=== PATIENT | male | born 1950 | race Caucasian/White ===

== ENCOUNTER 2018-11-21 01:36 | Outpatient (CLI) | payer MEDICARE, SELFPAY ==
[2018-11-21 12:21] LABS: ALT 28 U/L (12-78); AST 21 U/L (15-37); Albumin 3.7 g/dL (3.4-5.0); Alkaline Phosphatase 81 U/L (46-116); Anion Gap 6.8 mmol/L (3-11); BUN 20 mg/dL (7-18); Bilirubin, Total 0.3 mg/dL (0.2-1.0); CO2 32.2 mmol/L (21.0-32.0); CREATININE 0.96 mg/dL (0.70-1.30); Calcium 8.7 mg/dL (8.5-10.1); Chloride 98 mmol/L (98-107); Cholesterol 158 mg/dL (50-200); Glucose 91 mg/dL (70-100); HDL Cholesterol 35 mg/dL (40-60); LDL CHOLESTEROL 112 mg/dL (<100); Potassium 4.7 mmol/L (3.5-5.1); Sodium 137 mmol/L (136-145); Total Protein 7.5 g/dL (6.4-8.2); Triglyceride 77 mg/dL (30-150)
[2018-11-21 12:25] LABS: Abs Immature Grans 0.03 k/cumm (0.0-0.09); Absolute Basophil Count 0.06 k/cumm (0.0-0.2); Absolute Eosinophil Count 0.31 k/cumm (0.0-0.7); Absolute Lymphocyte Count 0.61 k/cumm (1.2-3.4); Absolute Monocyte Count 0.58 k/cumm (0.11-0.7); Absolute Neutrophil Count 3.83 k/cumm (1.2-6.7); Basophils % 1.1; Eosinophils % 5.7; HCT 47.3 % (40.0-50.0); Immature Grans % 0.6; Lymphocytes % 11.3; Mean Corp. HGB Concentration 31.7 g/dL (32.0-36.0); Mean Corpuscular Hemoglobin 27.5 pg (27.0-33.0); Mean Corpuscular Volume 86.8 fL (80-95); Mean Platelet Volume 9.9 fL (8.0-11.0); Monocytes % 10.7; Neutrophils % 70.6; Platelet Count 187 x1000/uL (130-400); RBC 5.45 m/cumm (4.50-6.00); RBC Distribution Width 15.8 % (11.8-14.1); White Blood Cell Count 5.42 k/cumm (4.4-10.8)
== END 2018-11-21 01:56 ==
PROVIDERS: PCP Internal Medicine; Visit Provider Internal Medicine
DX: I10 Essential (primary) hypertension (principal)
CPT/HCPCS: 36415; 80053; 80061; 83721; 85025

== ENCOUNTER 2020-08-30 02:51 | Outpatient (CLI) | payer MEDICARE, SELFPAY ==
[2020-08-30 13:29] LABS: CREATININE 0.93 mg/dL (0.70-1.30); Potassium 4.4 mmol/L (3.5-5.1)
== END 2020-08-30 03:11 ==
PROVIDERS: PCP Nurse Practitioner; Visit Provider Nurse Practitioner
DX: I10 Essential (primary) hypertension (principal)
CPT/HCPCS: 36415; 82565; 84132

== ENCOUNTER → 2020-10-17 08:47 | Outpatient (BNVA) | payer MEDICARE, SELFPAY | PROVIDERS: PCP Nurse Practitioner; Referring Provider Nurse Practitioner; Visit Provider Surgery | DX: Z12.11 Encounter for screening for malignant neoplasm of colon (principal) ==

== ENCOUNTER 2020-10-21 03:26 | Outpatient (CLI) | payer MEDICARE, SELFPAY ==
[2020-10-24 17:18] LABS: COVID-19 RT-PCR Result NEGATIVE (Negative)
== END 2020-10-21 03:46 ==
PROVIDERS: PCP Nurse Practitioner; Visit Provider Surgery
DX: Z11.59 Encounter for screening for other viral diseases (principal); Z01.818 Encounter for other preprocedural examination
CPT/HCPCS: U0003

== ENCOUNTER 2020-10-25 08:47 | Day surgery (SDC) | payer MEDICARE, SELFPAY ==
[2020-10-25 08:55] VITALS: BP 128/71; PULSE 80; RESP 19; TEMP 37; O2SAT 94
[2020-10-25] MEDS: Lactated Ringers 1,000 ML 80 ML IV (09:30)
--- NOTE | 2020-10-25 11:39 | W.PM.DSUDISC ---
Discharge Plan Disposition Patient Disposition: HOME Condition: Good Discharge Details Reason For Visit: Colonoscopy Attending Provider: Toña Carpenter Primary Care Provider: Jennifer Delgado Home Meds and New Rx's Prescriptions: Continued furosemide 40 mg tablet 40 mg PO DAILY Qty: 90 RF: 3 lisinopril [Zestril] 10 mg tablet 10 mg PO DAILY Qty: 90 RF: 4 omega-3 fatty acids 1,000 mg capsule 1,000 mg PO DAILY RF: 0 ascorbic acid (vitamin C) [Vitamin C] 500 MG tablet 500 mg PO DAILY RF: 0 vitamin E (dl, acetate) 200 UNIT capsule 200 unit PO DAILY RF: 0 calcium carbonate-vitamin D3 [Caltrate with Vitamin D3] 1 EACH tablet 1 ea PO DAILY RF: 0 Discharge Instructions Additional Instructions: Findings: Three polyps were removed. My office will contact you with biopsy results. Follow up: Plan for a colonoscopy in 1-3 years depending on biopsy results. Please call if you develop: fevers >101.5 Nausea or Vomiting Abdominal pain that is not transient Bleeding DAY SURGERY UNIT POST COLONOSCOPY INSTRUCTIONS 1. Because there will be medication in your system for the next 24 hours, you may feel a little sleepy. Your coordination will be affected. Therefore: a. Do not drive or operate dangerous equipment for 24 hours. b. Do not drink alcohol beverages for 24 hours (not even beer). c. Plan to go home and rest for the day. 2. Generally there are no restrictions on your activity after a day or so has gone by, but you may feel a bit fatigued for a few days. 3 After you arrive home you may have a light meal and return to a normal diet as you can tolerate it without feeling sick to your stomach. 4. After surgery, you may feel pain or discomfort. This should be only transient, but if it persists please contact your doctor. 5. If there are any questions regarding the findings of your procedure, please feel free to contact your doctor. 6. If you are unable to contact your doctor with a problem, contact the hospital at [phone]. 7. Continue all your regular medications unless directed otherwise. I understand the above instructions and have no questions. Signature of Patient or Responsible Adult Escort Date/Time Name of Responsible Adult Escort Signature of Nurse Date/Time Activity:: Activity as Tolerated Diet:: As Tolerated Discharge Orders Discharge Orders: Discharge Order (Routine); Ordered 10/25/20 Ordered By: Toña Carpenter DS: Diagnosis Discharge Diagnosis (1) Colon polyps: Status: Acute
--- NOTE | 2020-10-25 11:40 | W.COLOREPORT ---
Date of service: 10/25/20 Time of Service: 13:20 Colonoscopy Report Date of procedure: 10/25/20 Pre-op diagnosis general: Screening Post-op diagnosis procedure note: other (Polyp at hepatic flexure, rectal polyps times two. Mild diverticulosis) Procedure: Colonoscopy with snare polypectomy Surgeon: Toña Carpenter Anesthesia proc note operative: MAC Indications: This 70 year old man presents for screening colonoscopy. His last one in 2009 showed a submucosal lipoma. He has no symptoms or FH colon cancer. Procedure Description: The patient was placed in the left Fitzpatrick position. Propofol was titrated to sedation. Digital rectal examination revealed no abnormalities. The scope was advanced to the proximal ascending colon to the limit of the scope. This could not be navigated any further due to his large size and difficulty applying pressure. The prep was adequate. The scope was slowly withdrawn over the course of greater than 6 minutes with a less than 1cm polyp found at the hepatic flexure. This was removed with the snare and a hemostatic clip applied as a precaution. The polyp was not retrieved. No abnormalities were seen in the transverse, descending or sigmoid colon with the exception of mild diverticulosis. In the rectum a 2cm polyp on a short stalk was removed with the snare and retrieved. A hemostatic clip was applied to the site. An adjacent less than 1cm polyp was removed with the snare and sent in the same container. Retroflexed view was normal. The patient tolerated the procedure well and was stable to recovery. He will need a colonoscopy in 1-3 depending on biopsy results.
--- NOTE | 2020-10-25 12:30 | BOWEL_PTH ---
PATIENT: Ezio Paulson I LOC: [facility] U#:[id number] AGE/SX: 70/M ROOM: RE10/25/[address]: Toña Carpenter MD : 1950 BED: DIS: 10/25/2020 SPEC #: [id number] RECD: 10/25/20 17:50 STATUS: ALINA REQ #: [id number] GUSTAVO: 10/25/20 12:[address]: Toña Carpenter DEPT: Surgical Specimen RECD BY: Josie Crook ENTERED: 10/25/20 17:51 SP TYPE: Bowel OTHR DR: Jennifer Delgado, PhD HALF BACKER Tissues: 1 - BIOPSY BOWEL Procedures: GROSS AND MICRO LEVEL 4 Comments: [id number]
[2020-10-25 13:42] VITALS: BP 137/71; PULSE 68; RESP 17; TEMP 36.3; O2SAT 96
== END 2020-10-25 14:16 | disposition home or self-care (01) ==
PROVIDERS: PCP Nurse Practitioner; Visit Provider Surgery
PROC: 0DJD8ZZ Inspection of Lower Intestinal Tract, Via Natural or Artificial Opening Endoscopic (ICD-10-PCS; CPT 45378; principal; 2020-10-25 11:30)
DX: Z12.11 Encounter for screening for malignant neoplasm of colon (principal); D12.8 Benign neoplasm of rectum; K57.30 Diverticulosis of large intestine without perforation or abscess without bleeding; E66.9 Obesity, unspecified; Z68.43 Body mass index [BMI] 50.0-59.9, adult
CPT/HCPCS: 45385; 88305

== ENCOUNTER 2021-12-18 09:55 | Inpatient (IN) | payer MEDICARE, SELFPAY ==
[2021-12-18] VITALS (42 sets, daily range): BP systolic 121–168; BP diastolic 55–105; PULSE 81–113; RESP 16–27; TEMP 36.9–37.7; O2SAT 95–99
--- NOTE | 2021-12-18 10:15 | DI.CT_ITS ---
Exam(s) CT ABD AORTA CTA W RUNOFF EXAM: CT ABD AORTA CTA W RUNOFF CLINICAL HISTORY: trauma, decreased pulse, pain from knee to toes. TECHNIQUE: Imaging Protocol: Axial computed tomography images with coronal and sagittal reformatted images were created and reviewed CONTRAST MATERIAL: Intravenous: Omnipaque 350 Contrast volume:150 mL Oral: None COMPARISON: No exams were available for comparison FINDINGS: Abdominal aorta: There is no aneurysm nor significant stenosis in the abdominal aorta. No evidence o f significant stenosis at the level of the aortic bifurcation. Both common iliac arteries are patent . Upper normal diameters. No stenosis at the junction of the common and external iliac arteries on either side. Both internal iliac arteries are patent. Both external iliac arteries are patent with no evidence of significant stenosis. Both common femoral arteries are patent. Interpretation below the level groins is somewhat difficult because of opacification both arteries an d veins. RIGHT LOWER EXTREMITY: The right SFA is patent. Exhibits some mural thrombosis in Vitaliy's canal but with only mild stenosis at this level. Popliteal artery is patent. No evidence of popliteal artery aneurysm barron cyst is noted in the popliteal fossa. Interpretation below the level of the knees is difficult because of opacification of both anteriorly and venous systems. There is no obvious thrombosis within the venous lumens. Incidentally is a large joint effusion and Barron's cyst in the right knee. Degenerative changes in t he right knee. There is prominent edema throughout the entire right lower extremity below the knee. LEFT LOWER EXTREMITY: The left SFA is patent.. Left popliteal artery is patent. Large left knee camacho nt effusion and Barron's cyst in the popliteal fossa noted. No evidence of popliteal artery aneurysm. Interpretation below the level knee is difficult because of presence of both arterial and venous op acification. However, there appears to be probably three-vessel runoff in the calf. OTHER: There is abundant soft tissue edema. No distinct delineated fluid collection. IMPRESSION: 1. As above. Less than optimal study below the level knees because of the presence of simultaneous v enous and arterial enhancement bilaterally. No evidence of significant arterial stenosis in the abdo radha aorta, aortic bifurcation, aortoiliac segments nor in the SFA arteries nor in either popliteal arteries. Also no evidence of popliteal artery aneurysm. 2. Large bilateral knee joint effusions and bilateral popliteal Barron's cysts noted. 3. No evidence of abdominal aortic aneurysm. 4. No evidence of obvious venous thrombosis. 5. Diffusely edematous right lower extremity. No distinct fluid collection-abscess. RADIATION DOSE DELIVERED: 3,087.81mGy.cm Total DLP DATA REPOSITORY: All CT scans at this facility are submitted to the National Radiology Data Registry (NRDR) Dose Index Registry (DIR) with the [employer] ([employer]). RADIATION OPTIMIZATION: All CT scans at this facility use at least one of these dose optimization te chniques: automated exposure control; mA and/or kV adjustment per patient size (includes targeted exa ms where dose is matched to clinical indication); or iterative reconstruction.
--- NOTE | 2021-12-18 10:15 | RT.EKG_ITS ---
APPROVED REPORT Exam: Resting ECG Reason for Exam: tachycardia Patient Location: E HR:101 bpm ECG Measurements Heart Rate 101 AXIS NE 236 P -42 QRSd 128 QRS -71 QT 349 T 86 QTc 454 Conclusion Sinus tachycardia with irregular rate...V-rate 85-128, variation>10% Prolonged NE interval...NE >215, V-rate 91-120 Left bundle branch block...QRSd>120, broad/notched R sinus tachycardia with ectopy versus atrial fibrillation, intraventricular conduction delay, no STEMI
--- NOTE | 2021-12-18 10:15 | DI.US_ITS ---
Exam(s) US EXTREMITY VENOUS BI EXAM: US EXTREMITY VENOUS BI CLINICAL HISTORY: b/l lower leg pain TECHNIQUE: Grayscale, color, and doppler imaging of the deep venous system of both lower extremities was performed. COMPARISON: No exams were available for comparison FINDINGS: There is no evidence of intraluminal thrombus and there is normal compression and augmentation demons trated within the common femoral veins, femoral veins, and popliteal veins of both lower extremities. In the calves the interrogated veins also exhibit normal compression/ augmentation properties. The greater saphenous veins also appear patent as do the saphenofemoral junctions bilaterally.. IMPRESSION: 1. No ultrasound evidence of DVT in either lower extremity. DATA REPOSITORY:
--- NOTE | 2021-12-18 10:23 | W.ED.GENAD ---
Discharge Plan Disposition Patient Disposition: [facility] INPATIENT Discharge Details Chief Complaint: Cellulitis Clinical Impression: Cellulitis, Rhabdomyolysis Admit Date/Time: 12/18/21 14:54 Admit Provider: Susy Roa Attending Provider: Susy Roa Primary Care Provider: Jennifer Delgado ED Provider: Juanis Winslow Discharge Data Discharge Date/Time-TO BE ENTERED AT DEPARTURE: 12/18/21 15:29 Medical Decision Making Ezio Paulson is a 71-year-old man with history of hypertension, obesity presenting to emergency department with right lower leg pain. Patient reports that he has been feeling generally unwell since yesterday morning. Patient reports that he has recently been treated for cellulitis of the right lower leg, has had ongoing issues with infection in this leg but is not currently on any antibiotics. Record review shows clinic note 11/07/2021 for wound care visit for right lower extremity cellulitis, patient not prescribed any antibiotics at that time as exam was apparently improving. Patient reports that he has had gradually worsening pain and swelling in the right lower leg. Patient reports that yesterday he felt generally unwell, and thinks that he may have had a fever yesterday morning. Patient reports that he fell yesterday at approximately 6 PM. He states that he went to stand up, and felt that my legs would not hold me. And fell to the ground. Patient reports that he remembers entire event, did not hit his head, no loss of consciousness. Patient reports he was unable to stand on his own after the fall, and spent the night on the floor. He was able to call EMS this morning who provided a lift assist, however patient fell again, could not get off the floor, and patient was brought to the emergency department. He reports pain in both legs from the knees down, however reports the pain in the right lower extremity is significantly worse than the left. Patient noted to have cyanotic discoloration of the right foot worse than the left, patient reports that he believes this is new. He denies any other pain, numbness, localized weakness, vomiting, diarrhea, shortness of breath, cough. He reports chronic rash to the right lower leg that he believes is worsening, denies any other rash. Denies any trauma other than falls as above. Exam shows Pt alert, conversing normally, ill-appearing. Borderline tachycardia. B/l LE edema, R>>L, diffuse chronic skin changes to the right lower leg with surrounding circumferential erythema, right DP pulse intact but decreased compared to left, mild cyanosis of right foot, able to range right ankle, diffuse TTP of the right knee, lower leg, and foot, diffuse mild TTP of the left knee, lower leg, and foot. No TTP of the hips b/l. Concern for cellulitis, possible fx of the right knee/tib/fib, vascular compromise of the RLE, early sepsis, rhabdo, metabolic/lyte derangement. Exam/hx at this time not c/w acute emergent intra-cranial trauma, ACS, acute aortic pathology, compartment syndrome. Doubt nec fasc. Plan for IV placement, EKG, telemetry, screening labs, CTA LEs, DVT studies b/l LEs, IV vancomycin, IVF hydration. CT shows no gas, no fx, no DVT, no arterial occlusion. Labs show WBC 21.55, Cr 1.4, Ck >10,000. Plan for admission. Medical Records Medical records reviewed: Yes I reviewed the patient's medical records. Imaging Data Radiologic Study: Attestation: I personally reviewed and interpreted this imaging study as follows: Radiologist's impression: Exam(s) CT ABD AORTA CTA W RUNOFF EXAM: ? CT ABD AORTA CTA W RUNOFF CLINICAL HISTORY: ? trauma, decreased pulse, pain from knee to toes. ? TECHNIQUE:? Imaging Protocol: Axial computed tomography images with coronal and sagittal reformatted images were created and reviewed CONTRAST MATERIAL:? Intravenous: Omnipaque 350 Contrast volume:150 mL Oral: None COMPARISON:? No exams were available for comparison FINDINGS: Abdominal aorta: There is no aneurysm nor significant stenosis in the abdominal aorta.? No evidence of significant stenosis at the level of the aortic bifurcation.? Both common iliac arteries are patent.? Upper normal diameters.? No stenosis at the junction of the common and external iliac arteries on either side.? Both internal iliac arteries are patent.? Both external iliac arteries are patent with no evidence of significant stenosis.? Both common femoral arteries are patent. Interpretation below the level groins is somewhat difficult because of opacification both arteries and veins. RIGHT LOWER EXTREMITY: The right SFA is patent.? Exhibits some mural thrombosis in Vitaliy's canal but with only mild stenosis at this level.? Popliteal artery is patent.? No evidence of popliteal artery aneurysm barron cyst is noted in the popliteal fossa.? Interpretation below the level of the knees is difficult because of opacification of both anteriorly and venous systems. There is no obvious thrombosis within the venous lumens. Incidentally is a large joint effusion and Barron's cyst in the right knee.? Degenerative changes in the right knee. There is prominent edema throughout the entire right lower extremity below the knee. LEFT LOWER EXTREMITY: The left SFA is patent..? Left popliteal artery is patent.? Large left knee joint effusion and Barron's cyst in the popliteal fossa noted.? No evidence of popliteal artery aneurysm.? Interpretation below the level knee is difficult because of presence of both arterial and venous opacification.? However, there appears to be probably three-vessel runoff in the calf. OTHER: There is abundant soft tissue edema.? No distinct delineated fluid collection. IMPRESSION: 1. As above.? Less than optimal study below the level knees because of the presence of simultaneous venous and arterial enhancement bilaterally.? No evidence of significant arterial stenosis in the abdominal aorta, aortic bifurcation, aortoiliac segments nor in the SFA arteries nor in either popliteal arteries.? Also no evidence of popliteal artery aneurysm. 2. Large bilateral knee joint effusions and bilateral popliteal Barron's cysts noted. 3. No evidence of abdominal aortic aneurysm. 4. No evidence of obvious venous thrombosis. 5.? Diffusely edematous right lower extremity.? No distinct fluid collection-abscess. EXAM:? US EXTREMITY VENOUS BI CLINICAL HISTORY:? b/l lower leg pain TECHNIQUE:? Grayscale, color, and doppler imaging of the deep venous system of both lower extremities was performed. COMPARISON:? No exams were available for comparison FINDINGS: There is no evidence of intraluminal thrombus and there is normal compression and augmentation demonstrated within the common femoral veins, femoral veins, and popliteal veins of both lower extremities. In the calves the interrogated veins also exhibit normal compression/ augmentation properties. The greater saphenous veins also appear patent as do the saphenofemoral junctions bilaterally.. IMPRESSION: 1.? No ultrasound evidence of DVT in either lower extremity. Lab Data Lab results reviewed: Yes I reviewed the patient's lab results. ECG Data Attestation: I personally reviewed and interpreted this ECG (s) as follows: Interpretation: EKG shows sinus tachycardia with ectopy versus atrial fibrillation, intraventricular conduction delay, no STEMI EKG 10:37 shows sinus rhythm at 99, frequent PVCs, intraventricular conduction delay, no STEMI, nondiagnostic EKG HPI General Date/Time Provider Initiated Documentation: 12/18/21 09:57. Limitations to Documentation: no limitations. Information obtained by: RN notes reviewed and old records reviewed. HPI Narrative: Ezio Paulson is a 71-year-old man with history of hypertension, obesity presenting to emergency department with right lower leg pain. Patient reports that he has been feeling generally unwell since yesterday morning. Patient reports that he has recently been treated for cellulitis of the right lower leg, has had ongoing issues with infection in this leg but is not currently on any antibiotics. Record review shows clinic note 11/07/2021 for wound care visit for right lower extremity cellulitis, patient not prescribed any antibiotics at that time as exam was apparently improving. Patient reports that he has had gradually worsening pain and swelling in the right lower leg. Patient reports that yesterday he felt generally unwell, and thinks that he may have had a fever yesterday morning. Patient reports that he fell yesterday at approximately 6 PM. He states that he went to stand up, and felt that my legs would not hold me. And fell to the ground. Patient reports that he remembers entire event, did not hit his head, no loss of consciousness. Patient reports he was unable to stand on his own after the fall, and spent the night on the floor. He was able to call EMS this morning who provided a lift assist, however patient fell again, could not get off the floor, and patient was brought to the emergency department. He reports pain in both legs from the knees down, however reports the pain in the right lower extremity is significantly worse than the left. Patient noted to have cyanotic discoloration of the right foot worse than the left, patient reports that he believes this is new. He denies any other pain, numbness, localized weakness, vomiting, diarrhea, shortness of breath, cough. He reports chronic rash to the right lower leg that he believes is worsening, denies any other rash. Denies any trauma other than falls as above. Related Data Home Medications Medication Instructions Recorded Confirmed ascorbic acid (vitamin C) 500 mg 500 mg PO DAILY tab 04/20/13 12/18/21 tablet (Vitamin C) calcium carbonate 600 mg-vitamin 1 ea PO DAILY cap 04/20/13 12/18/21 D3 20 mcg (800 unit) tablet (Caltrate with Vitamin D3) vitamin E (dl, acetate) 90 mg (200 200 unit PO DAILY cap 04/20/13 12/18/21 unit) capsule omega-3 fatty acids 1,000 mg 1,000 mg PO DAILY 11/17/18 12/18/21 capsule lisinopril 20 mg tablet 20 mg PO DAILY #90 tab 10/13/21 12/18/21 triamcinolone acetonide 0.1 % 1 applic TOPICAL DAILY #453.6 g 10/24/21 12/18/21 topical cream furosemide 40 mg tablet 40 mg PO DAILY #90 tab 11/07/21 12/18/21 Previous Rx's Medication Instructions Recorded lisinopril 20 mg tablet 20 mg PO DAILY #90 tab 10/13/21 triamcinolone acetonide 0.1 % 1 applic TOPICAL DAILY #453.6 g 10/24/21 topical cream furosemide 40 mg tablet 40 mg PO DAILY #90 tab 11/07/21 Allergies Allergy/AdvReac Type Severity Reaction Status Date / Time amoxicillin Allergy Intermediate SKIN RASH Verified 12/18/21 10:14 cephalexin monohydrate Allergy Intermediate Skin Rash Verified 12/18/21 10:14 [From Keflex] clavulanic acid Allergy Intermediate SKIN RASH Verified 12/18/21 10:14 clindamycin Allergy Intermediate HIVES, Verified 12/18/21 10:14 ITCHING General Stated Complaint: Cellulitis ALMA: 2 Review of Systems Narrative: Constitutional: Reports subjective fevers Eyes: denies eye pain ENT: denies ear pain, dental pain, sore throat Cardiovascular: denies chest pain, reports acute on chronic LE edema, R>L Respiratory: denies SOB, cough GI: denies abdominal pain, vomiting, diarrhea : denies flank pain MSK: denies back pain, neck pain, reports diffuse pain in b/l LEs from knees down, R>L Skin: reports chronic rash RLE, now worse Neuro: denies headaches, numbness, weakness PFSH All Active Problems (Updated 12/22/21 @ 13:21 by Juanis Winslow MD) Discharge planning issues (Acute) DVT prophylaxis (Acute) Bacteremia (Acute) Rhabdomyolysis (Acute) Cellulitis (Acute) Edema (Acute) Tubulovillous adenoma (Acute ~10/2020) Colon polyps (Acute) Obesity (Acute 05/27/13) Low back pain (Chronic) 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) Essential hypertension (Acute 08/04/13) Medical History History of alcoholism quit 1989 History of tobacco use quit in 1995 Renal failure syndrome (05/27/13) Ulcer of other part of foot (10/03/95) Surgical History (Updated 12/22/21 @ 10:53 by Yadira Sepulveda NP) History of colonoscopy History of excision of mass PROCEDURES EXCIS SPINAL CORD LESION, 1981 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 Sister No problems noted. Sister No problems noted. Sister No problems noted. Social History Smoking/Tobacco Use Status: Former Tobacco Use tobacco type: cigarettes Quit Date: 11/04/95 Second Hand Exposure: No Smoking risk assessment performed?: Yes Alcohol Intake: former Drug use: Never Substance use type: does not use Details: Pt states sober since 1995 Caregiver/Support person: No Do you need help understanding health information?: Never Pets and animals: No Sexually active: No Do you think of yourself as: straight/heterosexual Current gender identity: male What is your relationship status?: How often do you talk on the phone with friends or family?: twice per week How often do you get together with friends or relatives?: once per week How often do you attend scientologist or christianity services?: decline to answer Do you belong to any clubs or organized social groups?: no Panel score (0-1 are the most socially isolated patients): 1 What type of physical activity do you participate in: weight lifting Duration: 15-30 minutes/day Frequency: 5-6 times per week Dasha/Baptist: No preference Special dasha needs: No Seatbelt use: always Helmet use: No Drive intox or ride w/intox service parts driver: No Do you feel safe at home: Yes Victim of physical abuse: No Victim of emotional abuse: No Victim of sexual abuse: No Exam Narrative Exam Narrative: Constitutional: ill-appearing, pleasant, conversing normally HENT: head atraumatic/normocephalic/normal inspection, mucous membranes moist Eyes: conjunctiva normal, sclera normal, pupils 3mm b/l Neck: no stridor, normal ROM, trachea midline Chest: normal inspection Resp: normal work of breathing, LCTAB Cardio: borderline tachycardic rate, irregular rhythm GI: abdomen soft, non-tender, non-distended Skin: warm, dry, normal color Neuro: alert, not altered, grossly non-focal, normal tone Ext: b/l LE edema, R>>L, diffuse chronic skin changes to the right lower leg with surrounding circumferential erythema, right DP pulse intact but decreased compared to left, mild cyanosis of right foot, able to range right ankle, diffuse TTP of the right knee, lower leg, and foot, diffuse mild TTP of the left knee, lower leg, and foot. No TTP of the hips b/l. Compartments soft b/l LEs. Psych: normal mood, normal affect, normal behavior Course Vital Signs Vital signs: Vital Signs Temperature 37.1 C 12/18/21 10:05 Pulse 100 H 12/18/21 10:05 Respiratory Rate 16 12/18/21 10:05 Blood Pressure 160/103 H 12/18/21 10:05 Pulse Oximetry 97 12/18/21 10:05 Temperature 37.1 C 12/18/21 10:05 Temperature Source Skin 12/18/21 10:05 Pulse 100 H 12/18/21 10:05 Respiratory Rate 16 12/18/21 10:05 Respiratory Effort 12/18/21 10:05 Blood Pressure 160/103 H 12/18/21 10:05 Pulse Oximetry 97 12/18/21 10:05 Pain Level 8 12/18/21 10:05 Comment 12/18/21 10:05 Lab/Test Results Lab/Test Results: 12/18/21 10:15 Blood Blood Culture - Pending 12/18/21 10:15 Blood Blood Culture - Pending
--- NOTE | 2021-12-18 10:30 | RT.EKG_ITS ---
APPROVED REPORT Exam: Resting ECG Reason for Exam: tachycardia Patient Location: E HR:99 bpm ECG Measurements Heart Rate 99 AXIS MS 214 P -70 QRSd 130 QRS -69 QT 349 T 83 QTc 452 Conclusion Sinus rhythm...normal P axis, V-rate 60- 99 Atrial premature complexes...SV complexes w/ short R-R intvls Borderline prolonged MS interval...MS >207, V-rate 91-120 ST elevation secondary to IVCD...Multiple VCG criteria ST elevation, consider inferior injury...ST >0.08mV, II III aVF sinus rhythm at 99, frequent PVCs, and of intraventricular conduction delay, no STEMI, nondiagnostic EKG
[2021-12-18 10:34] LABS: Bilirubin Small (Negative); Blood Moderate (Negative); Clarity Sl Cloudy (Clear); Glucose Negative (Negative); Ketones Negative (Negative); Leukocyte Esterase Negative (Negative); Nitrite Negative (Negative); Specific Gravity 1.025 (1.005-1.025); Urobilinogen 0.2 EU/dL (Up TO 0.2)
[2021-12-18 10:41] LABS: Bacteria Negative HPF (Negative); C & S Indicated? No; Crystals Rare Amorphous HPF (Negative); Epithelial Cells Few HPF (Negative); Mucus Trace (Negative); WBC 0-2 HPF (0-5)
[2021-12-18] MEDS: MORPHine 4 MG/ML SYR IVP (10:52)
[2021-12-18] MEDS: VANCOMYCIN/WATER (PEG) 2 GM/400 ML BAG IVPB (11:25)
[2021-12-18 11:26] LABS: Abs Immature Grans 0.29 10^3/uL (0.0-0.06); Absolute Basophil Count 0.06 10^3/uL (0.0-0.2); Absolute Neutrophil Count 20.58 10^3/uL (1.2-6.7); Basophils % 0.3; HCT 47.2 % (40.0-50.0); HGB 15.2 g/dL (13.5-17.5); Immature Grans % 1.3; Lactate 2.4 mmol/L (0.6-1.4); Lymphocytes % 0.6; MCH 27.4 pg (27.0-33.0); MCHC 32.2 % (32.0-36.0); MPV 9.5 fL (8.0-11.0); Monocytes % 2.3; Neutrophils % 95.5; Nucleated RBC 0 %; Platelet Count 214 10^3/uL (130-400); RBC 5.55 10^6/uL (4.36-5.78); RDW 14.4 % (11.8-14.1); RDW-SD 45.1 fL; WBC 21.55 10^3/uL (4.4-10.8)
[2021-12-18 11:34] LABS: Absolute Lymphocyte Count 0.13 10^3/uL (1.2-3.4)
[2021-12-18 11:39] LABS: ALT 135 U/L (16-63); AST 568 U/L (15-37); Albumin 3.1 g/dL (3.4-5.0); Alkaline Phosphatase 70 U/L (46-116); Anion Gap 7.7 mmol/L (3-11); BUN 28 mg/dL (7-18); Bilirubin, Total 0.9 mg/dL (0.2-1.0); CO2 25.3 mmol/L (21.0-32.0); CREATININE 1.4 mg/dL (0.70-1.30); Calcium 9.1 mg/dL (8.5-10.1); Chloride 97 mmol/L (98-107); Estimated GFR 49.82 (mL/min/1.73m2); Glucose 101 mg/dL (74-106); Potassium 4.3 mmol/L (3.5-5.1); Sodium 130 mmol/L (136-145); Total Protein 7.9 g/dL (6.4-8.2)
[2021-12-18 11:43] LABS: Diff Comment Diff Reviewed; RBC Morphology Normal
[2021-12-18] MEDS: Omnipaque 350 MG/ML 50 ML BTL IJ (13:00)
[2021-12-18] MEDS: Omnipaque 350 MG/ML 100 ML BTL IJ (13:00)
--- NOTE | 2021-12-18 15:01 | HPE_ITS ---
Date of service: 12/18/21 Time of Service: 15:02 Assessment and Plan Assessment and plan (1) Rhabdomyolysis: Status: Acute Assessment and plan: admitted to med/surg CK greater than 10k on floor all night give IV fluids and watch kidney function closely renal dosing avoid nephrotoxic drugs. (2) Cellulitis: Status: Acute Assessment and plan: continue vancomycin, pharmacy dosing elevate RLE above level of the heart wound care consult Qualifiers: Laterality: right Site of cellulitis of extremity: lower extremity (3) Acute kidney injury: Status: Acute Assessment and plan: IV fluids watch kidney function closely renal dosing (4) Edema: Status: Acute Assessment and plan: takes lasix at home will continue watching kidney function closely (5) Essential hypertension: Status: Acute Assessment and plan: continue home meds for now and monitor kidney function closely. discussed with DR Roa History of Present Illness History of Present Illness Chief Complaint: leg pain redness Narrative: this is a morbidly obese gentlemen with history of hypertension and edema, recently treatment at [facility] for right lower extremity cellulitis who was in his usual state of health and doing ok until 2 days ago when he developed right lower extremity pain swelling and redness. He states he also had generalized malaise and weakness and had multiple falls accordingly. the night prior he spent the night on the floor cause he was too week to get up. In the am he was transported to the ED for evaluation. work up concerning for cellulitis, also found to have rhabdomyolysis with add on CK of greater than 1 0k. He was admitted to hospitalist services for further management. was given vanco in ED. will start on IV fluids. 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 Sister No problems noted. Sister No problems noted. Sister No problems noted. Social History (Updated 10/14/21 @ 10:32 by Dena Blanco) Smoking/Tobacco Use Status: Former Tobacco Use tobacco type: cigarettes Quit Date: 11/04/95 Second Hand Exposure: No Smoking risk assessment performed?: Yes Alcohol Intake: former Drug use: Never Substance use type: does not use Details: Pt states sober since 1995 Caregiver/Support person: No Do you need help understanding health information?: Never Pets and animals: No Sexually active: No Do you think of yourself as: straight/heterosexual Current gender identity: male What is your relationship status?: How often do you talk on the phone with friends or family?: twice per week How often do you get together with friends or relatives?: once per week How often do you attend anabaptist or tenriism services?: decline to answer Do you belong to any clubs or organized social groups?: no Panel score (0-1 are the most socially isolated patients): 1 What type of physical activity do you participate in: weight lifting Duration: 15-30 minutes/day Frequency: 5-6 times per week Dasha/Quaker: No preference Special dasha needs: No Seatbelt use: always Helmet use: No Drive intox or ride w/intox motorcoach driver: No Do you feel safe at home: Yes Victim of physical abuse: No Victim of emotional abuse: No Victim of sexual abuse: No Meds Allergies and Home Medications Allergies Allergy/AdvReac Type Severity Reaction Status Date / Time amoxicillin Allergy Intermediate SKIN RASH Verified 12/18/21 10:14 cephalexin monohydrate Allergy Intermediate Skin Rash Verified 12/18/21 10:14 [From Keflex] clavulanic acid Allergy Intermediate SKIN RASH Verified 12/18/21 10:14 clindamycin Allergy Intermediate HIVES, Verified 12/18/21 10:14 ITCHING Home Medications Medication Instructions Recorded Confirmed Type ascorbic acid (vitamin C) 500 mg 500 mg PO DAILY tab 04/20/13 12/18/21 History tablet (Vitamin C) calcium carbonate 600 mg-vitamin 1 ea PO DAILY cap 04/20/13 12/18/21 History D3 20 mcg (800 unit) tablet (Caltrate with Vitamin D3) vitamin E (dl, acetate) 90 mg (200 200 unit PO DAILY cap 04/20/13 12/18/21 History unit) capsule omega-3 fatty acids 1,000 mg 1,000 mg PO DAILY 11/17/18 12/18/21 History capsule lisinopril 20 mg tablet 20 mg PO DAILY #90 tab 10/13/21 12/18/21 Rx triamcinolone acetonide 0.1 % 1 applic TOPICAL DAILY #453.6 g 10/24/21 12/18/21 Rx topical cream furosemide 40 mg tablet 40 mg PO DAILY #90 tab 11/07/21 12/18/21 Rx Exam Const General: cooperative and ill appearing chronically Nutritional Appearance: obese morbidly obese Orientation: alert, awake and oriented x3 HENMT Head: normal to inspection, normocephalic and atraumatic Mouth: moist mucous membranes abnormal (dry) Chest Chest: normal inspection of the chest Resp Effort & Inspection: normal respiratory effort Auscultation: diminished lung sounds (bases) Cardio Rate: regular rate Rhythm: regular rhythm GI Inspection: large pannus and obesity Palpation: soft General: other (grant to gravity draining clear yellow medium urine) Skin Rashes: rashes noted (under breast, pannus and right lower extremity) and other (RLE: erythematous within skin markings, yellow crust, see NN) Neuro General: patient alert, patient awake, patient oriented x3 and no focal motor deficits Cognition: normal cognition Speech: speech normal Gait: other (only able to sit on edge of bed) Motor: muscle tone normal throughout Extrem General: edema Laterality: bilateral (right greater than left. ) Psych Mental Status: mental status grossly normal Speech and Movement: speech and movement normal Mood: congruent mood Affect: normal affect Attitude: cooperative Thought Process: normal Thought Content: normal Insight: insight good Judgment: judgment good Results Labs Result diagrams: 12/19/21 06:20 12/19/21 06:20 Labs: Laboratory Results - last 24 hr 0212/18/21 12/18/21 10:20 11:20 11:20 WBC RBC Hgb Hct MCV MCH MCHC RDW Plt Count MPV Immature Gran % Neutrophils % Lymphocytes % Monocytes % Eosinophils % Basophils % Nucleated RBC % Absolute Neutrophils Absolute Lymphocytes Absolute Monocytes Absolute Eosinophils Absolute Basophils RBC Morphology VBG Lactate 2.4 H* Sodium 130 L Potassium 4.3 Chloride 97 L Carbon Dioxide 25.3 Anion Gap 7.7 BUN 28 H Creatinine 1.4 H Estimated GFR/1.73 m2 49.82 Glucose 101 Calcium 9.1 Total Bilirubin 0.9 AST 568 H ALT 135 H Alkaline Phosphatase 70 Total Protein 7.9 Albumin 3.1 L Urine Color Dark Yellow Urine Clarity Sl Cloudy Urine pH 6.0 Ur Specific [place] 1.025 Urine Protein 100 H Urine Ketones Negative Urine Blood Moderate H Urine Nitrite Negative Urine Bilirubin Small H Urine Urobilinogen 0.2 Ur Leukocyte Esterase Negative Urine RBC 10-20 H Urine WBC 0-2 Ur Epithelial Cells Few Urine Crystals Rare Amorphous Urine Bacteria Negative Urine Casts 10-20 Fine Granular Urine Mucus Trace Ur Culture Indicated? No Urine Glucose Negative 12/18/21 11:20 WBC 21.55 H RBC 5.55 Hgb 15.2 Hct 47.2 MCV 85.0 MCH 27.4 MCHC 32.2 RDW 14.4 H Plt Count 214 MPV 9.5 Immature Gran % 1.3 Neutrophils % 95.5 Lymphocytes % 0.6 Monocytes % 2.3 Eosinophils % 0.0 Basophils % 0.3 Nucleated RBC % 0 Absolute Neutrophils 20.58 H Absolute Lymphocytes 0.13 L Absolute Monocytes 0.50 Absolute Eosinophils 0.00 Absolute Basophils 0.06 RBC Morphology Normal VBG Lactate Sodium Potassium Chloride Carbon Dioxide Anion Gap BUN Creatinine Estimated GFR/1.73 m2 Glucose Calcium Total Bilirubin AST ALT Alkaline Phosphatase Total Protein Albumin Urine Color Urine Clarity Urine pH Ur Specific [place] Urine Protein Urine Ketones Urine Blood Urine Nitrite Urine Bilirubin Urine Urobilinogen Ur Leukocyte Esterase Urine RBC Urine WBC Ur Epithelial Cells Urine Crystals Urine Bacteria Urine Casts Urine Mucus Ur Culture Indicated? Urine Glucose Last Vital Signs Temp 37.1 C 12/18/21 10:05 Pulse 100 H 12/18/21 10:05 Resp 16 12/18/21 10:05 BP 160/103 H 12/18/21 10:05 Pulse Ox 97 12/18/21 10:05
[2021-12-18] MEDS: Normal Saline 500 ML IV (15:08)
[2021-12-18 15:57] LABS: Creatine Kinase > 10000 U/L (39-308)
[2021-12-18 16:14] LABS: COVID-19 PCR Negative (Negative); Source Nasal/Nares
[2021-12-18] MEDS: traMADol 50 MG TAB PO (17:19)
[2021-12-18] MEDS: Normal Saline 1,000 ML 100 ML IV (17:53)
[2021-12-18] MEDS: Acetaminophen 325 MG TAB 650 MG PO (20:04)
[2021-12-18] MEDS: Nystatin CREAM 15 GM TUBE TP (20:05)
[2021-12-18] MEDS: Nystatin POWDER 60 GM JAR TP (20:05)
[2021-12-18] MEDS: Normal Saline Flush 10 ML SYR (21:56)
--- NOTE | 2021-12-19 | DI.RAD_ITS ---
Exam(s) XR KNEE RT 2V AP,LAT EXAM: XR KNEE RT 2V AP,LAT CLINICAL HISTORY: fall, pain. TECHNIQUE: 2D digital imaging was performed. COMPARISON: No exams were available for comparison FINDINGS: Limited two view study of the right knee performed portable AP and cross-table lateral reveals no nabila dence of obvious fracture but there is a prominent joint effusion filling and expanding the suprapate llar bursa. There is [id number] narrowing of the medial compartment and there is a large degenerat cy subarticular cyst in the sub spinous tibial plateau. More moderate narrowing of noted in the lat eral compartment. Degenerative changes in the patellofemoral compartment also noted. Janki-Sti joaquín type calcification is noted adjacent to the outer aspect of the medial femoral condyle, probably related to prior MCL injury. IMPRESSION: Advanced degenerative changes. Large joint effusion which may or may not be related to the degenerat cy changes. DATA REPOSITORY: RADIATION DOSE DELIVERED:
--- NOTE | 2021-12-19 | DI.US_ITS ---
APPROVED REPORT EXAM: Comprehensive 2D, Doppler, and color-flow Echocardiogram Patient Location: In-Patient Room/Bed: [address] [employer] Agent: Stephanie Chester RDCS (AE) Indications: Bacteremia Other Information Study Quality: Fair. Technically limited study due to body habitus, inability to position patient exa m done supine bedside. Conclusion Normal left ventricular wall thickness and chamber size. Estimated ejection fraction is approximatel y 60%. Wall motion appears normal Normal right ventricular size and systolic function Both atria are normal in size Aortic valve sclerosis without stenosis or regurgitation Mild mitral annular calcification. Mild mitral regurgitation Normal tricuspid valve with trace to mild regurgitation. Estimated right ventricular systolic pressu re is 27 mmHg Wall motion Left Ventricle The left ventricle is upper normal size. The left ventricular systolic function is normal. The left v entricular ejection fraction is within the normal range. Moderate concentric left ventricular hypertr ophy. There is normal LV segmental wall motion. There is no ventricular septal defect visualized. LVE F is 59%. Right Ventricle The right ventricle is normal size. Right ventricular systolic function is grossly normal. The RVSP i s 27.1 mmHg. Atria The left atrium size is normal. The right atrium size is normal. The interatrial septum is intact wit h no evidence for an atrial septal defect. Aortic Valve The Aortic valve is sclerotic. Aortic valve is probably trileaflet. There is no aortic valvular steno sis. No aortic regurgitation is present. Mitral Valve Moderate mitral annular calcification. No evidence of mitral valve stenosis. Mild mitral regurgitatio n.n. Tricuspid Valve The tricuspid valve is normal in structure. There is no tricuspid valve stenosis. Trace to mild tricu spid regurgitation. Pulmonic Valve Pulmonic valve is not well visualized. There is no pulmonic valvular stenosis. There is no pulmonic v alvular regurgitation. Great Vessels The aortic root is normal in size. Ascending aorta is not well visualized. Aortic arch is not well vi sualized. IVC is normal in size and collapses >50% with inspiration. Pericardium There is no pericardial effusion. 2D Dimensions IVSD d PLAX 1.36 cm M: 0.6-1.2 LV Vol A2C d MOD 166.0 mL LVPW d PLAX 1.35 cm M: 0.6 - 1.2 LV Vol A4C d MOD 157.1 mL LVID d PLAX 5.76 cm M: 4.2 - 5.8 LA vol/ BSA A2C s A-L 30.9 mL/m2 LVDs 4.00 cm M: 2.5 - 4.0 LA vol/ BSA A4C s A-L 34.1 mL/m2 Ao Root d 3.42 cm M: 3.1 - 3.7 LA Vol/ BSA Biplane s A-L 32.9 mL/m2 RA Area A4C 24.29 cm2 LA Area A4C s MOD 26.16 cm2 RA Vol/ BSA A4C s A-L 29.7 mL/m2 LA Area A2C s MOD 24.61 cm2 LV EF Teichholz 57.3 % LV EF A4C MOD 59.8 % LVEF (Oneill's) 59.49 % M: 52 - 72 LV EF A2C MOD 60.6 % LV Volume 114.75 mL M: 62 - 150 LV EF Biplane MOD 59.5 % LV Volume Index 43.63 mL/m2 M: 34 - 74 SV 98.99 mL LV Vol Biplane MOD 166.4 mL SV Index 37.55 mL/m2 FS 30.50 % M-Mode TAPSE 2.72 cm (M/F) >1.7 LV Diastology MV E' medial 0.095 (>0.07 m/s) E/A Ratio 0.9 LV E/e MED 10.65 (<14) MV E Vmax 1.01 (0.4-1.3 m/s) MV E' lateral 0.114 (>0.1 m/s) MV A Vmax 1.10 (0.4-1.3 m/s) LV E/e LAT 8.80 (<14) MV E/A Ratio 0.90 MV E/E' medial 10.66 MV E/E' lateral 8.83 Aortic Valve LVOT Area 3.05 cm2 AoV Area Vmax 2.12 cm2 LVOT Vmax 1.22 m/s AoV Area/ BSA (Vmax) 0.80 cm2/m2 LVOT Mean Natalio. 0.78 m/s JEFF Mean Natalio. 1.90 cm2 LVOT Peak Grad 6.0 mmHg JEFF Mean Natalio. Index 0.72 cm2/m2 LVOT Mean Grad 2.9 mmHg LVOT VTI 0.227 m LVOT Diam s 1.95 cm AoV Vmax 1.76 m/s Velocity Ratio 0.69 AoV Mean Natalio. 1.25 m/s AoV Peak Grad 12.3 mmHg LVOT SV 69.23 mL AoV Mean Grad 7.0 mmHg AoV VTI 0.314 m AoV Area VTI 2.20 cm2 AoV Area/ BSA (VTI) 0.84 cm/m2 Mitral Valve MV DT 158 (160-240 msec) MV PHT 46 msec MV Area PHT 4.79 cm2 MV VTI 0.305 m MV Area VTI 2.27 (4.0-6.0 cm2) Pulmonary Valve PV Vmax 1.09 (0.5-1.5 m/s) RVOT Peak Gr. 1.58 mmHg PV Peak Grad 4.8 mmHg RVOT Mean Gr. 0.90 mmHg PV Mean Grad 2.8 mmHg RVOT VTI 0.139 m PV VTI 0.211 m RVOT Vmax 0.63 m/s Tricuspid Valve TR Peak Grad 24.1 mmHg TR Vmax 2.46 m/s RA Pressure 3.00 mmHg RVSP (TR) 27.1 mmHg
[2021-12-19] MEDS: VANCOMYCIN/WATER (PEG) 1.25 GM/250 ML BAG IV ×2 (01:03→13:45)
[2021-12-19] MEDS: Normal Saline 1,000 ML 100 ML IV (06:19)
[2021-12-19 07:04] LABS: HCT 43.8 % (40.0-50.0); HGB 13.7 g/dL (13.5-17.5); MCH 27.3 pg (27.0-33.0); MCHC 31.3 % (32.0-36.0); MCV 87.3 fL (80-95); MPV 9.6 fL (8.0-11.0); Nucleated RBC 0 %; Platelet Count 184 10^3/uL (130-400); RBC 5.02 10^6/uL (4.36-5.78); RDW 14.6 % (11.8-14.1); RDW-SD 47.1 fL; WBC 19.88 10^3/uL (4.4-10.8)
[2021-12-19 07:19] LABS: Anion Gap 11.2 mmol/L (3-11); BUN 28 mg/dL (7-18); CO2 23.8 mmol/L (21.0-32.0); CREATININE 1.3 mg/dL (0.70-1.30); Calcium 8.7 mg/dL (8.5-10.1); Chloride 99 mmol/L (98-107); Estimated GFR 54.26 (mL/min/1.73m2); Glucose 84 mg/dL (74-106); Sodium 134 mmol/L (136-145)
[2021-12-19 07:23] VITALS: BP 125/59; PULSE 95; RESP 20; TEMP 36.4; O2SAT 94
[2021-12-19 07:39] LABS: Absolute Neutrophil Count 19.28 10^3/uL (1.2-6.7); Bands % 13
[2021-12-19 07:40] LABS: Diff Comment Manual Differential; RBC Morphology Normal
[2021-12-19] MEDS: Ascorbic Acid 500 MG TAB PO (08:44)
[2021-12-19] MEDS: traMADol 50 MG TAB PO ×2 (08:44→14:52)
[2021-12-19 08:45] VITALS: TEMP 36.4
[2021-12-19] MEDS: Omega-3 Fatty Acids 1000 MG CAP PO (08:45)
[2021-12-19] MEDS: Calcium 600mg/Vit D 200U TAB 1 TAB PO (08:45)
[2021-12-19] MEDS: Acetaminophen 325 MG TAB 650 MG PO ×4 (08:45→20:19)
[2021-12-19 09:02] LABS: Lab Add On Test DONE
[2021-12-19] MEDS: Lisinopril 20 MG TAB PO (09:39)
[2021-12-19] MEDS: Nystatin POWDER 60 GM JAR TP ×2 (09:39→20:20)
[2021-12-19] MEDS: Nystatin CREAM 15 GM TUBE TP ×2 (09:39→20:20)
[2021-12-19] MEDS: Vitamin E 400 UNITS CAP PO (09:39)
[2021-12-19] MEDS: Furosemide 40 MG TAB PO (09:39)
--- NOTE | 2021-12-19 09:39 | PHA.REVIEW ---
Pharmacy Admission Review - Admission Clinical Review (Last Updated 10/13/21 @ 08:41 by Jennifer Delgado NP) Rhabdomyolysis (Acute) Acute kidney injury (Acute) Cellulitis (Acute) Edema (Acute) Essential hypertension (Acute 08/04/13) amoxicillin Allergy (Intermediate, Verified 12/18/21 10:14) SKIN RASH cephalexin monohydrate [From Keflex] Allergy (Intermediate, Verified 12/18/21 10:14) Skin Rash clavulanic acid Allergy (Intermediate, Verified 12/18/21 10:14) SKIN RASH clindamycin Allergy (Intermediate, Verified 12/18/21 10:14) HIVES, ITCHING Resuscitation Status Full Code Height 5 ft 9 in Weight 161.025 kg - Renal Dosing Renal Dosing: BUN 28 mg/dL (7-18) H 12/19/21 06:20 Creatinine 1.3 mg/dL (0.70-1.30) 12/19/21 06:20 Medications needing adjustments: Reviewed (Crcl ~77.6 mL/min using adjusted body weight. Current meds okay.) - Anticoagulation Anticoagulation: Hgb 13.7 g/dL (13.5-17.5) 12/19/21 06:20 Hct 43.8 % (40.0-50.0) 12/19/21 06:20 Plt Count 184 10^3/uL (130-400) 12/19/21 06:20 Creatinine 1.3 mg/dL (0.70-1.30) 12/19/21 06:20 DVT Prophylaxis: Intervened (None currently ordered, will ask provider about possible need.) Therapeutic Anticoagulation: N/A - Opiate Usage Evaluate Pain Scale/Pains Meds: Intervened Scheduled Bowel Reg ordered if on Opiates?: No (will mention to provider) - Relevant Labs Sodium 134 mmol/L (136-145) L 12/19/21 06:20 Potassium 4.0 mmol/L (3.5-5.1) 12/19/21 06:20 Chloride 99 mmol/L (98-107) 12/19/21 06:20 Electrolytes, C-Reactive P, ESR: Reviewed - DM Control DM Control: Glucose 84 mg/dL (74-106) 12/19/21 06:20 Insulin Dosing: N/A - Heart Failure/[place] EF%, AIDA's, B-Blockers, Diuretics: N/A - BP Control BP Control: Blood Pressure 125/59 Blood Pressure 121/70 If elevated: Reviewed (BP has been elevated most of this admission so far, but this morning was a little low. Pt has lisinopril and furosemide ordered.) - Qtc Review If Elevated: N/A (QTc 454 on admission) - IV to PO Switch IV Medications: Reviewed - Home Meds Home Med List reviewed: Reviewed Relevent Home Meds Not ordered & why?: triamcinolone - Current meds Current Medication Order Review: Intervened (discontinued DI meds that had already been given) - Comments Comments/Follow Ups: Watch BP, labs, for culture results and for med changes. Antibiotic Activity - Pharmacy Antibiotic Review Pharmacy Antibiotic Activity: C/S review (One blood culture growing gram positive cocci, the other culture still pending. Vanco continues, trough to be drawn 12/21 pending improvements in renal function.)
[2021-12-19 10:12] LABS: C-Reactive Protein > 25.00 mg/dL (0.0-0.3); Creatine Kinase > 10000 U/L (39-308)
[2021-12-19 10:29] LABS: Procalcitonin 8.7 ng/mL
--- NOTE | 2021-12-19 11:05 | IN_ITS ---
Date of service: 12/19/21 Time of Service: 11:05 PT Notes Visit Reasons: Right Lower Extremity Physical Therapy Inpatient Initial Evaluation Date: 12/19/2021 Referring Doctor: Michela Lora NP PT Orders: PT CONSULT: Eval/treat Precautions: Fall. Standard. Activity as tolerated. Patient Profile/Admitting Diagnosis: Ezio is a 71-year-old male who presented to the ED on 12/18/2021 due to gradual worsening of right lower extremity, feeling of generalized weakness, fever, and recent fall. Patient is diagnosed with rhabdomyolysis, cellulitis, acute kidney injury, and edema. 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 Independent with all aspects of ADLs prior to admission. Still drives. Equipment Owned/DME: [facility], Subjective: Patient is highly doubtful that he will be able to anything for this consult today stating that it took 3-4 people to just help him sit up at edge of bed today. Complains of 10 out of 10 pain in both lower extremities at rest. Highly anxious about getting out of bed. Objective: General Observation: Supine in bed. Heels up in under bilateral legs. Steinberg catheter in place. IV access in left ureter. Obese. Mental Status: Alert and oriented as to person, place, time, and purpose. Able to pay attention, focus, and respond appropriately. Pain: 10/10 in B LE ROM: Right Upper Extremity: Shoulder Flexion WFL. Shoulder abduction WFL. Elbow flexion WFL. Wrist flexion WFL. Functional opening and closing of hand WFL. Left Upper Extremity: Shoulder Flexion WFL. Shoulder abduction WFL. Elbow flexion WFL. Wrist flexion WFL. Functional opening and closing of hand WFL. Right Lower Extremity: Hip flexion unable. Hip abduction unable. Knee flexion unable. Ankle dorsiflexion 10 degrees. Ankle plantarflexion 20 degrees. Left Lower Extremity: Hip flexion unable. Hip abduction unable. Knee flexion unable. Ankle dorsiflexion 10 degrees. Ankle plantarflexion 20 degrees. Strength: Right Upper Extremity: Shoulder flexors 4-/5. Shoulder abductors 4-/5. Elbow flexors 4-/5. Elbow extensors 4-/5. 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 Left Upper Extremity: Shoulder flexors 4-/5. Shoulder abductors 4-/5. Elbow flexors 4-/5. Elbow extensors 4-/5. 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 Right Lower Extremity: Hip flexors 1/5. Hip abductors 1/5. Knee flexors 1/5. Knee extensors 1/5. Ankle dorsiflexors 3-/5. Ankle plantarflexors 3-/5. Left Lower Extremity: Hip flexors 1/5. Hip abductors 1/5. Knee flexors 1/5. Knee extensors 1/5. Ankle dorsiflexors 3-/5. Ankle plantarflexors 3-/5. Sensation: Reports numbness in B LE Bed Mobility/Transfers: Rolling unable unable and unwilling to try at this time Supine to sit unable and unwilling to try at this time Sit to supine unable and unwilling to try at this time Sit to stand unable and unwilling to try at this time Stand to sit unable and unwilling to try at this time Bed to bedside commode unable and unwilling to try at this time Bedside commode to bed unable and unwilling to try at this time Bed to reclining chair unable and unwilling to try at this time Reclining chair to bed with unable and unwilling to try at this time Gait: Unable and unwilling to try at this time Balance: Static Sitting: unable and unwilling to try at this time Dynamic Sitting: unable and unwilling to try at this time Static Standing: unable and unwilling to try at this time Dynamic Standing: unable and unwilling to try at this time Special Tests: Mobility Limitations Standardized Measure [facility] AM-PAC 6 clicks Basic Mobility Inpatient Short Form: Raw Score: 6 CMS Score: 100% deficit Informed Consent/Education: Patient was instructed in purpose of PT consult and plan of care. Agreeable to proceed with established PT POC to achieve personal goals. Assessment: Patient is highly anxious about moving at time assessment. Recommend use of mechanical lift for essential transfers only at this time. Will reassess tomorrow morning with needed assistance form nursing staff. The numbness that patient is reporting may be more of weakness as he is able to feel pain in B LE. Patient presents with clinical signs and symptoms consistent with current/admitting diagnoses that have resulted to mobility limitations, gait instability, generalized weakness, and overall ADL decline as demonstrated by the following impairment level findings: 1. Decreased strength to B UE/LE major muscle groups 2. Impaired sitting/standing balance 3. Impaired activity tolerance 4. Limitation of joint range of motion in B LE joints 5. Obesity 6. B LE pain and swelling Impairments are contributing to the following functional limitations: 1. Decline in bed mobility skills 2. Decline in transfer skills 3. Inability to perform ambulation without assistive device and physical assistance 4. Increased completion time for mobility ADL performance 5. Increased risk for falls 6. Difficulty with managing steps 7. Inability to throve at home safely at this time Patient is assessed as a 18306 complexity based on the following: History: 71-year-old male with past medical history as indicated above Examination: Demonstrable impairment in strength, balance, and mobility level with underlying impairments and functional limitations as exhibited above as well as deficit score of 100% utilizing the [facility] Mobility Inpatient Short Form Presentation: Unstable Decision Makin high complexity Goals: Goals X1 week 1. Supine-Sit minimal assist 2. Sit-Supine minimal assist 3. Sit-Stand minimal assist 4. Stand-Sit minimal assist with bariatric front wheeled walker 5. Bed-Chair iminimal assist with bariatric front wheeled walker 6. Chair-Bed iminimal assist with bariatric front wheeled walker 7. Minimal assist with bariatric front wheeled walker for gait on level surface for at least 30 feet without report of pain nor dyspnea 8. Minimal assist with stair negotiation while holding onto B rails for at least 3 steps without report of pain nor dyspnea Plan of Care/Treatment Plan: 1-2x/day, 7 days/week x 1 week. Plan of care has been reviewed with the RN CLINICAL DOCUMENTATION providing the service under Physical Therapy direction. Initiate Physical Therapy intervention for pain management as needed, strengthening, bed mobility, transfers, gait, stairs, balance training, and use of assistive device. DISCHARGE RECOMMENDATIONS: [] Home with no services [] [] Home with services [specify] [] Home with outpatient PT [] [X] SNF for continued rehabilitation. Patient will benefit from nursing home facility placement for continued skilled physical therapy services in order to progress mobility level, strength, and balance in preparation for a safe discharge to home. [] Shelter Care [] [] SNF versus LTC based on ability to participate and progress [] TREATMENT CODE/TIME: 02066 x 23 minutes beginning at 11:05 AM. Thank you for the opportunity to participate in the care of this patient. Marisa Mcleod PT, DPT, CLT [facility] [place], [place]
--- NOTE | 2021-12-19 11:05 | PDOC.CMIN ---
- If Service Date Differs Date of service: 12/19/21 Time of Service: 11:05 Care Management Initial Assess REASON FOR HOSPITALIZATION:: Rhabdo and cellulitis PAST MEDICAL HISTORY/PAST SURGICAL HISTORY:: ll Active Problems (Updated 12/18/21 @ 17:23 by Michela Lora NP). Rhabdomyolysis (Acute). Acute kidney injury (Acute). Cellulitis (Acute). Edema (Acute). Tubulovillous adenoma (Acute ~10/2020). Colon polyps (Acute). Obesity (Acute 05/27/13). Low back pain (Chronic). tumor on back of spine-disability. surgery age 31 (1981). Essential hypertension (Acute 08/04/13). Medical History. History of alcoholism. quit 1989. History of tobacco use. quit in 1995. Surgical History . History of colonoscopy. PROCEDURES. EXCIS SPINAL CORD LESION, 1981. 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 PREVIOUS FUNCTIONAL STATUS/SOCIAL/FAMILY SUPPORTS:: Ezio lives alone in a mobile home in [place], [place] He has no children and no close relatives except for an elderly brother. Home does have a close friend (Vinod Vides [phone]) who lives behind him and who provides any support needed. Home has been using a walker for several years but has been able to remain indeoendent with ADLs until this illlness. CURRENT FUNCTIONAL STATUS:: Home was sitting up in bed when CM met with him. He was polite and agreeable to conversation. Home stated that he has been struggling at home recently. He is weaker than his baseline and feels that he will need to go to rehab for a short time before he will be able to return home. At his request, a referral was sent to [facility]. ADVANCE DIRECTIVES:: none on file Has patient been provided with info about the portal/API?: Yes Did the patient sign up for the portal?: No CODE STATUS:: Full Code INSURANCE COVERAGE / FINANCIAL ISSUES:: Medicare. Fin[employer] Assist 100 CURRENT HOME/COMMUNITY SERVICES/EQUIPMENT:: none currently PRIMARY CARE PHYSICIAN:: Jennifer Delgado POTENTIAL DISCHARGE NEEDS:: follow up with PCP and plan of care PATIENT/FAMILY EDUCATION NEEDS:: Review of discharge instructions, limitations, medications, activity, follow up plan, Ask Me Three PLAN:: Home will likely be transferred to a SNF for short term rehab prior to returning home. A referral was sent to [facility] at his request. He will follow up with the facility provider and plan of care and transport via w/c van. CM will continue to support Home and assess for ongoing discharge concerns.
--- NOTE | 2021-12-19 11:39 | W.PM.PROGNOT ---
Date of Service Date of service: 12/19/21 Time of Service: 11:39 Assessment and Plan Assessment and plan (1) Bacteremia: Status: Acute Assessment and plan: blood cultures positive for gram + cocci. continue vancomycin for now, day 2 repeat cultures in am to evaluate for clearance echo pending follow inflammatory markers (2) Rhabdomyolysis: Status: Acute Assessment and plan: CK remains greater than 10k continue IV fluids and watch kidney function closely (stable today) renal dosing avoid nephrotoxic drugs. (3) Cellulitis: Status: Acute Assessment and plan: continue vancomycin day 2, pharmacy dosing elevate RLE above level of the heart wound care consult pending pain management follow inflammatory markers periodically Qualifiers: Laterality: right Site of cellulitis of extremity: lower extremity (4) Acute kidney injury: Status: Acute Assessment and plan: stable continue IV fluids watch kidney function closely renal dosing (5) Essential hypertension: Status: Acute Assessment and plan: blood pressure controlled continue home medication while watching kidney function adjust as needed. (6) DVT prophylaxis: Status: Acute Assessment and plan: enoxaparin, weight based dosing per pharmacy recommendations (7) Discharge planning issues: Status: Acute Assessment and plan: anticipate skilled rehab when medically stable case management following discussed with Dr Roa Exam Const General: cooperative and ill appearing chronically Nutritional Appearance: obese morbidly obese Orientation: alert, awake and oriented x3 HENMT Head: normal to inspection, normocephalic and atraumatic Mouth: moist mucous membranes abnormal (dry) Chest Chest: normal inspection of the chest Resp Effort & Inspection: normal respiratory effort Auscultation: diminished lung sounds (bases) Cardio Rate: regular rate Rhythm: regular rhythm GI Inspection: large pannus and obesity Palpation: soft General: other (grant to gravity draining clear yellow medium urine) Skin Rashes: rashes noted (under breast, pannus and right lower extremity) and other (RLE: erythematous within skin markings, yellow crust, see NN) Neuro General: patient alert, patient awake, patient oriented x3 and no focal motor deficits Cognition: normal cognition Speech: speech normal Gait: other (only able to sit on edge of bed) Motor: muscle tone normal throughout Extrem General: edema Laterality: bilateral (right greater than left. ) Psych Mental Status: mental status grossly normal Speech and Movement: speech and movement normal Mood: congruent mood Affect: normal affect Attitude: cooperative Thought Process: normal Thought Content: normal Insight: insight good Judgment: judgment good Objective Last Vital Signs Temp 36.4 C L 12/19/21 08:45 Pulse 95 H 12/19/21 07:23 Resp 20 12/19/21 07:23 BP 125/59 L 12/19/21 07:23 Pulse Ox 94 12/19/21 07:23 Laboratory Results - last 24 hr 12/18/21 12/18/21 12/18/21 11:20 11:20 13:31 WBC 21.55 H RBC 5.55 Hgb 15.2 Hct 47.2 MCV 85.0 MCH 27.4 MCHC 32.2 RDW 14.4 H Plt Count 214 MPV 9.5 Immature Gran % 1.3 Neutrophils % 95.5 Band Neutrophils % Lymphocytes % 0.6 Monocytes % 2.3 Eosinophils % 0.0 Basophils % 0.3 Nucleated RBC % 0 Absolute Neutrophils 20.58 H Absolute Lymphocytes 0.13 L Absolute Monocytes 0.50 Absolute Eosinophils 0.00 Absolute Basophils 0.06 RBC Morphology Normal Sodium 130 L Potassium 4.3 Chloride 97 L Carbon Dioxide 25.3 Anion Gap 7.7 BUN 28 H Creatinine 1.4 H Estimated GFR/1.73 m2 49.82 Glucose 101 Calcium 9.1 Total Bilirubin 0.9 AST 568 H ALT 135 H Alkaline Phosphatase 70 Creatine Kinase C-Reactive Protein Total Protein 7.9 Albumin 3.1 L Procalcitonin COVID-19 Source Nasal/Nares SARS-CoV-2 (PCR) Negative Add-On Test Request 12/18/21 12/19/21 12/19/21 14:40 06:20 06:20 WBC 19.88 H RBC 5.02 Hgb 13.7 Hct 43.8 MCV 87.3 MCH 27.3 MCHC 31.3 L RDW 14.6 H Plt Count 184 MPV 9.6 Immature Gran % 0.0 Neutrophils % 84.0 Band Neutrophils % 13 Lymphocytes % 1.0 Monocytes % 2.0 Eosinophils % 0.0 Basophils % 0.0 Nucleated RBC % 0 Absolute Neutrophils 19.28 H Absolute Lymphocytes 0.20 L Absolute Monocytes 0.40 Absolute Eosinophils 0.00 Absolute Basophils 0.00 RBC Morphology Normal Sodium 134 L Potassium 4.0 Chloride 99 Carbon Dioxide 23.8 Anion Gap 11.2 H BUN 28 H Creatinine 1.3 Estimated GFR/1.73 m2 54.26 Glucose 84 Calcium 8.7 Total Bilirubin AST ALT Alkaline Phosphatase Creatine Kinase > 85434 H C-Reactive Protein Total Protein Albumin Procalcitonin COVID-19 Source SARS-CoV-2 (PCR) Add-On Test Request 12/19/21 12/19/21 12/19/21 06:20 06:20 06:20 WBC RBC Hgb Hct MCV MCH MCHC RDW Plt Count MPV Immature Gran % Neutrophils % Band Neutrophils % Lymphocytes % Monocytes % Eosinophils % Basophils % Nucleated RBC % Absolute Neutrophils Absolute Lymphocytes Absolute Monocytes Absolute Eosinophils Absolute Basophils RBC Morphology Sodium Potassium Chloride Carbon Dioxide Anion Gap BUN Creatinine Estimated GFR/1.73 m2 Glucose Calcium Total Bilirubin AST ALT Alkaline Phosphatase Creatine Kinase > 80590 H C-Reactive Protein > 25.00 H Total Protein Albumin Procalcitonin 8.7 COVID-19 Source SARS-CoV-2 (PCR) Add-On Test Request DONE
[2021-12-19] MEDS: Polyethylene Glycol 3350 17 GM PACKET PO (11:58)
[2021-12-19] MEDS: Docusate Sodium 100 MG CAP PO ×2 (12:00→20:19)
[2021-12-19] MEDS: Ketorolac 15 MG/ML VIAL IVP (13:31)
--- NOTE | 2021-12-19 14:15 | PTTR_ITS ---
Date of service: 12/19/21 Time of Service: 14:15 PT Notes Visit Reasons: Right Lower Extremity Physical Therapy Inpatient Treatment Note Date: 12/19/2021 Precautions: Fall. Standard. Activity as tolerated. Subjective: Patient continues to be highly doubtful that he will be able to anything but is willing to try. Complains of 10 out of 10 pain in both lower extremities at rest.? Highly anxious about movement and getting out of bed. Objective: General Observation: Supine in bed.? Heels up in under bilateral legs.? Steinberg catheter in place.? IV access in left ureter.? Obese. Mental Status: Alert and oriented as to person, place, time, and purpose. Able to pay attention, focus, and respond appropriately. Pain: 10/10 in B LE Sensation:? Reports numbness in B LE Bed Mobility/Transfers: Rolling moderate assist of 3 Supine to sit minimal assist of 3 to B LE and trunk Sit to supine moderate assist of 3 to B LE and trunk Sit to stand unable and unwilling to try at this time Stand to sit unable and unwilling to try at this time Bed to bedside commode unable and unwilling to try at this time Bedside commode to bed unable and unwilling to try at this time Bed to reclining chair unable and unwilling to try at this time Reclining chair to bed with unable and unwilling to try at this time Gait: Unable and unwilling to try at this time Balance: Static Sitting: unable and unwilling to try at this time Dynamic Sitting: unable and unwilling to try at this time Static Standing: unable and unwilling to try at this time Dynamic Standing: unable and unwilling to try at this time Assessment:? Fearful of falling again. Unable to activate B LE and trunk muscles despite increase in bed height and provision of assist of three nursing staff for safety for sit<>stand from edge of bed. Will attempt another mobility assessment in the morning to see if patient remains unable to put any weight on B LE. Will consult with hospitalist as needed. May defer to neurologist for further testing should weakness is significant nad is limiting mobility performance. Recommend use of mechanical lift for essential transfers only at this time.? Will reassess tomorrow morning with needed assistance form nursing staff.? The numbness that patient is reporting may be more of weakness as he is able to feel pain in B LE.?Will need OT evaluation for self care task performance. DISCHARGE RECOMMENDATIONS: [] ? Home with no services [] [] ? Home with services [specify] [] ? Home with outpatient PT [] [X] ? SNF for continued rehabilitation.? Patient will benefit from prison facility placement for continued skilled physical therapy services in order to progress mobility level, strength, and balance in preparation for a safe discharge to home. [] ? Detention Care [] [] ? SNF versus LTC based on ability to participate and progress [] TREATMENT CODE/TIME: 67371 x 30 minutes beginning at 14:15 PM.
[2021-12-19 14:59] VITALS: BP 112/83; PULSE 94; RESP 20; TEMP 37; O2SAT 94
--- NOTE | 2021-12-19 15:30 | DI.RAD_ITS ---
Exam(s) XR TIB/FIB RT EXAM: XR TIB/FIB RT CLINICAL HISTORY: pain, fall. TECHNIQUE: 2D digital imaging was performed. COMPARISON: No exams were available for comparison FINDINGS: There is diffuse subcutaneous edema in the calf. No radiopaque foreign body seen. There is no evidence of fracture of the tibia and fibula. Advanced narrowing of the medial compartment of the knee is noted. No osseous lesions. No radiographic evid ence of osteomyelitis IMPRESSION: DATA REPOSITORY: RADIATION DOSE DELIVERED:
[2021-12-19] MEDS: diphenhydrAMINE 50 MG/ML VIAL 25 MG IVP (17:48)
[2021-12-19] MEDS: Normal Saline Flush 10 ML SYR IVP (17:49)
[2021-12-19] MEDS: cefTRIAXone 2 GM/50 ML BAG IVPB (17:49)
[2021-12-19] MEDS: Enoxaparin 60 MG/0.6 ML SYR SC (20:19)
[2021-12-19 23:11] VITALS: BP 131/63; PULSE 95; RESP 22; TEMP 37.4; O2SAT 94
[2021-12-20] MEDS: traMADol 50 MG TAB PO ×2 (05:07→23:30)
[2021-12-20 07:17] LABS: HCT 40.2 % (40.0-50.0); HGB 12.8 g/dL (13.5-17.5); MCH 27.4 pg (27.0-33.0); MCHC 31.8 % (32.0-36.0); MCV 85.9 fL (80-95); MPV 10.1 fL (8.0-11.0); Nucleated RBC 0 %; Platelet Count 165 10^3/uL (130-400); RBC 4.68 10^6/uL (4.36-5.78); RDW 14.6 % (11.8-14.1); RDW-SD 46.3 fL; WBC 15.12 10^3/uL (4.4-10.8)
[2021-12-20 07:19] VITALS: BP 139/83; PULSE 93; RESP 20; TEMP 38.3; O2SAT 93
[2021-12-20 07:32] LABS: Absolute Lymphocyte Count 0.15 10^3/uL (1.2-3.4); Absolute Monocyte Count 0.45 10^3/uL (0.1-0.8); Absolute Neutrophil Count 14.21 10^3/uL (1.2-6.7); Atypical Lymphocytes % 1; Bands % 1
[2021-12-20 07:33] LABS: Diff Comment Manual Differential; RBC Morphology Normal
[2021-12-20 07:35] LABS: Anion Gap 8.5 mmol/L (3-11); BUN 27 mg/dL (7-18); CO2 22.5 mmol/L (21.0-32.0); Calcium 8.6 mg/dL (8.5-10.1); Chloride 97 mmol/L (98-107); Glucose 96 mg/dL (74-106); Potassium 4.1 mmol/L (3.5-5.1); Sodium 128 mmol/L (136-145)
[2021-12-20 07:36] LABS: Creatine Kinase 4519 U/L (39-308)
[2021-12-20] MEDS: Acetaminophen 325 MG TAB 650 MG PO ×4 (07:38→19:34)
[2021-12-20] MEDS: Calcium 600mg/Vit D 200U TAB 1 TAB PO (07:38)
[2021-12-20] MEDS: Ascorbic Acid 500 MG TAB PO (07:38)
[2021-12-20] MEDS: Lisinopril 20 MG TAB PO (07:38)
[2021-12-20] MEDS: Omega-3 Fatty Acids 1000 MG CAP PO (07:38)
[2021-12-20] MEDS: Vitamin E 400 UNITS CAP PO (07:38)
[2021-12-20] MEDS: Furosemide 40 MG TAB PO (07:38)
[2021-12-20] MEDS: Enoxaparin 60 MG/0.6 ML SYR SC ×2 (07:39→19:35)
[2021-12-20] MEDS: Polyethylene Glycol 3350 17 GM PACKET PO (07:39)
[2021-12-20] MEDS: Docusate Sodium 100 MG CAP PO ×2 (07:39→19:34)
[2021-12-20 08:45] VITALS: TEMP 37.9
[2021-12-20] MEDS: Ketorolac 15 MG/ML VIAL IVP (09:05)
[2021-12-20] MEDS: Normal Saline Flush 10 ML SYR IVP ×2 (09:06→16:31)
[2021-12-20] MEDS: Nystatin CREAM 15 GM TUBE TP ×2 (09:09→19:36)
[2021-12-20] MEDS: Nystatin POWDER 60 GM JAR TP ×2 (09:10→19:35)
--- NOTE | 2021-12-20 09:47 | CMPROGNOTE_ITS ---
- If Service Date Differs Date of service: 12/20/21 Time of Service: 09:47 Care Management Progress Note S/O: Home was sitting up in a chair when CM met with him. He was smiling and engaged easily with CM. Home shared that nursing staff needed to use a robert lift to get him up to the chair but that it felt good to be out of bed. A bariatric bed is being ordered as it is anticipated that Home will remain at [facility] for IVAB for at least a couple of weeks. He has one blood culture drawn on 12/18/21 that has grown Group B strep. The other one from that date remains negative. Additional blood cultures were drawn this morning when he spiked a fever of 38.3. The results of the above will help determine length of IVAB therapy needed. A: Home is a 71 year old man admitted on 12/18/21 with cellulitis and fever P:Home will likely be transferred to a SNF for short term rehab prior to returning home. He will likely need to remain at [facility] for IVAB before he can transfer to a SNF. A referral was sent to [facility] at his request. He will follow up with the facility provider and plan of care and transport via w/c van. CM will continue to support Home and assess for ongoing discharge concerns.
--- NOTE | 2021-12-20 10:11 | W.SURGCON ---
Date of service: 12/20/21 Time of Service: 10:12 Assessment and Plan Assessment and plan (1) Cellulitis: Status: Acute Assessment and plan: A// Erythema of R LE appears to be improving, from outline drawn by nsg staff. Moderate amount of pain when this provider attempted to evaluate the lateral and posterior portions of her R LE. Significant dry skin. No drainage or open area's noted. Please refer to images above. Hospitalist mentioned initial concern for compartment syndrome. Calf and lower leg is soft and when patient is distracted with conversation is not tender with palpation. Will request documentation from [facility] team to determine what treatment has helped in the past. Per a phone conversation while requesting documents, it was stated patient was treated with Unna Boots which were changed twice a week. Recommend that we restart this treatment to help with swelling and offer moisture to the dry skin. I do have concern that given the patient's body habitus and anatomy of his leg, the dressing may not stay in place. This dressing, if it holds up can be left in place for 1 week, however I anticipate this will need to be changed in a few days as the edema decreases. We will see the patient once a week for dressing change. If dressing changes are required more frequently, please having nsg staff contact one of our providers. Also recommend CircAid wraps for compression. These would be ideal for the patient and would be easier for him to apply independently compared to compression stockings. These can be purchased through [employer] or OTC through [employer]. These can be pricey $100+, I do not know how much insurance would cover. Incidentally noted a sebaceous cyst on patient's upper back. No signs or symptoms to suggest infection. This is actively draining. Does not require incision and drainage. Qualifiers: Laterality: right Site of cellulitis of extremity: lower extremity History of Present Illness Narrative: 71 y/o male with a history of morbid obesity, HTN, and low back pain is seen today per request of the hospital service for further evaluation of RLE cellulitis. The patient describes that he has been struggling with his RLE for several months, since 2020. He was previously being seen by [facility] team. In his care was transitioned to his PCP, for his LE was nearly healed. Patient states they were wrapping his LE, however he is unsure of what they were using. Patient also states compression stockings were ordered, however they were too small for him to apply following his wound care with [facility]. Patient describes having significant difficulty with ambulation, having to use a walker. He states that he tends to sit in a recliner chair at home. Today he states his LE's are tender and pain increases with movement of his legs. 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 Sister No problems noted. Sister No problems noted. Sister No problems noted. Social History (Updated 10/14/21 @ 10:32 by Dena Blanco) Smoking/Tobacco Use Status: Former Tobacco Use tobacco type: cigarettes Quit Date: 11/04/95 Second Hand Exposure: No Smoking risk assessment performed?: Yes Alcohol Intake: former Drug use: Never Substance use type: does not use Details: Pt states sober since 1995 Caregiver/Support person: No Do you need help understanding health information?: Never Pets and animals: No Sexually active: No Do you think of yourself as: straight/heterosexual Current gender identity: male What is your relationship status?: How often do you talk on the phone with friends or family?: twice per week How often do you get together with friends or relatives?: once per week How often do you attend mormonism or jewish services?: decline to answer Do you belong to any clubs or organized social groups?: no Panel score (0-1 are the most socially isolated patients): 1 What type of physical activity do you participate in: weight lifting Duration: 15-30 minutes/day Frequency: 5-6 times per week Dasha/Samaritan: No preference Special dasha needs: No Seatbelt use: always Helmet use: No Drive intox or ride w/intox furniture delivery driver: No Do you feel safe at home: Yes Victim of physical abuse: No Victim of emotional abuse: No Victim of sexual abuse: No Exam Const General: cooperative and comfortable Nutritional Appearance: obese Orientation: alert, awake and oriented x3 Resp Effort & Inspection: normal respiratory effort, no audible wheezes and no cough Skin Other: Incidentally noted a sebaceous cyst on the patient's upper right back, this is actively draining. No erythema, induration or swelling around this. R LE Lateral view R LE Anterior view R LE Medial view R LE Posterior view Extrem Right lower extremity: edema Other: RLE Mild erythema that appears to be reseeding from the outline drawn my nsg. Warmth and tenderness noted with palpation. Dry skin noted. Pressure ulcers that are scabbed over noted on dorsal aspect of 2nd and 3rd toes. Good dorsalis pedis pulses. Results Last Vital Signs Temp 37.9 C H 12/20/21 08:45 Pulse 93 H 12/20/21 07:19 Resp 20 12/20/21 07:19 BP 139/83 12/20/21 07:19 Pulse Ox 93 12/20/21 07:19 Labs Result diagrams: 12/20/21 06:50 12/20/21 06:50 Labs: Laboratory Results - last 24 hr 12/19/21 12/19/21 12/20/21 06:20 06:20 06:50 WBC RBC Hgb Hct MCV MCH MCHC RDW Plt Count MPV Immature Gran % Neutrophils % Band Neutrophils % Lymphocytes % Atypical Lymphs % Monocytes % Eosinophils % Basophils % Nucleated RBC % Absolute Neutrophils Absolute Lymphocytes Absolute Monocytes Absolute Eosinophils Absolute Basophils RBC Morphology Sodium 128 L Potassium 4.1 Chloride 97 L Carbon Dioxide 22.5 Anion Gap 8.5 BUN 27 H Creatinine 1.0 Estimated GFR/1.73 m2 >= 60.00 Glucose 96 Calcium 8.6 Creatine Kinase > 47187 H 4519 H C-Reactive Protein > 25.00 H Procalcitonin 8.7 12/20/21 06:50 WBC 15.12 H RBC 4.68 Hgb 12.8 L Hct 40.2 MCV 85.9 MCH 27.4 MCHC 31.8 L RDW 14.6 H Plt Count 165 MPV 10.1 Immature Gran % 0.0 Neutrophils % 93.0 Band Neutrophils % 1 Lymphocytes % 0.0 Atypical Lymphs % 1 Monocytes % 3.0 Eosinophils % 2.0 Basophils % 0.0 Nucleated RBC % 0 Absolute Neutrophils 14.21 H Absolute Lymphocytes 0.15 L Absolute Monocytes 0.45 Absolute Eosinophils 0.30 Absolute Basophils 0.00 RBC Morphology Normal Sodium Potassium Chloride Carbon Dioxide Anion Gap BUN Creatinine Estimated GFR/1.73 m2 Glucose Calcium Creatine Kinase C-Reactive Protein Procalcitonin
[2021-12-20 10:48] LABS: Hepatitis A Antibody IgM Negative (Negative); Hepatitis B Core Antibody Negative (Negative); Hepatitis B surface Ag Negative (Negative); Hepatitis C Ab w Rflx HCV PCR Negative (Negative)
--- NOTE | 2021-12-20 10:59 | W.PM.PROGNOT ---
Date of Service Date of service: 12/20/21 Time of Service: 10:59 Assessment and Plan Assessment and plan (1) Bacteremia: Status: Acute Assessment and plan: blood cultures grew group b strep repeat cultures drawn today and pending echo shows no evidence of vegetation. will likely need 2 weeks of IV antibiotics from clearance of blood cultures. continue ceftriaxone 2 gm daily day 2 (2) Rhabdomyolysis: Status: Acute Assessment and plan: CK improved from over 10k to 4500 today. creatinine normalized will continue fluid today, consider d/c tomorrow if labs continue to remain improved (3) Cellulitis: Status: Acute Assessment and plan: blood cultures growing group b strep. started on ceftriaxone 2 gm daily day 2 elevate RLE above level of the heart wound care consult pending pain management follow inflammatory markers regularly surgery consult with recommendations for unna boot Qualifiers: Site of cellulitis of extremity: lower extremity Laterality: right (4) Acute kidney injury: Status: Resolved Assessment and plan: continue IV fluids one more day recheck lab in am (5) Edema: Status: Acute Assessment and plan: takes lasix at home will continue watching kidney function closely (6) Essential hypertension: Status: Acute Assessment and plan: continue home meds for now and monitor kidney function closely. discussed with DR Roa (7) DVT prophylaxis: Status: Acute Assessment and plan: weight based enoxaparin per pharmacy recommendations (8) Discharge planning issues: Status: Acute Assessment and plan: anticipate 2 weeks of IV antibiotics, in addition to skilled rehabilitation facility prior to going home discussed with DR Roa Subjective Subjective Patient reports: still having pain, tolerating liquids well, tolerating a regular diet, voiding w/o difficulty (has indwelling grant catheter) and fever (max temp overnight 38.3) Exam Const General: cooperative and ill appearing chronically Nutritional Appearance: obese morbidly obese Orientation: alert, awake and oriented x3 HENMT Head: normal to inspection, normocephalic and atraumatic Mouth: moist mucous membranes abnormal (dry) Chest Chest: normal inspection of the chest Resp Effort & Inspection: normal respiratory effort Auscultation: diminished lung sounds (bases) Cardio Rate: regular rate Rhythm: regular rhythm GI Inspection: large pannus and obesity Palpation: soft General: other (grant to gravity draining clear yellow medium urine) Skin Rashes: rashes noted (under breast, pannus and right lower extremity) and other (RLE: erythematous within skin markings, yellow crust, see NN) Neuro General: patient alert, patient awake, patient oriented x3 and no focal motor deficits Cognition: normal cognition Speech: speech normal Gait: other (only able to sit on edge of bed) Motor: muscle tone normal throughout Extrem General: edema Laterality: bilateral (right greater than left. ) Psych Mental Status: mental status grossly normal Speech and Movement: speech and movement normal Mood: congruent mood Affect: normal affect Attitude: cooperative Thought Process: normal Thought Content: normal Insight: insight good Judgment: judgment good Objective Last Vital Signs Temp 37.9 C H 12/20/21 08:45 Pulse 93 H 12/20/21 07:19 Resp 20 12/20/21 07:19 BP 139/83 12/20/21 07:19 Pulse Ox 93 12/20/21 07:19 Laboratory Results - last 24 hr 12/20/21 12/20/21 06:50 06:50 WBC 15.12 H RBC 4.68 Hgb 12.8 L Hct 40.2 MCV 85.9 MCH 27.4 MCHC 31.8 L RDW 14.6 H Plt Count 165 MPV 10.1 Immature Gran % 0.0 Neutrophils % 93.0 Band Neutrophils % 1 Lymphocytes % 0.0 Atypical Lymphs % 1 Monocytes % 3.0 Eosinophils % 2.0 Basophils % 0.0 Nucleated RBC % 0 Absolute Neutrophils 14.21 H Absolute Lymphocytes 0.15 L Absolute Monocytes 0.45 Absolute Eosinophils 0.30 Absolute Basophils 0.00 RBC Morphology Normal Sodium 128 L Potassium 4.1 Chloride 97 L Carbon Dioxide 22.5 Anion Gap 8.5 BUN 27 H Creatinine 1.0 Estimated GFR/1.73 m2 >= 60.00 Glucose 96 Calcium 8.6 Creatine Kinase 4519 H
--- NOTE | 2021-12-20 14:16 | OTIE_ITS ---
Occupational Therapy Notes Inpatient Occupational Therapy Evaluation Date: 12/20/21 Referring Doctor:Michela Lora NP OT Orders: Non Urgent Precautions: Fall, standard, Full PATIENT PROFILE/ADMITTING DIAGNOSIS: Pt is a 71 year old male who was admitted for a dx of bactremia, Rhabdomyolysis, acute kidney injury, cellulitis, edema, tublovillous adenoma, colon polyps, obesity, low back pain, essential HTN. 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 History of colonoscopy PROCEDURES EXCIS SPINAL CORD LESION, 1981 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 Social History/Home Situation: Pt states that he lives alone and was fairly (I) at his baseline level of function. He reports that he had a steady decline his functional (I) recently and notes that the infection in his leg has contributed to the down fall of his functional (I). SUBJECTIVE: Pt was lying in bed when OT arrived. He states that he is doing well and notes that he is tired. Nursing notes that pt has a fever at this time. OBJECTIVE: General Observation: Pleasant and agreeable to OT Session, grant in place, IV in (R) UE Mental Status: A&Ox3 Pain: c/o pain in (B) LE ROM: RUE AROM WFL L UE AROM WFL STRENGTH: RUE 4/5 throughout LUE 4/5 throughout FUNCTIONAL MOBILITY/ADLS: BATHING Lying in bed with max (A) set up/clean up Bathing UE (I) face, (B) UE and abdomen on top surface, max (A) pannus area Bathing LE Hold for today due to infection and application of cream DRESSING lying in bed Dressing UE Min (*A) don and doffing hospital gown TOILETING Grant in place SPECIAL TESTS:] Daily Activity Limitations Standardized Measure [facility] AM -PAC ?6 clicks? Daily Activity Inpatient Short Form: Raw score:18 INFORMED CONSENT/EDUCATION: Pt instructed in purpose of OT Consult and plan of care. ASSESSMENT: Patient is a 71-year-old male referred to occupational therapy services with diagnosis of bactremia, Rhabdomyolysis, acute kidney injury, cellulitis, edema, tublovillous adenoma, colon polyps, obesity, low back pain, essential HTN. Patient presents with clinical signs and symptoms consistent with dx, as demonstrated by the following impairment level findings/functional limitations: Impairments in ADL/IADL and leisure activities, decreased functional activity tolerance, decreased strength, impairments in ADL/IADLs, decreased functional mobility required for ADL performance. AMPAC score 18 Patient is assessed as a Moderate 76378 complexity based on the following: History: see above Examination: see functional limitations as noted above Presentation: evolving Decision Making: AMPAC score 18 GOALS Goals x1 week 1. Grooming- sitting in chair (I) With oral hygiene with ideal technique 2. Dressing- sitting in chair (I) UE and mod (I) LE 3. Bathing- sitting in chair (I) UE and min (A) LE 4. Toileting on toilet (I) 5. Eating (I) PLAN OF CARE/TREATMENT PLAN: 1x/day, 5 days/ week x 1week Initiate Occupational Therapy Services for bathing, dressing, grooming, toileting, eating, transfer training. DISCHARGE RECOMMENDATIONS Based on pts current level of function, OT recommends that pt go to SNF for short term stay for increased functional activity tolerance and progressive (I) in his ADL/IADL routines. TREATMENT TIME/MINUTES/CODES 02044, 60806, 30 minutes (07:15) Carmen Romero OTR/[facility] [place], [place]
--- NOTE | 2021-12-20 15:10 | PTTR_ITS ---
Date of service: 12/20/21 Time of Service: 15:10 PT Notes Visit Reasons: Right Lower Extremity Physical Therapy Inpatient Treatment Note Date: 12/20/2021 Precautions: Fall. Standard. Activity as tolerated. Subjective: Patient continues to be highly doubtful that he will be able to anything but is willing to try. Complains of 10 out of 10 pain in both lower extremities at rest.? Highly anxious about movement and getting out of bed. Objective: General Observation: Supine in bed.? Heels up in under bilateral legs.? Steinberg catheter in place.? IV access in left ureter.? Obese. Mental Status: Alert and oriented as to person, place, time, and purpose. Able to pay attention, focus, and respond appropriately. Pain: 10/10 in B LE Sensation:? Reports numbness in B LE Bed Mobility/Transfers: Rolling moderate assist of 4 Supine to sit moderate assist of 4 to B LE and trunk Sit to supine moderate assist of 4 to B LE and trunk Sit to stand unable and unwilling to try at this time Stand to sit unable and unwilling to try at this time Bed to reclining chair Jordy lift only Reclining chair to bed Jordy lift only THERA ACT: Initiated activities to increase forward flexion of trunk, downward push of B UE to chair handles while activating thigh and trunk muscles to attem tp to stand up x 3. Patient was only able to lift gluteal area off edge of bed about 1-2 inches but is unable to execute cotninued UE and trunk muscle engagement to stand up.no arc of motion is achieved in B hips and knees. Able to dorsiflex to about 10-15 degrees in B sides. THERA EX: In the afternoon initiated B LE exercises to facilitate major muscle group engagement but Gait: Unable and unwilling to try at this time Balance: Static Sitting: Fair Static Standing: Poor Dynamic Standing: Unable and unwilling to try at this time Assessment: May benefit from neurologic consult for further assessment of B LE weakness. Mobility performance continues to be limited by anxiety, fearfulness of falling, significant weakness, and high BMI. Patient was able to engage BLE muscles enough to lean forward and left lower area all of that about 1 to 2 inches however is unable to concomitantly activate trunk and B UE muscles to push down on walker handle nor was he able to push down on STEDY lift front bar despite the assistance this PT and four other nursing staff.? Continues to recommend use of mechanical lift for essential transfers only at this time.? DISCHARGE RECOMMENDATIONS: [] ? Home with no services [] [] ? Home with services [specify] [] ? Home with outpatient PT [] [X] ? SNF for continued rehabilitation.? Patient will benefit from group home facility placement for continued skilled physical therapy services in order to progress mobility level, strength, and balance in preparation for a safe discharge to home. [] ? [facility] Paraprofessional Care [] [] ? SNF versus LTC based on ability to participate and progress [] TREATMENT CODE/TIME: Session 1??9753 0 x 40 minutes, 52038 x 16 minutes beginning at 10:29 AM. Session 2??[id number] 0 x 18 minutes beginning at 15:10 PM.
--- NOTE | 2021-12-20 15:28 | CHAPLAIN ---
Home up in a chair when I visited. I had remembered meeting his brother, Mahamed, when he was a patient here. The brother had served in the [employer], but [place] been [place]. 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 Home shared some personal history telling me about growing up on the [employer] in [place]. 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 Home said he fell at home, called a friend, but he wasn't able to help Home up so they called [facility]. Delivery Representative Jordyn, has told Home he'll be here for a few days. I will continue to visit.
[2021-12-20] MEDS: diphenhydrAMINE 50 MG/ML VIAL 25 MG IVP (16:30)
[2021-12-20] MEDS: cefTRIAXone 2 GM/50 ML BAG IVPB (16:31)
[2021-12-20] MEDS: Normal Saline 1,000 ML 125 ML IV (17:43)
[2021-12-20 19:39] VITALS: BP 149/68; PULSE 91; RESP 18; TEMP 37.4; O2SAT 96
[2021-12-20 23:34] VITALS: BP 150/72; PULSE 89; RESP 20; TEMP 36.7; O2SAT 94
[2021-12-21] MEDS: Normal Saline 1,000 ML 125 ML IV ×3 (01:11→15:47)
[2021-12-21] MEDS: traMADol 50 MG TAB PO ×3 (06:22→22:13)
[2021-12-21 07:06] LABS: ESR 108 mm/hr (0-20); HCT 37.3 % (40.0-50.0); HGB 12.4 g/dL (13.5-17.5); MCH 28.1 pg (27.0-33.0); MCHC 33.2 % (32.0-36.0); MCV 84.4 fL (80-95); Nucleated RBC 0 %; Platelet Count 173 10^3/uL (130-400); RBC 4.42 10^6/uL (4.36-5.78); RDW 14.6 % (11.8-14.1); RDW-SD 45.4 fL; WBC 19.38 10^3/uL (4.4-10.8)
[2021-12-21 07:37] LABS: Anion Gap 10.3 mmol/L (3-11); BUN 23 mg/dL (7-18); CO2 21.7 mmol/L (21.0-32.0); Calcium 8.3 mg/dL (8.5-10.1); Chloride 96 mmol/L (98-107); Glucose 87 mg/dL (74-106); Potassium 4.2 mmol/L (3.5-5.1); Sodium 128 mmol/L (136-145)
[2021-12-21 07:38] LABS: Creatine Kinase 2227 U/L (39-308)
[2021-12-21 07:42] VITALS: BP 106/64; PULSE 92; RESP 21; TEMP 38.3; O2SAT 92
[2021-12-21 07:45] LABS: Absolute Lymphocyte Count 0.39 10^3/uL (1.2-3.4); Absolute Monocyte Count 0.97 10^3/uL (0.1-0.8); Absolute Neutrophil Count 17.83 10^3/uL (1.2-6.7); Bands % 4
[2021-12-21 07:46] LABS: Diff Comment Manual Differential; Metamyelocytes % 1; RBC Morphology Normal
[2021-12-21 08:07] LABS: C-Reactive Protein > 25.00 mg/dL (0.0-0.3)
[2021-12-21] MEDS: Ascorbic Acid 500 MG TAB PO (08:10)
[2021-12-21] MEDS: Acetaminophen 325 MG TAB 650 MG PO ×4 (08:10→19:45)
[2021-12-21] MEDS: Docusate Sodium 100 MG CAP PO ×2 (08:11→19:45)
[2021-12-21] MEDS: Calcium 600mg/Vit D 200U TAB 1 TAB PO (08:11)
[2021-12-21] MEDS: Enoxaparin 60 MG/0.6 ML SYR SC ×2 (08:11→19:44)
[2021-12-21] MEDS: Omega-3 Fatty Acids 1000 MG CAP PO (08:12)
[2021-12-21] MEDS: Furosemide 40 MG TAB PO (08:12)
[2021-12-21] MEDS: Polyethylene Glycol 3350 17 GM PACKET PO (08:12)
[2021-12-21] MEDS: Lisinopril 20 MG TAB PO (08:12)
[2021-12-21] MEDS: Vitamin E 400 UNITS CAP PO (08:13)
[2021-12-21] MEDS: Ketorolac 15 MG/ML VIAL IVP ×2 (08:13→16:57)
--- NOTE | 2021-12-21 10:02 | CMPROGNOTE_ITS ---
- If Service Date Differs Date of service: 12/21/21 Time of Service: 10:02 Care Management Progress Note S/O: Home was sitting up in a chair when CM met with him. He again required the use of the robert lift to transfer to the chair. Home stated that he still feels very weak. He understands that he will need to remain at [facility] for at least 2 weeks for IVAB to treat the bacteremia identified on admission. Additional blood cultures were drawn yesterday and are negative to date. Home verbalized that [facility] remains his first choice for a rehab facility. A referral was sent 2 days ago but in a follow up phone call CM learned that no determination has been made yet. Additional referrals will be sent if declined at the [facility]. A: Home is a 71 year old man admitted on 12/18/21 with cellulitis and fever P:Home will likely be transferred to a SNF for short term rehab prior to returning home. He will likely need to remain at [facility] for IVAB before he can transfer to a SNF. A referral was sent to [facility] at his request. He will follow up with the facility provider and plan of care and transport via w/c van. CM will continue to support Home and assess for ongoing discharge concerns.
[2021-12-21] MEDS: Nystatin POWDER 60 GM JAR TP ×2 (11:03→19:48)
[2021-12-21] MEDS: Nystatin CREAM 15 GM TUBE TP ×2 (11:03→19:47)
--- NOTE | 2021-12-21 11:29 | W.NUTCONSULT ---
Date of service: 12/21/21 Time of Service: 11:29 Nutritional Consult ASSESSMENT: 71 year old male admitted after several falls at home with rhabdo, cellulitis, edema, bacteremia, GORGE with hx of morbid obesity and HTN. BMI of 55. Following Low sodium meal plan with excellent intake. Estimated Nutrient [id number] kcal, 120-125 g protein, 3000 ml fluid. NUTRITIONAL DIAGNOSIS: elevated protein need in view of class 3 obesity Class 3 obesity in view of BMI of 55 INTERVENTION: Will provide double protein servings at meals ( 80 g protein daily) recommend 1 oz liquid protein TID (total of 45 g protein) MONITORING AND EVALUATION: will monitor po intake, labs, weight. Time Spent in Nutritional Counseling and Treatment: 10
[2021-12-21 11:31] VITALS: TEMP 37.2
--- NOTE | 2021-12-21 12:21 | W.PM.PROGNOT ---
Date of Service Date of service: 12/21/21 Time of Service: : Assessment and Plan Assessment and plan (1) Bacteremia: Status: Acute Assessment and plan: white count climbing, erythema with no significant improvement, and now out of lines in some places. will broaden antibiotics to cefepime 2 gm [id number] blood cultures grew group b strep repeat cultures drawn today and pending echo shows no evidence of vegetation. will likely need 2 weeks of IV antibiotics from clearance of blood cultures. (2) Rhabdomyolysis: Status: Acute Assessment and plan: CK improved from over 10k to 2227 creatinine normalized will discontinue fluid (3) Cellulitis: Status: Acute Assessment and plan: blood cultures growing group b strep. started on ceftriaxone 2 gm daily day 2 elevate RLE above level of the heart wound care consult pending pain management follow inflammatory markers regularly surgery consult with recommendations for unna boot Qualifiers: Site of cellulitis of extremity: lower extremity Laterality: right (4) Acute kidney injury: Status: Resolved Assessment and plan: continue IV fluids one more day recheck lab in am (5) Edema: Status: Acute Assessment and plan: takes lasix at home will continue watching kidney function closely (6) Essential hypertension: Status: Acute Assessment and plan: continue home meds for now and monitor kidney function closely. (7) DVT prophylaxis: Status: Acute Assessment and plan: weight based enoxaparin per pharmacy recommendations (8) Discharge planning issues: Status: Acute Assessment and plan: anticipate 2 weeks of IV antibiotics, in addition to skilled rehabilitation facility prior to going home discussed with DR Roa Subjective Subjective Patient reports: pain is less, tolerating liquids well, tolerating a regular diet, voiding w/o difficulty (grant), shortness of breath and fever Interval history since last seen: white count elevating Exam Const General: cooperative and ill appearing chronically Nutritional Appearance: obese morbidly obese Orientation: alert, awake and oriented x3 HENMT Head: normal to inspection, normocephalic and atraumatic Mouth: moist mucous membranes abnormal (dry) Chest Chest: normal inspection of the chest Resp Effort & Inspection: normal respiratory effort Auscultation: diminished lung sounds (bases) Cardio Rate: regular rate Rhythm: regular rhythm GI Inspection: large pannus and obesity Palpation: soft General: other (grant to gravity draining clear yellow medium urine) Skin Rashes: rashes noted (under breast, pannus and right lower extremity) and other (RLE: erythematous within skin markings, yellow crust, see NN) Neuro General: patient alert, patient awake, patient oriented x3 and no focal motor deficits Cognition: normal cognition Speech: speech normal Gait: other (only able to sit on edge of bed) Motor: muscle tone normal throughout Extrem General: edema Laterality: bilateral (right greater than left. ) Psych Mental Status: mental status grossly normal Speech and Movement: speech and movement normal Mood: congruent mood Affect: normal affect Attitude: cooperative Thought Process: normal Thought Content: normal Insight: insight good Judgment: judgment good Objective Last Vital Signs Temp 37.2 C 12/21/21 11:31 Pulse 92 H 12/21/21 07:42 Resp 21 12/21/21 07:42 BP 106/64 12/21/21 07:42 Pulse Ox 92 12/21/21 07:42 Laboratory Results - last 24 hr 12/18/21 12/21/21 12/21/21 14:40 06:20 06:20 WBC RBC Hgb Hct MCV MCH MCHC RDW Plt Count MPV Immature Gran % Neutrophils % Band Neutrophils % Lymphocytes % Monocytes % Eosinophils % Basophils % Metamyelocytes % Nucleated RBC % Absolute Neutrophils Absolute Lymphocytes Absolute Monocytes Absolute Eosinophils Absolute Basophils RBC Morphology ESR 108 H Sodium 128 L Potassium 4.2 Chloride 96 L Carbon Dioxide 21.7 Anion Gap 10.3 BUN 23 H Creatinine 1.0 Estimated GFR/1.73 m2 >= 60.00 Glucose 87 Calcium 8.3 L Creatine Kinase 2227 H C-Reactive Protein > 25.00 H Hepatitis A IgM Ab Negative Hep Bs Antigen Negative Hep B Core Total Ab Negative Hepatitis C Antibody Negative 12/21/21 06:20 WBC 19.38 H RBC 4.42 Hgb 12.4 L Hct 37.3 L MCV 84.4 MCH 28.1 MCHC 33.2 RDW 14.6 H Plt Count 173 MPV 10.0 Immature Gran % 0.0 Neutrophils % 88.0 Band Neutrophils % 4 Lymphocytes % 2.0 Monocytes % 5.0 Eosinophils % 0.0 Basophils % 0.0 Metamyelocytes % 1 Nucleated RBC % 0 Absolute Neutrophils 17.83 H Absolute Lymphocytes 0.39 L Absolute Monocytes 0.97 H Absolute Eosinophils 0.00 Absolute Basophils 0.00 RBC Morphology Normal ESR Sodium Potassium Chloride Carbon Dioxide Anion Gap BUN Creatinine Estimated GFR/1.73 m2 Glucose Calcium Creatine Kinase C-Reactive Protein Hepatitis A IgM Ab Hep Bs Antigen Hep B Core Total Ab Hepatitis C Antibody
[2021-12-21] MEDS: Protein Nutritional Supplement 16 GM 1 OUNCE PACKET PO ×2 (12:26→16:57)
[2021-12-21 15:41] VITALS: BP 147/85; PULSE 76; RESP 20; TEMP 36.8; O2SAT 96
[2021-12-21] MEDS: cefTRIAXone 2 GM/50 ML BAG IVPB (15:45)
--- NOTE | 2021-12-21 15:58 | PTTR_ITS ---
Date of service: 12/21/21 Time of Service: 15:58 PT Notes Visit Reasons: Right Lower Extremity Physical Therapy Inpatient Treatment Note Date: 12/21/2021 Precautions: Fall. Standard. Activity as tolerated. Subjective: Agreeable to trying out exercises today. Objective: General Observation:? Steinberg catheter in place.? IV access in left UE.? High BMI. Mental Status: Alert and oriented as to person, place, time, and purpose. Able to pay attention, focus, and respond appropriately. Pain: 7-8 in B LE, 10/10 with movement Bed Mobility/Transfers: Rolling moderate assist of 4 Bed to chair via mechanical lift by nursing staff Chair to bed via mechanical lift by nursing staff THERA EX: Using 3 lb AW worked on increasing B UE shoulder and elbow flexors and extensors as well as shoulder horizontal abdunctors and adductors. While pulling on end of arm rest, patient was instructed to pull self forward into flexion x 5 reps for 2 sets with patient only able to move less than 10 degrees forward. AROM ex to B LE joints with minimal movement seen in B hips and knees (less than 25% of availbale range). In the afternoon, instructed patient on bridging exercises, trunk flexion, and core activation exercises. Gait: Unable Balance: Static Sitting: Fair Static Standing: Poor Dynamic Standing: Unable and unwilling to try at this time Assessment: Remains protective of B LE and limits undue movement. Highly anticipates pain. Mobility performance continues to be limited by anxiety, fearfulness of falling,? significant weakness, and high BMI.? May benefit from neurologic consult to identify significant rapid decline in mobility. Sessions today focused on seated level and bed level B UE/LE strengthening and range of motion exercises with emphasis on core engagement, trunk mobilization, and deep breathing exercises. DISCHARGE RECOMMENDATIONS: [] ? Home with no services [] [] ? Home with services [specify] [] ? Home with outpatient PT [] [X] ? SNF for continued rehabilitation.? Patient will benefit from skilled nurs ing facility placement for continued skilled physical therapy services in order to progress mobility level, strength, and balance in preparation for a safe discharge to home. [] ? Care Home Care [] [] ? SNF versus LTC based on ability to participate and progress [] TREATMENT CODE/TIME: Session 1??[id number] x 24 minutes beginning at 11:29 AM. Session 2??[id number] x 25 minutes beginning at 15:58 PM.
[2021-12-21] MEDS: CEFEPIME 2 GM in Normal Saline 100 ML IVPB (17:49)
[2021-12-21 23:26] VITALS: BP 153/68; PULSE 82; RESP 20; TEMP 36.8; O2SAT 93
--- NOTE | 2021-12-22 | DI.CT_ITS ---
Exam(s) CT LOWER EXTREMITY RT W EXAM: CT LOWER EXTREMITY RT W CLINICAL HISTORY: worsening cellulitis. TECHNIQUE: Imaging Protocol: Axial computed tomography images with coronal and sagittal reformatted images were created and reviewed. CONTRAST MATERIAL: Intravenous: Omnipaque 350. Contrast Volume: 100 ML COMPARISON: No exams were available for comparison FINDINGS: Bones: The osseous structures are intact. Tricompartment degenerative changes are seen in the knee. Bony alignment is satisfactory. No radiographic findings to suggest osteomyelitis are seen. There is a large joint effusion. There is a cystic collection posterior to the knee most consistent with a popliteal cyst. The cyst does show mildly thickened wall with some enhancement. Infection cannot be excluded. No lytic or sclerotic lesions are identified. Soft Tissues: There is subcutaneous edema seen throughout the leg. No focal fluid collection is seen to suggest an abscess. Findings are most suggestive of cellulitis. Enhancement: No other abnormal enhancement is seen in the leg. IMPRESSION: 1. Cellulitis of the lower leg. 2. Fluid collection posterior to the knee in location most consistent with a popliteal cyst. The cys t does show mildly thickened wall with some enhancement. Infection cannot be excluded. RADIATION DOSE DELIVERED: 710.55mGy.cm Total DLP 710.55mGy.cm Total DLP DATA REPOSITORY: All CT scans at this facility are submitted to the National Radiology Data Registry (NRDR) Dose Index Registry (DIR) with the [employer] (A[employer]). RADIATION OPTIMIZATION: All CT scans at this facility use at least one of these dose optimization te chniques: automated exposure control; mA and/or kV adjustment per patient size (includes targeted exa ms where dose is matched to clinical indication); or iterative reconstruction.
[2021-12-22] MEDS: Normal Saline Flush 10 ML SYR IVP ×3 (00:08→18:04)
[2021-12-22] MEDS: Ketorolac 15 MG/ML VIAL IVP ×3 (00:08→23:33)
[2021-12-22] MEDS: Normal Saline 1,000 ML 125 ML IV ×2 (00:11→09:23)
[2021-12-22] MEDS: CEFEPIME 2 GM in Normal Saline 100 ML IVPB ×3 (01:41→18:04)
[2021-12-22 07:02] LABS: Abs Immature Grans 1.77 10^3/uL (0.0-0.06); ESR 106 mm/hr (0-20); HCT 37.5 % (40.0-50.0); HGB 11.9 g/dL (13.5-17.5); MCH 27.5 pg (27.0-33.0); MCHC 31.7 % (32.0-36.0); MCV 86.6 fL (80-95); MPV 10.3 fL (8.0-11.0); Nucleated RBC 0 %; Platelet Count 164 10^3/uL (130-400); RBC 4.33 10^6/uL (4.36-5.78); RDW-SD 48.2 fL; WBC 17.13 10^3/uL (4.4-10.8)
[2021-12-22 07:29] LABS: ALT 96 U/L (16-63); AST 175 U/L (15-37); Albumin 1.6 g/dL (3.4-5.0); Alkaline Phosphatase 130 U/L (46-116); Anion Gap 6.4 mmol/L (3-11); BUN 31 mg/dL (7-18); Bilirubin, Total 0.5 mg/dL (0.2-1.0); CO2 24.6 mmol/L (21.0-32.0); Calcium 8.5 mg/dL (8.5-10.1); Chloride 97 mmol/L (98-107); Glucose 86 mg/dL (74-106); Potassium 4.4 mmol/L (3.5-5.1); Sodium 128 mmol/L (136-145); Total Protein 6.2 g/dL (6.4-8.2)
[2021-12-22 07:31] LABS: Creatine Kinase 1130 U/L (39-308)
[2021-12-22 07:40] LABS: C-Reactive Protein > 25.00 mg/dL (0.0-0.3)
[2021-12-22 07:49] LABS: Absolute Basophil Count 0.17 10^3/uL (0.0-0.2); Absolute Eosinophil Count 0.69 10^3/uL (0.0-0.7); Absolute Lymphocyte Count 0.17 10^3/uL (1.2-3.4); Absolute Monocyte Count 1.37 10^3/uL (0.1-0.8); Absolute Neutrophil Count 14.56 10^3/uL (1.2-6.7); Bands % 4; Metamyelocytes % 1
[2021-12-22 07:50] LABS: Diff Comment Manual Differential; Polychromasia Present
[2021-12-22 07:51] VITALS: BP 146/60; PULSE 85; RESP 20; TEMP 37.4; O2SAT 94
[2021-12-22] MEDS: Enoxaparin 60 MG/0.6 ML SYR SC ×2 (08:34→19:40)
[2021-12-22] MEDS: Acetaminophen 325 MG TAB 650 MG PO ×4 (08:34→19:40)
[2021-12-22] MEDS: Polyethylene Glycol 3350 17 GM PACKET PO (08:34)
[2021-12-22] MEDS: Protein Nutritional Supplement 16 GM 1 OUNCE PACKET PO ×3 (08:34→16:48)
[2021-12-22] MEDS: Vitamin E 400 UNITS CAP PO (08:34)
[2021-12-22] MEDS: Lisinopril 20 MG TAB PO (08:35)
[2021-12-22] MEDS: Furosemide 40 MG TAB PO (08:35)
[2021-12-22] MEDS: Docusate Sodium 100 MG CAP PO ×2 (08:35→19:40)
[2021-12-22] MEDS: Omega-3 Fatty Acids 1000 MG CAP PO (08:35)
[2021-12-22] MEDS: Calcium 600mg/Vit D 200U TAB 1 TAB PO (08:36)
[2021-12-22] MEDS: Ascorbic Acid 500 MG TAB PO (08:36)
[2021-12-22] MEDS: traMADol 50 MG TAB PO ×2 (08:36→21:23)
[2021-12-22] MEDS: Nystatin CREAM 15 GM TUBE TP ×2 (08:37→19:41)
[2021-12-22] MEDS: Nystatin POWDER 60 GM JAR TP ×2 (08:37→19:41)
--- NOTE | 2021-12-22 09:56 | PDOC.CMPRO ---
- If Service Date Differs Date of service: 12/22/21 Time of Service: 09:56 Care Management Progress Note S/O: Ezio was sitting up in his chair when CM met with him. He reported that he is not having a good day, and he is very uncomfortable. CM reviewed his plan, as he will likely require IV abx before going to SNF. He is hoping to get accepted at the [facility], referral pending. His bariatric bed was delivered today. His antibiotics were broadened, per report. CM will continue to follow. A: Home is a 71 year old man admitted on 12/18/21 with cellulitis and fever P:Home will likely be transferred to a SNF for short term rehab prior to returning home. He will likely need to remain at [facility] for IVAB before he can transfer to a SNF. A referral was sent to [facility] at his request. He will follow up with the facility provider and plan of care and transport via w/c van. CM will continue to support Home and assess for ongoing discharge concerns.
--- NOTE | 2021-12-22 10:23 | OTTR_ITS ---
Occupational Therapy Notes Occupational Therapy Inpatient Treatment Note Date: 12/22/21 PRECAUTIONS: Fall, standard, Full SUBJECTIVE: Pt states that he is not doing great but notes that he doesn't think he has a fever anymore. He is agreeable to OT session. OBJECTIVE: PAIN:c/o pain in (B) LE and abdomen FUNCTIONAL MOBILITY Rolling L/R: Max (A) *All transfers today performed with Jordy lift. BATHING: in bed, max (A) set up/clean up Upper Body: (I) face, mod (A) (B) UE, mod (A) abdomen, max (A) under pannus Lower Body: max (A) DRESSING: lying in bed, mod (A) Upper Extremity: Mod (A) [facility] gown Lower Extremity: NT TREATMENT CODES/TIME: [id number], 35 minutes (09:40) Carmen Romero OTR/L [facility]
--- NOTE | 2021-12-22 14:17 | W.PM.PROGNOT ---
Date of Service Date of service: 12/22/21 Time of Service: 14:17 Assessment and Plan Assessment and plan (1) Bacteremia: Start date: 12/22/21 Start time: 14:20 Status: Acute Assessment and plan: white count improved today at 17. erythema with no improvement outside the margins antibiotics were broadened to cefepime 2 gm q [address] w/wo blood cultures grew group b strep repeat cultures drawn, NGTD at this time echo shows no evidence of vegetation. will likely need 2 weeks of IV antibiotics from clearance of blood cultures. (2) Rhabdomyolysis: Start date: 12/22/21 Start time: 14:22 Status: Acute Assessment and plan: CK improved from over 10k to 1130 creatinine normalized Fluids dcd (3) Cellulitis: Start date: 12/22/21 Start time: 14:22 Status: Acute Assessment and plan: blood cultures growing group b strep. started on ceftriaxone 2 gm daily day 2 elevate RLE above level of the heart wound care consult pending pain management follow inflammatory markers regularly surgery consult with recommendations for unna boot Qualifiers: Laterality: right Site of cellulitis of extremity: lower extremity (4) Acute kidney injury: Start date: 12/22/21 Start time: 14:23 Status: Resolved Assessment and plan: IVF dcd today Labs improving, continue to use (5) Edema: Start date: 12/22/21 Start time: 14:24 Status: Acute Assessment and plan: takes lasix at home will continue watching kidney function closely (6) Essential hypertension: Start date: 12/22/21 Start time: 14:25 Status: Acute Assessment and plan: continue home meds for now and monitor kidney function closely. (7) DVT prophylaxis: Start date: 12/22/21 Start time: 14:25 Status: Acute Assessment and plan: weight based enoxaparin per pharmacy recommendations (8) Discharge planning issues: Start date: 12/22/21 Start time: 14:25 Status: Acute Assessment and plan: anticipate 2 weeks of IV antibiotics, in addition to skilled rehabilitation facility prior to going home discussed with DR Roa Subjective Subjective Patient reports: still having pain and other Interval history since last seen: Sitting up in chair. Eyrthema is outside the margins. CT ordered w/wo to r/o abscess. Pending. Exam Const General: cooperative and ill appearing chronically Nutritional Appearance: obese morbidly obese Orientation: alert, awake and oriented x3 HENMT Head: normal to inspection, normocephalic and atraumatic Mouth: moist mucous membranes Chest Chest: normal inspection of the chest Resp Effort & Inspection: normal respiratory effort Auscultation: diminished lung sounds (bases) Cardio Rate: regular rate Rhythm: regular rhythm GI Inspection: large pannus and obesity Palpation: soft General: other (grant to gravity draining clear yellow medium urine) Skin Rashes: rashes noted (under breast, pannus and right lower extremity) and other (RLE: erythematous within skin markings, yellow crust, see NN) Neuro General: patient alert, patient awake, patient oriented x3 and no focal motor deficits Cognition: normal cognition Speech: speech normal Gait: other (only able to sit on edge of bed) Motor: muscle tone normal throughout Extrem General: edema Laterality: bilateral (right greater than left. ) Psych Mental Status: mental status grossly normal Speech and Movement: speech and movement normal Mood: congruent mood Affect: normal affect Attitude: cooperative Thought Process: normal Thought Content: normal Insight: insight good Judgment: judgment good Objective Last Vital Signs Temp 37.4 C 12/22/21 07:51 Pulse 85 12/22/21 07:51 Resp 20 12/22/21 07:51 BP 146/60 H 12/22/21 07:51 Pulse Ox 94 12/22/21 07:51 Laboratory Results - last 24 hr 12/22/21 12/22/21 12/22/21 06:05 06:05 06:05 WBC 17.13 H RBC 4.33 L Hgb 11.9 L Hct 37.5 L MCV 86.6 MCH 27.5 MCHC 31.7 L RDW 15.0 H Plt Count 164 MPV 10.3 Immature Gran % See Differential Neutrophils % 81.0 Band Neutrophils % 4 Lymphocytes % 1.0 Monocytes % 8.0 Eosinophils % 4.0 Basophils % 1.0 Metamyelocytes % 1 Nucleated RBC % 0 Absolute Neutrophils 14.56 H Absolute Lymphocytes 0.17 L Absolute Monocytes 1.37 H Absolute Eosinophils 0.69 Absolute Basophils 0.17 RBC Morphology See Below Polychromasia Present ESR 106 H Sodium 128 L Potassium 4.4 Chloride 97 L Carbon Dioxide 24.6 Anion Gap 6.4 BUN 31 H Creatinine 1.0 Estimated GFR/1.73 m2 >= 60.00 Glucose 86 Calcium 8.5 Total Bilirubin 0.5 AST 175 H ALT 96 H Alkaline Phosphatase 130 H Creatine Kinase 1130 H C-Reactive Protein > 25.00 H Total Protein 6.2 L Albumin 1.6 L
[2021-12-22] MEDS: Omnipaque 350 MG/ML 100 ML BTL IJ (15:09)
[2021-12-22 15:31] VITALS: BP 166/78; PULSE 83; RESP 20; TEMP 37; O2SAT 94
--- NOTE | 2021-12-22 15:56 | PT.INNT ---
PT Notes Visit Reasons: Right Lower Extremity Pt refused his PT session today due to being tired and felt he wouldn't be able to do anything.
[2021-12-22 23:10] VITALS: BP 180/68; PULSE 78; RESP 20; TEMP 36.8; O2SAT 94
[2021-12-23 01:00] VITALS: BP 151/77
[2021-12-23] MEDS: Normal Saline Flush 10 ML SYR IVP ×4 (01:40→19:24)
[2021-12-23] MEDS: CEFEPIME 2 GM in Normal Saline 100 ML IVPB ×3 (01:41→18:15)
[2021-12-23] MEDS: traMADol 50 MG TAB PO (04:17)
[2021-12-23 06:51] VITALS: BP 185/65; PULSE 81; RESP 18; TEMP 36.6; O2SAT 94
[2021-12-23 07:10] LABS: HCT 36.8 % (40.0-50.0); HGB 11.9 g/dL (13.5-17.5); MCH 27.2 pg (27.0-33.0); MCHC 32.3 % (32.0-36.0); MPV 9.9 fL (8.0-11.0); Nucleated RBC 0 %; Platelet Count 204 10^3/uL (130-400); RBC 4.38 10^6/uL (4.36-5.78); RDW-SD 45.7 fL; WBC 20.02 10^3/uL (4.4-10.8)
[2021-12-23 07:17] LABS: BUN 32 mg/dL (7-18); CREATININE 0.9 mg/dL (0.70-1.30); Calcium 8.4 mg/dL (8.5-10.1); Chloride 98 mmol/L (98-107); Glucose 87 mg/dL (74-106); Magnesium 2.1 mg/dL (1.8-2.4); Potassium 4.5 mmol/L (3.5-5.1); Sodium 127 mmol/L (136-145)
[2021-12-23] MEDS: Ketorolac 15 MG/ML VIAL IVP ×2 (07:17→19:23)
[2021-12-23 07:27] LABS: Absolute Neutrophil Count 17.02 10^3/uL (1.2-6.7); Atypical Lymphocytes % 1; Bands % 8; Diff Comment Manual Differential; RBC Morphology Normal
[2021-12-23 07:28] LABS: Metamyelocytes % 3
[2021-12-23 07:39] LABS: C-Reactive Protein > 25.00 mg/dL (0.0-0.3)
--- NOTE | 2021-12-23 08:20 | PT.INTREAT ---
PT Notes Visit Reasons: Right Lower Extremity 12/23/2021 SUBJECTIVE: Notes feeling a little better than he did yesterday. OBJECTIVE: TRANSFERS/GAIT: N/A BED MOBILITY: Scoot up in bed- Max A x 2 THEREX: Supine LE muscle setting and ROM activities performed today as noted on flow sheet with pt noting less discomfort overall in his LE's. ASSESSMENT: Mechanical lift still required for all transfers. Did participate well in light LE muscle setting and ROM activities for me today. Pt will require slow progression of strengthening and mobility efforts. PLAN: Continue per POC. Treatment time: [id number] Calista Farooq PTA Clinic location: [facility] [place], [place]
[2021-12-23] MEDS: Enoxaparin 60 MG/0.6 ML SYR SC ×2 (08:32→19:24)
[2021-12-23] MEDS: Polyethylene Glycol 3350 17 GM PACKET PO (08:32)
[2021-12-23] MEDS: Nystatin CREAM 15 GM TUBE TP ×2 (08:32→19:29)
[2021-12-23] MEDS: Protein Nutritional Supplement 16 GM 1 OUNCE PACKET PO ×3 (08:32→16:52)
[2021-12-23] MEDS: Nystatin POWDER 60 GM JAR TP ×2 (08:33→19:28)
[2021-12-23] MEDS: Omega-3 Fatty Acids 1000 MG CAP PO (08:33)
[2021-12-23] MEDS: Furosemide 40 MG TAB PO (08:34)
[2021-12-23] MEDS: Acetaminophen 325 MG TAB 650 MG PO ×4 (08:34→19:23)
[2021-12-23] MEDS: Docusate Sodium 100 MG CAP PO ×2 (08:34→19:23)
[2021-12-23] MEDS: Calcium 600mg/Vit D 200U TAB 1 TAB PO (08:34)
[2021-12-23] MEDS: Lisinopril 20 MG TAB PO (08:34)
[2021-12-23] MEDS: Vitamin E 400 UNITS CAP PO (08:35)
[2021-12-23] MEDS: Ascorbic Acid 500 MG TAB PO (08:35)
--- NOTE | 2021-12-23 10:03 | W.PM.PROGNOT ---
Date of Service Date of service: 12/23/21 Time of Service: 10:51 Assessment and Plan Assessment and plan (1) Cellulitis: Status: Acute Assessment and plan: -Repeat CT reviewed, posterior right knee rim enhancing collection, need to rule out septic arthritis BRUCE, especially with + blood cultures, increasing CRP, ESR, WBC and worsening overlying erythema -Recommend urgent orthopedic consultation for aspiration, may need MRI defer to ortho -Continue IV antibiotics for GBS bacteremia -Not a surgical candidate here at [facility] per [employer], may need transfer to tertiary care center *Joint aspirated by orthopedic surgery, fluid with monosodium urate crystals consistent with gout, colchicine started, cx pending.* Qualifiers: Laterality: right Site of cellulitis of extremity: lower extremity (2) Rhabdomyolysis: Status: Acute Assessment and plan: -Elevated CK may also be a component of compartment syndrome, would continue to monitor right lower extremity closely as this may become more imminent if infected knee effusion ruptures into calf -Continue to trend CK daily (3) DVT prophylaxis: Status: Acute (4) Bacteremia: Status: Acute Assessment and plan: -On IV abx, concern for septic arthritis right knee, 2D echo negative for valvular vegetations study likely limited given massive body habitus (5) Acute kidney injury: Status: Resolved Assessment and plan: -Recommend gentle IVF, trending down, avoid excessive use of nephrotoxic medications and monitor renal function as he has gotten toradol, lasix and IV contrast -Defer to hospitalist (6) Edema: Status: Acute (7) Tubulovillous adenoma: Status: Acute (8) Obesity: Status: Acute Qualifiers: Obesity classification: unspecified obesity classification Obesity type: due to excess calories Serious obesity comorbidity presence: without serious comorbidity Qualified Code(s): E66.09 - Other obesity due to excess calories (9) Essential hypertension: Status: Acute Subjective Subjective Patient reports: no new complaints, pain is less (since joint was aspirated) and afebrile; denies nausea or vomiting Exam Narrative Exam Narrative: Patient reports increase in right knee discomfort this morning Const General: cooperative, comfortable, no acute distress and ill appearing chronically Nutritional Appearance: obese morbidly obese [facility] Head: normal to inspection, normocephalic and atraumatic Mouth: moist mucous membranes abnormal (dry) Chest Chest: normal inspection of the chest Resp Effort & Inspection: normal respiratory effort, able to speak in complete sentences, audible wheezes and no respiratory distress Cardio Rate: regular rate Rhythm: regular rhythm General: other (grant in place) Skin General skin exam: erythema (right posterior knee medial aspect), excoriation (left lower extremity), induration (right posterior knee) and turgor decreased Hair: total alopecia (lower extremities) Neuro General: patient alert, patient awake, patient oriented x3 and normal light touch, pain and propioception Cranial Nerves: CN's II-XI intact bilaterally Extrem General: abnormal ROM, edema Laterality: bilateral and pedal edema bilaterally Right lower extremity: No ROM limited (Unna boot dressing in place) Left lower extremity: No abnormal ROM Psych Mental Status: mental status grossly normal Speech and Movement: speech and movement normal Mood: congruent mood Affect: normal affect Attitude: cooperative Thought Process: normal Thought Content: normal Insight: insight good Judgment: judgment good Objective Last Vital Signs Temp 97.9 F 12/23/21 06:51 Pulse 81 12/23/21 06:51 Resp 18 12/23/21 06:51 BP 185/65 H 12/23/21 06:51 Pulse Ox 94 12/23/21 06:51 Laboratory Results - last 24 hr 12/23/21 12/23/21 07:00 07:00 WBC 20.02 H RBC 4.38 Hgb 11.9 L Hct 36.8 L MCV 84.0 MCH 27.2 MCHC 32.3 RDW 15.0 H Plt Count 204 MPV 9.9 Immature Gran % 0.0 Neutrophils % 77.0 Band Neutrophils % 8 Lymphocytes % 2.0 Atypical Lymphs % 1 Monocytes % 7.0 Eosinophils % 1.0 Basophils % 1.0 Metamyelocytes % 3 Nucleated RBC % 0 Absolute Neutrophils 17.02 H Absolute Lymphocytes 0.60 L Absolute Monocytes 1.40 H Absolute Eosinophils 0.20 Absolute Basophils 0.20 RBC Morphology Normal Sodium 127 L Potassium 4.5 Chloride 98 Carbon Dioxide 22.0 Anion Gap 7.0 BUN 32 H Creatinine 0.9 Estimated GFR/1.73 m2 >= 60.00 Glucose 87 Calcium 8.4 L Magnesium 2.1 C-Reactive Protein > 25.00 H
--- NOTE | 2021-12-23 11:27 | W.PM.PROGNOT ---
Date of Service Date of service: 12/23/21 Time of Service: 10:00 Assessment and Plan Assessment and plan (1) Bacteremia: Start date: 12/23/21 Start time: 10:00 Status: Acute Assessment and plan: Due to cellulitis grew Strep b on Cefepime and added dapto today. after wbc increased. no vegetations on echo CT as below repeat blood cx NGx 72 hours (2) Cellulitis: Start date: 12/23/21 Start time: 10:00 Status: Acute Assessment and plan: -CT reveals 1. Cellulitis of the lower leg. 2. Fluid collection posterior to the knee in location most consistent with a popliteal cyst.? The cyst does show mildly thickened wall with some enhancement.? Infection cannot be excluded.? Ortho and surgery consulted, -Continue IV antibiotics Add dapto as WBC went up to 20. Penicillin would be ideal but patient has allergy, though Wound care following patient as well Qualifiers: Laterality: right Site of cellulitis of extremity: lower extremity (3) Rhabdomyolysis: Start date: 12/23/21 Start time: 10:00 Status: Acute Assessment [place] [address], IVF dcd (4) Acute kidney injury: Start date: 12/23/21 Start time: 10:00 Status: Resolved Assessment and plan: continue to monitor (5) Edema: Start date: 12/23/21 Start time: 10:00 Status: Acute Assessment and plan: continue lasix (6) Essential hypertension: Start date: 12/23/21 Start time: 10:00 Status: Acute Assessment and plan: continue home meds, will add amlodipine for bp elevated in 150's systolically to 180's. continue to monitor. (7) DVT prophylaxis: Start date: 12/23/21 Start time: 10:00 Status: Acute Assessment and plan: weight based enoxaparin per pharmacy recommendations (8) Discharge planning issues: Start date: 12/23/21 Start time: 10:00 Status: Acute Assessment and plan: anticipate at least 2 weeks of IV antibiotics, in addition to skilled rehabilitation facility prior to going home discussed with dr. lincoln Subjective Subjective Patient reports: other Interval history since last seen: Patient leg is worseing beyond margins, CT revealing cyst and fluid collection posterior to the knee, infection can not be excluded. Surgical and ortho consult placed. Seen by wound. Will add dapto to regimen as WBC count has increased. no new complaints. Exam Const General: cooperative and ill appearing chronically Nutritional Appearance: obese morbidly obese Orientation: alert, awake and oriented x3 HENMT Head: normal to inspection, normocephalic and atraumatic Mouth: moist mucous membranes Chest Chest: normal inspection of the chest Resp Effort & Inspection: normal respiratory effort Auscultation: diminished lung sounds (bases) Cardio Rate: regular rate Rhythm: regular rhythm GI Inspection: large pannus and obesity Palpation: soft General: other (grant to gravity draining clear yellow medium urine) Skin Rashes: rashes noted (under breast, pannus and right lower extremity) and other (RLE: erythematous within skin markings, yellow crust, see NN) Wounds: wounds noted (multiple scabbed areas to body. Left knee) Other: multiple scabbed areas to right foot and left lower extremity. Stage 2 to coccyx Neuro General: patient alert, patient awake, patient oriented x3 and no focal motor deficits Cognition: normal cognition Speech: speech normal Gait: other (only able to sit on edge of bed) Motor: muscle tone normal throughout Extrem General: abnormal to inspection, edema Laterality: bilateral (right greater than left. ) and other (erythema) Right lower extremity: edema; No abnormal to inspection Psych Mental Status: mental status grossly normal Speech and Movement: speech and movement normal Mood: congruent mood Affect: normal affect Attitude: cooperative Thought Process: normal Thought Content: normal Insight: insight good Judgment: judgment good Objective Last Vital Signs Temp 36.6 C 12/23/21 06:51 Pulse 81 12/23/21 06:51 Resp 18 12/23/21 06:51 BP 185/65 H 12/23/21 06:51 Pulse Ox 94 12/23/21 06:51 Laboratory Results - last 24 hr 12/23/21 12/23/21 07:00 07:00 WBC 20.02 H RBC 4.38 Hgb 11.9 L Hct 36.8 L MCV 84.0 MCH 27.2 MCHC 32.3 RDW 15.0 H Plt Count 204 MPV 9.9 Immature Gran % 0.0 Neutrophils % 77.0 Band Neutrophils % 8 Lymphocytes % 2.0 Atypical Lymphs % 1 Monocytes % 7.0 Eosinophils % 1.0 Basophils % 1.0 Metamyelocytes % 3 Nucleated RBC % 0 Absolute Neutrophils 17.02 H Absolute Lymphocytes 0.60 L Absolute Monocytes 1.40 H Absolute Eosinophils 0.20 Absolute Basophils 0.20 RBC Morphology Normal Sodium 127 L Potassium 4.5 Chloride 98 Carbon Dioxide 22.0 Anion Gap 7.0 BUN 32 H Creatinine 0.9 Estimated GFR/1.73 m2 >= 60.00 Glucose 87 Calcium 8.4 L Magnesium 2.1 C-Reactive Protein > 25.00 H
[2021-12-23] MEDS: amLODIPine 5 MG TAB PO (13:31)
--- NOTE | 2021-12-23 13:41 | OCONE_ITS ---
History of Present Illness Narrative: Patient describes dealing with right leg infection for about a month. Has had issues with skin infections multiple parts of the body due to skin folds. Significant weight gain and immobility over the past 1 to 2 years. Multiple chronically painful joints. Both knees typically painful with weightbearing. Right knee pain has been worse since around 12/17/2021, for about 7 days duration. Patient feels significant pain with any motion about the knee. Relatively comfortable at rest. Symptoms have been stable for at least the past few days. Leg infections were treated as an outpatient at [facility] wound care. As an inpatient on the medical service with antibiotics and general surgery consultation. Consult Reason Right knee septic joint Assessment and Plan Assessment and plan (1) Septic arthritis of knee, right: Status: Acute Assessment and plan: 71-year-old male with probable subacute right knee septic arthritis. Chronic cellulitis lower extremity infection problems secondary to morbid obesity. Aspiration grossly positive. Case discussed with on-call nurse reinforcing steel worker, Olga Arreguin, who feels patient is too high risk for anesthesia given history of difficult airway for colonoscopy 10/25/20 and significant additional weight gain and worsening of morbid obesity since that procedure with current BMI 57. I will discuss with primary medical team options of continuing antibiotics through the weekend and re-evaluation with full [employer] group on Saturday morning versus transfer to tertiary care facility for definitive management sooner than later. Knowing that any surgery might be delayed due to his size, I attempted to remove all purulent material from his knee joint during aspiration As best I can tell, knee joint infection is subacute about 1 week in duration although it could be longer possibly up to 1 month. Patient remains hemodynamically stable. Imaging shows significant underlying knee arthritis. It is unlikely that there is significant articular cartilage to save from infection that requires true emergent intervention. Recommend continued wound care. Medical optimization. I am available to assist in any transfer or perform arthroscopic versus open right knee irrigation and debridement patient describes on Saturday on 12/25/2021 if that becomes an option. I also discussed with the patient the high likelihood of requiring subsequent additional procedures to fully eradicate his knee infection given duration of problem and history of poor wound healing. Review of Systems Narrative: Positive for subjective fever, numerous skin wounds, and multiple joints pain painful. Otherwise negative. 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) Essential hypertension (Acute 08/04/13) Medical History History of alcoholism quit 1989 History of tobacco use quit in 1995 Renal failure syndrome (05/27/13) Ulcer of other part of foot (10/03/95) Surgical History History of colonoscopy History of excision of mass PROCEDURES EXCIS SPINAL CORD LESION, 1981 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 Sister No problems noted. Sister No problems noted. Sister No problems noted. Social History Smoking/Tobacco Use Status: Former Tobacco Use tobacco type: cigarettes Quit Date: 11/04/95 Second Hand Exposure: No Smoking risk assessment performed?: Yes Alcohol Intake: former Drug use: Never Substance use type: does not use Details: Pt states sober since 1995 Caregiver/Support person: No Do you need help understanding health information?: Never Pets and animals: No Sexually active: No Do you think of yourself as: straight/heterosexual Current gender identity: male What is your relationship status?: How often do you talk on the phone with friends or family?: twice per week How often do you get together with friends or relatives?: once per week How often do you attend rastafarian or nondenominational services?: decline to answer Do you belong to any clubs or organized social groups?: no Panel score (0-1 are the most socially isolated patients): 1 What type of physical activity do you participate in: weight lifting Duration: 15-30 minutes/day Frequency: 5-6 times per week Dasha/Islam: No preference Special dasha needs: No Seatbelt use: always Helmet use: No Drive intox or ride w/intox team truck driver: No Do you feel safe at home: Yes Victim of physical abuse: No Victim of emotional abuse: No Victim of sexual abuse: No Exam Narrative Exam Narrative: Difficult to assess right knee due to morbid obesity. Significant popliteal rash and probably cellulitis. Foot ankle and majority of leg wrapped ongoing wound care. Not taken down. Right knee with significant tenderness globally. Probable large effusion although huge soft tissue envelope limits full determination. Significant discomfort and pain with any passive short arc range of motion. Unable to tolerate additional exam. Contralateral unaffected knee also with significant discomfort on examination including tenderness in short arc passive range of motion. Results Last Vital Signs Temp 97.9 F 12/23/21 06:51 Pulse 81 12/23/21 06:51 Resp 18 12/23/21 06:51 BP 185/65 H 12/23/21 06:51 Pulse Ox 94 12/23/21 06:51 Labs Result diagrams: 12/23/21 07:00 12/23/21 07:00 Labs: Laboratory Results - last 24 hr 12/23/21 12/23/21 07:00 07:00 WBC 20.02 H RBC 4.38 Hgb 11.9 L Hct 36.8 L MCV 84.0 MCH 27.2 MCHC 32.3 RDW 15.0 H Plt Count 204 MPV 9.9 Immature Gran % 0.0 Neutrophils % 77.0 Band Neutrophils % 8 Lymphocytes % 2.0 Atypical Lymphs % 1 Monocytes % 7.0 Eosinophils % 1.0 Basophils % 1.0 Metamyelocytes % 3 Nucleated RBC % 0 Absolute Neutrophils 17.02 H Absolute Lymphocytes 0.60 L Absolute Monocytes 1.40 H Absolute Eosinophils 0.20 Absolute Basophils 0.20 RBC Morphology Normal Sodium 127 L Potassium 4.5 Chloride 98 Carbon Dioxide 22.0 Anion Gap 7.0 BUN 32 H Creatinine 0.9 Estimated GFR/1.73 m2 >= 60.00 Glucose 87 Calcium 8.4 L Magnesium 2.1 C-Reactive Protein > 25.00 H Procedures Joint Aspiration/Injection Joint Asp./Inject. 1: Side of body: right Joint aspirated: knee Ultrasound guidance: No Skin prep: Chlorhexidine Needle size used: 18G (spinal) Fluid obtained: purulent Total fluid obtained (ml): 90 Patient tolerated procedure: well and no complications Additional comments: Superior lateral right knee aspiration done using sterile technique after obtaining informed verbal consent from the patient. Morphine used as IV pain medicine and topical cold spray locally. Significant purulent fluid removed. Gauze and paper tape applied over aspiration site. May be removed and replaced with Band-Aid tomorrow.
[2021-12-23] MEDS: MORPHine 2 MG/ML SYR IVP (14:38)
[2021-12-23 15:11] VITALS: BP 161/72; PULSE 80; RESP 20; TEMP 37; O2SAT 96
[2021-12-23 15:47] LABS: Clarity Cloudy; Mononuclear Cells 32 %; Nucleated Cells 29800 uL (0); Polynuclear Cells 68 %
[2021-12-23] MEDS: predniSONE 20 MG TAB 40 MG PO (16:52)
[2021-12-23] MEDS: Colchicine 0.6 MG TAB 1.2 MG PO (17:02)
[2021-12-23] MEDS: Colchicine 0.6 MG TAB PO (18:14)
--- NOTE | 2021-12-23 19:19 | NUR.NOTE ---
Nursing Note: Dr Chau called the unit after the needle aspiration, and diagnosed gout. He was started on Colchicine and received his first two doses. He was reminded he had not had a BM and was offered a suppository. He refused at this time and said maybe tomorrow.
--- NOTE | 2021-12-23 19:54 | WOUNDCONS ---
- If Service Date Differs Date of service: 12/23/21 Time of Service: 17:00 Wound Initial Evaluation Narrative: Patient is a 71 YOM. He is seen here for, Cellulitis, falls, Inability to ambulate, Rhabdomylosis. Besides the wound on the leg, patient was found to have wounds on the left elbow, coccyx, and had a needle aspiration of the right knee, which has led to a potential diagnosis of gout. Because of his allergies, finding the right antibiotic has been difficult, he was started on Daptomycin today, as well as Colchicine for the gout. Goals of treatment were discussed with the patient. He signs the consent for consultation. H&P, labs, allergies, and other pertinent information were reviewed. - Wound Right Lower Tib/Fib(lower leg) Wound Type: Other (Cellulitis) Wound General Appearance: Reddened, Unapproximated Wound Bed Greatest Portion: Dusky Red Wound Bed Lesser Portion: Shiny Wound Surrounding Tissue Appearance: Dark Red Wound Length: 57.5 cm Wound Width: 36.5 cm Wound Depth: 0.2 cm Wound Drainage Amount: Minimal Wound Drainage Odor: Pungent (Behind the right knee) Wound Drainage Description: Serous Wound Topical Solution/Irrigant: Antibiotic Irrigant Wound Debridement Method: Other (Debrisoft sponge) Wound Debridement Result: Healthy Tissue Revealed Wound Debridement Amount of Tissue Removed: Minimal Left Elbow Wound Type: Abrasion Wound General Appearance: Reddened, Bleeding, Unapproximated Wound Bed Greatest Portion: Red (Granulation) Wound Bed Lesser Portion: Pale [place] Wound Surrounding Tissue Appearance: Normal/Healthy Percent of Wound Bed Granulated/Red: 75 Wound Length: 5.9 cm Wound Width: 2.5 cm Wound Depth: 0.1 cm Wound Drainage Amount: Moderate Wound Drainage Odor: None/Absent Wound Drainage Description: Bloody Wound Topical Solution/Irrigant: Antibiotic Irrigant Wound Debridement Method: Gauze Wound Debridement Result: Healthy Tissue Revealed Wound Debridement Amount of Tissue Removed: Minimal Lumbar/Sacral Wound Type: Pressure Ulcer Pressure Ulcer Stage: II Wound General Appearance: Reddened, Unapproximated Wound Bed Greatest Portion: Red (Granulation) Wound Bed Lesser Portion: Pale [place] Wound Surrounding Tissue Appearance: [place] Percent of Wound Bed Granulated/Red: 90 Wound Length: 0.9 cm Wound Width: 0.3 cm Wound Depth: 0.2 cm Wound Drainage Amount: Minimal Wound Drainage Odor: None/Absent Wound Drainage Description: Bloody Wound Topical Solution/Irrigant: Saline Irrigant Wound Debridement Method: Gauze Wound Debridement Result: Healthy Tissue Revealed Wound Debridement Amount of Tissue Removed: Minimal - Circulation, Sensation, Motion Edema Degree: 2+ Peripheral Pulse Strength: Normal (reported to have needed doppler on admission, both pulses are strong and brisk.) Capillary Refill: Less than 3 seconds Sensation Description: Pain Skin Temperature: Warm Skin Color: Normal - Pain Pain Level: 8 Pain Description: Throbbing Pain Duration/Frequency: Intermittent, With Palpation Area behind right knee is open and macerated, and has a strong odor. Area cleaned well with Anasept spray, and patted dry. Patient has been non compliant with off loading pressure. This was emphasized to the patient that if he wanted to avoid further breakdown on the sacral area he must allow us to reposition him. Patient has areas of black spots on several of his toes, he would benefit from a podiatry consult. - Photo Photo: - Treatment/Dressing Change Topicals/Ointments: None Cleanse With: Anasept Dressing Types: Elastic Bandage, Mepilex w/Border, Unna Boot - Recomendation Recomendation:: Right lower leg. Cleanse with Anasept spray, and Debrisoft sponge, pat dry. Wrap leg with Unna boot from the toes to just behind the knee. Secure with Coban. Change dressing every 3 days or PRN if saturated or dislodged. Left elbow. Cleanse with Anasept spray, then pat dry. Cover with Mepilex border. Change every day ir PRN. Coccyx. Cleans with normal saline, then pat dry. Cover with Mepilex Sacral Change weekly or PRN. Offload pressure. Physcian/Nurse Practioner Notified: Yes (Yadira Sepulveda NP) Referrals: Podiatry Treatment Time - Time Total Time Spent with Patient: 90 minutes - Patient Will be Seen Weekly Treatment: daily - For: For:: 1 week
[2021-12-23 23:10] VITALS: BP 170/67; BP 170/80; PULSE 73; RESP 20; TEMP 36.6; O2SAT 94
[2021-12-24] MEDS: traMADol 50 MG TAB PO ×2 (01:26→08:45)
[2021-12-24] MEDS: CEFEPIME 2 GM in Normal Saline 100 ML IVPB ×3 (01:27→16:59)
[2021-12-24] MEDS: Normal Saline Flush 10 ML SYR IVP ×4 (01:27→17:00)
[2021-12-24] MEDS: Ketorolac 15 MG/ML VIAL IVP (05:48)
[2021-12-24 06:50] LABS: HCT 37.3 % (40.0-50.0); HGB 12.2 g/dL (13.5-17.5); MCH 27.2 pg (27.0-33.0); MCHC 32.7 % (32.0-36.0); MCV 83.3 fL (80-95); MPV 10.3 fL (8.0-11.0); Platelet Count 240 10^3/uL (130-400); RBC 4.48 10^6/uL (4.36-5.78); RDW 15.2 % (11.8-14.1); RDW-SD 45.9 fL
[2021-12-24 06:55] LABS: Anion Gap 8.5 mmol/L (3-11); BUN 34 mg/dL (7-18); CO2 22.5 mmol/L (21.0-32.0); CREATININE 0.8 mg/dL (0.70-1.30); Calcium 8.3 mg/dL (8.5-10.1); Chloride 99 mmol/L (98-107); Glucose 113 mg/dL (74-106); Potassium 4.7 mmol/L (3.5-5.1); Sodium 130 mmol/L (136-145)
[2021-12-24 07:33] LABS: Absolute Neutrophil Count 22.53 10^3/uL (1.2-6.7)
[2021-12-24 07:36] LABS: Absolute Monocyte Count 0.52 10^3/uL (0.1-0.8)
[2021-12-24 07:39] LABS: Metamyelocytes % 7; Nucleated RBC 1 %
[2021-12-24 07:40] LABS: Absolute Lymphocyte Count 0.78 10^3/uL (1.2-3.4); Myelocytes % 1
[2021-12-24 07:41] LABS: Diff Comment Manual Differential; RBC Morphology Normal
[2021-12-24 07:45] LABS: Bands % 9
[2021-12-24 07:47] VITALS: BP 138/67; PULSE 81; RESP 20; TEMP 36.6; O2SAT 95
[2021-12-24] MEDS: amLODIPine 5 MG TAB PO (08:00)
[2021-12-24] MEDS: Protein Nutritional Supplement 16 GM 1 OUNCE PACKET PO ×3 (08:00→16:03)
[2021-12-24] MEDS: Enoxaparin 60 MG/0.6 ML SYR SC ×2 (08:00→20:11)
[2021-12-24] MEDS: Polyethylene Glycol 3350 17 GM PACKET PO (08:00)
[2021-12-24] MEDS: Acetaminophen 325 MG TAB 650 MG PO ×4 (08:00→20:10)
[2021-12-24] MEDS: Nystatin POWDER 60 GM JAR TP ×2 (08:00→20:12)
[2021-12-24] MEDS: Calcium 600mg/Vit D 200U TAB 1 TAB PO (08:01)
[2021-12-24] MEDS: Furosemide 40 MG TAB PO (08:01)
[2021-12-24] MEDS: Omega-3 Fatty Acids 1000 MG CAP PO (08:01)
[2021-12-24] MEDS: predniSONE 20 MG TAB 40 MG PO (08:01)
[2021-12-24] MEDS: Lisinopril 20 MG TAB PO (08:01)
[2021-12-24] MEDS: Docusate Sodium 100 MG CAP PO (08:01)
[2021-12-24] MEDS: Ascorbic Acid 500 MG TAB PO (08:02)
[2021-12-24] MEDS: Colchicine 0.6 MG TAB PO ×2 (08:45→20:11)
[2021-12-24] MEDS: Nystatin CREAM 15 GM TUBE TP ×2 (09:18→20:11)
--- NOTE | 2021-12-24 09:23 | PT.INNT ---
PT Notes Visit Reasons: Right Lower Extremity 12/24/2021 Declined PT treatment today. Calista Farooq, [employer]ACHINE
--- NOTE | 2021-12-24 10:25 | W.PM.PROGNOT ---
Date of Service Date of service: 12/24/21 Time of Service: 10:00 Assessment and Plan Assessment and plan (1) Gouty arthritis of right knee: Start date: 12/24/21 Start time: 10:00 Status: Acute Assessment and plan: Aspiration of the knee done by Dr. Morales yesterday with expectation of septic arthritis however it appears to be gout. Started on colchicine and prednisone. Will continue until resolution. Start allopurniol in 2 weeks. At this time does not appear to be septic knee but still r/o until cx results come back Knee improved, no pain with palpation, erythema is gone, Erythema has receeded in margins from cellulitis (2) Septic arthritis of knee, right: Start date: 12/24/21 Start time: 10:00 Status: Suspected Assessment and plan: Suspected. Ortho was consulted, as above, still r/o will wait for cx resutls to completlely r/o, however with knee feeling better and pain resolved, likely this is as above. (3) Bacteremia: Start date: 12/24/21 Start time: 10:00 Status: Acute Assessment and plan: Due to cellulitis grew Strep b on Cefepime and added dapto today. WBC increased to 25 k however started on prednisone d/t gout no vegetations on echo CT as below repeat blood cx NGx 72 hours (4) Cellulitis: Start date: 12/24/21 Start time: 10:00 Status: Acute Assessment and plan: improving with in the margins. Erythema around knee likely d/t above. Qualifiers: Site of cellulitis of extremity: lower extremity Laterality: right (5) Rhabdomyolysis: Start date: 12/24/21 Start time: 10:00 Status: Acute Assessment and plan: Improved, checking cpk today (6) Acute kidney injury: Start date: 12/24/21 Start time: 10:00 Status: Resolved Assessment and plan: continue to monitor (7) Edema: Start date: 12/24/21 Start time: 10:00 Status: Chronic Assessment and plan: continue lasix (8) Essential hypertension: Start date: 12/23/21 Start time: 10:00 Status: Chronic Assessment and plan: continue home meds, normotensive this am with addition of amlodipine continue to monitor. (9) DVT prophylaxis: Start date: 12/24/21 Start time: 10:00 Status: Acute Assessment and plan: weight based enoxaparin per pharmacy recommendations (10) Discharge planning issues: Start date: 12/24/21 Start time: 10:00 Status: Acute Assessment and plan: anticipate at least 2 weeks of IV antibiotics, in addition to skilled rehabilitation facility prior to going home discussed with dr. lincoln Subjective Subjective Patient reports: feels better Interval history since last seen: Patient knee pain is much improved. Able to palpate knee with no pain. Dr. Morales yesterday aspirated large amount of bloody fluid from knee. Sent cx to r/o septic arthritis however at this time not showing any signs of sepsis however is revealing for gouty arthritis. Started on colchicine and predinsone for gout arthritis, already feeling better. Will continue to monitor. Exam Const General: cooperative and ill appearing chronically Nutritional Appearance: obese morbidly obese Orientation: alert, awake and oriented x3 HENMT Head: normal to inspection, normocephalic and atraumatic Mouth: moist mucous membranes Chest Chest: normal inspection of the chest Resp Effort & Inspection: normal respiratory effort Auscultation: diminished lung sounds (bases) Cardio Rate: regular rate Rhythm: regular rhythm GI Inspection: large pannus and obesity Palpation: soft General: other (grant to gravity draining clear yellow medium urine) Skin Rashes: rashes noted (under breast, pannus and right lower extremity) and other (RLE: erythematous within skin markings, yellow crust, see NN) Wounds: wounds noted (multiple scabbed areas to body. Left knee) Other: multiple scabbed areas to right foot and left lower extremity. Stage 2 to coccyx Neuro General: patient alert, patient awake, patient oriented x3 and no focal motor deficits Cognition: normal cognition Speech: speech normal Gait: other (only able to sit on edge of bed) Motor: muscle tone normal throughout Extrem General: abnormal to inspection, clubbing, cyanosis or edema noted, edema Laterality: bilateral (right greater than left. ) and other (erythema) Right lower extremity: edema; No abnormal to inspection Left lower extremity: edema Psych Mental Status: mental status grossly normal Speech and Movement: speech and movement normal Mood: congruent mood Affect: normal affect Attitude: cooperative Thought Process: normal Thought Content: normal Insight: insight good Judgment: judgment good Objective Last Vital Signs Temp 36.6 C 12/24/21 07:47 Pulse 81 12/24/21 07:47 Resp 20 12/24/21 07:47 BP 138/67 12/24/21 07:47 Pulse Ox 95 12/24/21 07:47 Laboratory Results - last 24 hr 12/23/21 12/23/21 12/24/21 14:45 14:45 05:45 WBC RBC Hgb Hct MCV MCH MCHC RDW Plt Count MPV Immature Gran % Neutrophils % Band Neutrophils % Lymphocytes % Monocytes % Eosinophils % Basophils % Metamyelocytes % Myelocytes % Nucleated RBC % Absolute Neutrophils Absolute Lymphocytes Absolute Monocytes Absolute Eosinophils Absolute Basophils RBC Morphology Sodium 130 L Potassium 4.7 Chloride 99 Carbon Dioxide 22.5 Anion Gap 8.5 BUN 34 H Creatinine 0.8 Estimated GFR/1.73 m2 >= 60.00 Glucose 113 H Calcium 8.3 L Fluid Source R Knee Fluid Color RED Fluid Clarity Cloudy Fluid WBC [id number] Fld Polynuclear WBCs % 68 Fluid Mononuclear Cell 32 Fluid Crystals See Comment Fluid Crystal Source R Knee 12/24/21 05:45 WBC 25.90 H* RBC 4.48 Hgb 12.2 L Hct 37.3 L MCV 83.3 MCH 27.2 MCHC 32.7 RDW 15.2 H Plt Count 240 MPV 10.3 Immature Gran % Neutrophils % 78.0 Band Neutrophils % 9 Lymphocytes % 3.0 Monocytes % 2.0 Eosinophils % 0.0 Basophils % 0.0 Metamyelocytes % 7 Myelocytes % 1 Nucleated RBC % 1 Absolute Neutrophils 22.53 H Absolute Lymphocytes 0.78 L Absolute Monocytes 0.52 Absolute Eosinophils 0.00 Absolute Basophils 0.00 RBC Morphology Normal Sodium Potassium Chloride Carbon Dioxide Anion Gap BUN Creatinine Estimated GFR/1.73 m2 Glucose Calcium Fluid Source Fluid Color Fluid Clarity Fluid WBC Fld Polynuclear WBCs % Fluid Mononuclear Cell Fluid Crystals Fluid Crystal Source
[2021-12-24 12:28] LABS: Lab Add On Test DONE
[2021-12-24 12:41] LABS: Creatine Kinase 284 U/L (39-308)
[2021-12-24 16:24] VITALS: BP 160/76; PULSE 61; RESP 20; TEMP 36.3; O2SAT 95
[2021-12-24 20:29] VITALS: BP 146/66; PULSE 85; RESP 20; TEMP 36.3; O2SAT 96
[2021-12-25] MEDS: traMADol 50 MG TAB PO ×4 (00:43→21:25)
[2021-12-25] MEDS: Normal Saline Flush 10 ML SYR IVP ×3 (02:10→20:03)
[2021-12-25] MEDS: CEFEPIME 2 GM in Normal Saline 100 ML IVPB ×3 (02:11→16:32)
[2021-12-25 06:52] LABS: Abs Immature Grans 3.36 10^3/uL (0.0-0.06); HCT 36.8 % (40.0-50.0); HGB 11.7 g/dL (13.5-17.5); MCHC 31.8 % (32.0-36.0); MPV 9.8 fL (8.0-11.0); Nucleated RBC 0 %; RBC 4.33 10^6/uL (4.36-5.78); RDW 15.3 % (11.8-14.1)
[2021-12-25 07:04] LABS: WBC 28.07 10^3/uL (4.4-10.8)
[2021-12-25 07:14] LABS: Anion Gap 4.8 mmol/L (3-11); BUN 39 mg/dL (7-18); CO2 25.2 mmol/L (21.0-32.0); CREATININE 0.9 mg/dL (0.70-1.30); Calcium 8.3 mg/dL (8.5-10.1); Chloride 100 mmol/L (98-107); Glucose 98 mg/dL (74-106); Potassium 5.2 mmol/L (3.5-5.1); Sodium 130 mmol/L (136-145)
[2021-12-25 07:31] LABS: Absolute Eosinophil Count 0.28 10^3/uL (0.0-0.7); Absolute Lymphocyte Count 1.96 10^3/uL (1.2-3.4); Absolute Monocyte Count 2.81 10^3/uL (0.1-0.8); Absolute Neutrophil Count 22.46 10^3/uL (1.2-6.7); Bands % 2; Diff Comment Manual Differential; Metamyelocytes % 2
[2021-12-25 07:32] LABS: Platelet Count 274 10^3/uL (130-400); RBC Morphology Normal
[2021-12-25] MEDS: Protein Nutritional Supplement 16 GM 1 OUNCE PACKET PO ×3 (08:07→16:32)
[2021-12-25] MEDS: Enoxaparin 60 MG/0.6 ML SYR SC ×2 (08:07→20:03)
[2021-12-25] MEDS: Polyethylene Glycol 3350 17 GM PACKET PO (08:07)
[2021-12-25] MEDS: Nystatin POWDER 60 GM JAR TP ×2 (08:08→20:03)
[2021-12-25] MEDS: Vitamin E 400 UNITS CAP PO (08:08)
[2021-12-25] MEDS: Colchicine 0.6 MG TAB PO ×2 (08:08→20:02)
[2021-12-25] MEDS: Lisinopril 20 MG TAB PO (08:08)
[2021-12-25] MEDS: Acetaminophen 325 MG TAB 650 MG PO ×4 (08:08→20:02)
[2021-12-25] MEDS: amLODIPine 5 MG TAB PO ×2 (08:08→14:06)
[2021-12-25] MEDS: Furosemide 40 MG TAB PO (08:09)
[2021-12-25] MEDS: Omega-3 Fatty Acids 1000 MG CAP PO (08:09)
[2021-12-25] MEDS: Ascorbic Acid 500 MG TAB PO (08:09)
[2021-12-25] MEDS: Nystatin CREAM 15 GM TUBE TP ×2 (08:09→20:03)
[2021-12-25] MEDS: Calcium 600mg/Vit D 200U TAB 1 TAB PO (08:09)
[2021-12-25] MEDS: Docusate Sodium 100 MG CAP PO ×2 (08:09→20:02)
[2021-12-25] MEDS: predniSONE 20 MG TAB 40 MG PO (08:09)
--- NOTE | 2021-12-25 09:32 | OT.INNT ---
Date of service: 12/25/21 Time of Service: 09:32 Occupational Therapy Notes 12/26/21 OT went in to see pt who was washed up with nursing prior to OT arrivals. OT will resume services tomorrow. Carmen Romero OTR/L
[2021-12-25 10:05] VITALS: BP 187/66; PULSE 76; RESP 20; TEMP 36.8; O2SAT 93
--- NOTE | 2021-12-25 10:09 | W.NUTRFU ---
Date of service: 12/25/21 Time of Service: 10:09 Nutrition Note NOTE: Ezio is following Low Sodium diet with excellent intake. Receives double protein portions at meals and supplemented with liquid protein TID to meet 100% of protein needs. Meeting macronutrient needs at this time. Not considered at nutritional risk. Will continue to follow. Time Spent in Nutritional Counseling and Treatment: 5
--- NOTE | 2021-12-25 10:50 | PDOC.CMPRO ---
- If Service Date Differs Date of service: 12/25/21 Time of Service: 10:50 Care Management Progress Note S/O: Ezio was sitting up in his chair when CM met with him. CM reviewed his plan, as he will likely require SWB 1 for IV antibiotic therapy, and then will require SNF for short term rehab. 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 Per report, he continues to meet acute inpatient criteria. CM will continue to follow. A: Home is a 71 year old man admitted on 12/18/21 with cellulitis and fever P:Home will likely be transferred to a SNF for short term rehab prior to returning home. He will likely need to remain at [facility] for IVAB before he can transfer to a SNF. A referral was sent to [facility] at his request. He will follow up with the facility provider and plan of care and transport via w/c van. CM will continue to support Home and assess for ongoing discharge concerns.
--- NOTE | 2021-12-25 13:25 | PGE_ITS ---
Date of Service Date of service: 12/25/21 Time of Service: 13:25 Assessment and Plan Assessment and plan (1) Gouty arthritis of right knee: Start date: 12/25/21 Start time: 13:31 Status: Acute Assessment and plan: improvement of the knee bilaterally especially on the right. No erythema or pain with palpation. States just chronic pain. Erythema has receded, margins are now clearing. Some pink behind the knee. Continue prednisone burst for a total of 6 days and continue colchicine for 2 w eeks then start on alopurinol. WBC elevated likely in setting of steroids He is currently on dapto and cefepime which appears clinically to be working despite rising leukocytosis. Will repeat CRP in am. Blood cultures no growth Knee aspiration anerobic and aerobic fluid no growth at this time. (2) Septic arthritis of knee, right: Start date: 12/24/21 Start time: 10:00 Status: Ruled-out Assessment and plan: as above r/o (3) Bacteremia: Start date: 12/25/21 Start time: 13:38 Status: Resolved Assessment and plan: Cleared bacteremia, on cefepime and dapto will need at least 2 weeks or longer of antiobiotics also as above Cleared cx on 12/20 afebrile, continue to monitor. (4) Cellulitis: Start date: 12/25/21 Start time: 13:39 Status: Acute Assessment and plan: improving with in the margins. now pink behind knee only. no erythema to knee or surrounding area Qualifiers: Site of cellulitis of extremity: lower extremity Laterality: right (5) Rhabdomyolysis: Start date: 12/25/21 Start time: 13:40 Status: Resolved Assessment and plan: resolved (6) Acute kidney injury: Start date: 12/25/21 Start time: 13:40 Status: Resolved Assessment and plan: continue to monitor (7) Edema: Start date: 12/24/21 Start time: 10:00 Status: Chronic Assessment and plan: continue lasix (8) Essential hypertension: Start date: 12/25/21 Start time: 13:41 Status: Chronic Assessment and plan: continue home meds, bp still in 150's to 180's will increase amlodipine to 10 mg. continue to monitor. (9) DVT prophylaxis: Start date: 12/25/21 Start time: 13:41 Status: Acute Assessment and plan: weight based enoxaparin per pharmacy recommendations (10) Discharge planning issues: Start date: 12/25/21 Start time: 13:41 Status: Acute Assessment and plan: anticipate at least 2 weeks of IV antibiotics, in addition to skilled rehabilitation facility prior to going home discussed with dr. lincoln Subjective Subjective Patient reports: feels better Interval history since last seen: Pain much improved, erythema is receding within the margins. RLE looking well. Fluid aerobic and anerobic cx no growth. Exam Const General: cooperative and ill appearing chronically Nutritional Appearance: obese morbidly obese Orientation: alert, awake and oriented x3 HENMT Head: normal to inspection, normocephalic and atraumatic Mouth: moist mucous membranes Chest Chest: normal inspection of the chest Resp Effort & Inspection: normal respiratory effort Auscultation: diminished lung sounds (bases) Cardio Rate: regular rate Rhythm: regular rhythm GI Inspection: large pannus and obesity Palpation: soft General: other (grant to gravity draining clear yellow medium urine) Skin Rashes: rashes noted (under breast, pannus and right lower extremity) and other (RLE: erythematous within skin markings, yellow crust, see NN) Wounds: wounds noted (multiple scabbed areas to body. Left knee) Other: multiple scabbed areas to right foot and left lower extremity. Stage 2 to coccyx Neuro General: patient alert, patient awake, patient oriented x3 and no focal motor deficits Cognition: normal cognition Speech: speech normal Gait: other (only able to sit on edge of bed) Motor: muscle tone normal throughout Extrem General: abnormal to inspection, clubbing, cyanosis or edema noted, edema and other (erythema) Right lower extremity: edema; No abnormal to inspection Left lower extremity: edema Other: erythema improving within the margins barely there now pink behind the knee, no pain to either knee with palpation Psych Mental Status: mental status grossly normal Speech and Movement: speech and movement normal Mood: congruent mood Affect: normal affect Attitude: cooperative Thought Process: normal Thought Content: normal Insight: insight good Judgment: judgment good Objective Last Vital Signs Temp 36.8 C 12/25/21 10:05 Pulse 76 12/25/21 10:05 Resp 20 12/25/21 10:05 BP 187/66 H 12/25/21 10:05 Pulse Ox 93 12/25/21 10:05 Laboratory Results - last 24 hr 12/23/21 12/25/21 12/25/21 14:45 06:31 06:31 WBC 28.07 H* RBC 4.33 L Hgb 11.7 L Hct 36.8 L MCV 85.0 MCH 27.0 MCHC 31.8 L RDW 15.3 H Plt Count 274 MPV 9.8 Immature Gran % See Differential Neutrophils % 78.0 Band Neutrophils % 2 Lymphocytes % 7.0 Monocytes % 10.0 Eosinophils % 1.0 Basophils % 0.0 Metamyelocytes % 2 Nucleated RBC % 0 Absolute Neutrophils 22.46 H Absolute Lymphocytes 1.96 Absolute Monocytes 2.81 H Absolute Eosinophils 0.28 Absolute Basophils 0.00 RBC Morphology Normal Sodium 130 L Potassium 5.2 H Chloride 100 Carbon Dioxide 25.2 Anion Gap 4.8 BUN 39 H Creatinine 0.9 Estimated GFR/1.73 m2 >= 60.00 Glucose 98 Calcium 8.3 L Path Cons Comment SEE COMMENT
--- NOTE | 2021-12-25 15:02 | W.PM.PROGNOT ---
Date of Service Date of service: 12/25/21 Time of Service: 15:02 Assessment and Plan Assessment and plan (1) Cellulitis: Status: Acute Assessment and plan: Gout of right knee- on treatment Cellulitis of right gaspar- has UNNA BOOT in place. Day #5. Will take down the UNNA BOOT on Saturday Qualifiers: Site of cellulitis of extremity: lower extremity Laterality: right (2) DVT prophylaxis: Status: Acute (3) Bacteremia: Status: Resolved (4) Acute kidney injury: Status: Resolved Assessment and plan: -Recommend gentle IVF, trending down, avoid excessive use of nephrotoxic medications and monitor renal function as he has gotten toradol, lasix and IV contrast -Defer to hospitalist (5) Edema: Status: Chronic (6) Tubulovillous adenoma: Status: Acute (7) Obesity: Status: Acute Qualifiers: Obesity type: due to excess calories Obesity classification: unspecified obesity classification Serious obesity comorbidity presence: without serious comorbidity Qualified Code(s): E66.09 - Other obesity due to excess calories (8) Essential hypertension: Status: Chronic Subjective Subjective Interval history since last seen: Mr. Nick is doing well. No complaints. HAs no pain after he was started on medication for the gout. Its day #5 from a UNNA BOOT dressing aplication to his right lower extremity Exam Extrem Other: Left lower extremity- Minimal edema in his foot and ankle since application of UNNA BOOT. 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 Objective Last Vital Signs Temp 98.2 F 12/25/21 10:05 Pulse 76 12/25/21 10:05 Resp 20 12/25/21 10:05 BP 187/66 H 12/25/21 10:05 Pulse Ox 93 12/25/21 10:05 Laboratory Results - last 24 hr 12/23/21 12/25/21 12/25/21 14:45 06:31 06:31 WBC 28.07 H* RBC 4.33 L Hgb 11.7 L Hct 36.8 L MCV 85.0 MCH 27.0 MCHC 31.8 L RDW 15.3 H Plt Count 274 MPV 9.8 Immature Gran % See Differential Neutrophils % 78.0 Band Neutrophils % 2 Lymphocytes % 7.0 Monocytes % 10.0 Eosinophils % 1.0 Basophils % 0.0 Metamyelocytes % 2 Nucleated RBC % 0 Absolute Neutrophils 22.46 H Absolute Lymphocytes 1.96 Absolute Monocytes 2.81 H Absolute Eosinophils 0.28 Absolute Basophils 0.00 RBC Morphology Normal Sodium 130 L Potassium 5.2 H Chloride 100 Carbon Dioxide 25.2 Anion Gap 4.8 BUN 39 H Creatinine 0.9 Estimated GFR/1.73 m2 >= 60.00 Glucose 98 Calcium 8.3 L Path Cons Comment SEE COMMENT
--- NOTE | 2021-12-25 15:41 | PT.INTREAT ---
PT Notes Visit Reasons: Right Lower Extremity Inpatient Physical Therapy Treatment Note [facility] Date: 12/25/21 SUBJECTIVE: Pt reports that he is feeling much better today. THEREX: Pt ocmpleted LE strengthening ther ex as per flow sheet and UE strengthening ther ex as per flow sheet while in bed. Pt was just placed back into bed by nursing. ASSESSMENT: Pt tolerated today's session well. Pt was happy with his progress with what he could accomplish today with exercises and is hopeful he can do more tomorrow. PLAN: Cont as per PT POC. TREATMENT CODE/TIME: TP 3:15-3:30 (15)
[2021-12-25 17:57] VITALS: BP 162/65; PULSE 67
[2021-12-25 19:56] VITALS: BP 167/63; PULSE 84; RESP 20; TEMP 36.8; O2SAT 95
[2021-12-25 23:30] VITALS: BP 165/60; PULSE 85; RESP 18; TEMP 36.6; O2SAT 96
[2021-12-26] MEDS: Normal Saline Flush 10 ML SYR IVP ×4 (02:07→20:25)
[2021-12-26] MEDS: CEFEPIME 2 GM in Normal Saline 100 ML IVPB ×3 (02:07→16:50)
[2021-12-26] MEDS: traMADol 50 MG TAB PO ×3 (03:35→23:36)
[2021-12-26 04:51] VITALS: BP 151/65; PULSE 80; RESP 20; TEMP 36.1; O2SAT 92
[2021-12-26] MEDS: MORPHine 2 MG/ML SYR IVP (05:44)
[2021-12-26 06:55] LABS: HCT 34.4 % (40.0-50.0); HGB 11.3 g/dL (13.5-17.5); Immature Grans % 12.3; MCH 27.8 pg (27.0-33.0); MCHC 32.8 % (32.0-36.0); MCV 84.5 fL (80-95); MPV 9.8 fL (8.0-11.0); Nucleated RBC 0 %; Platelet Count 301 10^3/uL (130-400); RBC 4.07 10^6/uL (4.36-5.78); RDW 15.7 % (11.8-14.1); RDW-SD 47.7 fL
[2021-12-26 07:04] LABS: Anion Gap 8.3 mmol/L (3-11); BUN 40 mg/dL (7-18); C-Reactive Protein 11.31 mg/dL (0.0-0.3); CO2 25.7 mmol/L (21.0-32.0); CREATININE 0.7 mg/dL (0.70-1.30); Calcium 8.1 mg/dL (8.5-10.1); Chloride 98 mmol/L (98-107); Glucose 101 mg/dL (74-106); Potassium 4.7 mmol/L (3.5-5.1); Sodium 132 mmol/L (136-145)
[2021-12-26 07:22] LABS: WBC 26.61 10^3/uL (4.4-10.8)
[2021-12-26 07:36] LABS: Absolute Eosinophil Count 0.27 10^3/uL (0.0-0.7); Absolute Lymphocyte Count 0.53 10^3/uL (1.2-3.4); Absolute Monocyte Count 1.86 10^3/uL (0.1-0.8); Absolute Neutrophil Count 22.88 10^3/uL (1.2-6.7); Bands % 7; Diff Comment Manual Differential; Metamyelocytes % 4; RBC Morphology Normal
[2021-12-26] MEDS: Polyethylene Glycol 3350 17 GM PACKET PO (08:03)
[2021-12-26 08:04] VITALS: BP 176/70; PULSE 79; RESP 20; TEMP 36.8; O2SAT 92
[2021-12-26] MEDS: Vitamin E 400 UNITS CAP PO (08:04)
[2021-12-26] MEDS: Acetaminophen 325 MG TAB 650 MG PO ×4 (08:04→20:23)
[2021-12-26] MEDS: Docusate Sodium 100 MG CAP PO ×2 (08:04→20:23)
[2021-12-26] MEDS: predniSONE 20 MG TAB 40 MG PO (08:04)
[2021-12-26] MEDS: Omega-3 Fatty Acids 1000 MG CAP PO (08:04)
[2021-12-26] MEDS: Lisinopril 20 MG TAB PO (08:04)
[2021-12-26] MEDS: Colchicine 0.6 MG TAB PO ×2 (08:04→20:23)
[2021-12-26] MEDS: amLODIPine 10 MG TAB PO (08:05)
[2021-12-26] MEDS: Calcium 600mg/Vit D 200U TAB 1 TAB PO (08:05)
[2021-12-26] MEDS: Furosemide 40 MG TAB PO (08:05)
[2021-12-26] MEDS: Enoxaparin 60 MG/0.6 ML SYR SC ×2 (08:05→20:23)
[2021-12-26] MEDS: Protein Nutritional Supplement 16 GM 1 OUNCE PACKET PO ×3 (08:05→16:50)
[2021-12-26] MEDS: Nystatin POWDER 60 GM JAR TP ×2 (08:06→20:24)
[2021-12-26] MEDS: Nystatin CREAM 15 GM TUBE TP ×2 (08:06→20:24)
[2021-12-26] MEDS: Ascorbic Acid 500 MG TAB PO (08:54)
--- NOTE | 2021-12-26 09:30 | OT.INTREAT ---
Date of service: 12/26/21 Time of Service: 09:05 Occupational Therapy Notes Occupational Therapy Inpatient Treatment Note Date: 12/26/21 PRECAUTIONS: Fall, standard, full SUBJECTIVE: Pt states that he is doing ok. He is agreeable to OT session. OBJECTIVE: PAIN:c/o pain in (B) UE with ROM And (B) LE with movement of legs. BATHING: lying in bed with max (A) set up/clean up Upper Body: (I) face, top of abdomen and underarms/arms, pt is max (A) for pannus area performed by nursing Lower Body: max (A) (L) LE, (R) LE wrapped DRESSING: lying in bed Upper Extremity: min (A) [facility] Lower Extremity: NT TREATMENT CODES/TIME: [id number], 25 minutes (09:05) Carmen Romero OTR/L [facility]
--- NOTE | 2021-12-26 10:05 | PDOC.CMPRO ---
- If Service Date Differs Date of service: 12/26/21 Time of Service: 10:05 Care Management Progress Note S/O: Ezio was sitting up in his chair when CM met with him. He reported that he is feeling good today. He worked with PT, and he stated that he was unable to stand on his feet due to the pain. He is currently a robert lift in and out of bed. CM assisted Home in applying for [facility] today, and submitted the application to [facility]. Per report, he remains acute at this time. Once he is medically stable he will transition to [facility] for continued IV antibiotics. CM will continue to follow. A: Home is a 71 year old man admitted on 12/18/21 with cellulitis and fever P:Home will likely be transferred to a SNF for short term rehab prior to returning home. He will likely need to remain at [facility] for IVAB before he can transfer to a SNF. A referral was sent to [facility] at his request. He will follow up with the facility provider and plan of care and transport via w/c van. CM will continue to support Home and assess for ongoing discharge concerns.
--- NOTE | 2021-12-26 11:44 | PT.INTREAT ---
PT Notes Visit Reasons: Right Lower Extremity 12/26/2021 SUBJECTIVE: States he want to stand but having trouble due to pain in the R LE. Indicates 9/10 pain with attempt to stand. OBJECTIVE: TRANSFERS Supine to sit: Max A x 4 Sit to stand attempt: 4 assist, FWW, unable Jordy lift: Bed to chair ASSESSMENT: May try to pre-medicate for pain for better participation with sit to stand transfer. Continues to require significant amount of assist for all transfers and bed mobility tasks. Continue with Jordy lift at this time. Unfortunately Stedy lift is not a good fit for him. PLAN: continue with LE strengthening, transfer training. Pre-medicate for pain. Treatment time: 20 minutes [id number] Calista Farooq PTA Clinic location: [facility] [place], [place]
--- NOTE | 2021-12-26 14:32 | PT.INTREAT ---
PT Notes Visit Reasons: Right Lower Extremity 12/26/2021 SUBJECTIVE: Pt stating his R leg is just not ready for him to stand on yet. He continues to have LE pain R greater than L OBJECTIVE: TRANSFERS/GAIT: N/A THEREX: Performed in seated position including UE/LE strengthening. Encouraged pt to lower his legs in the chair and work on activating his quads every hour. ASSESSMENT: Progressing very slowly. Continues to have discomfort in the R LE limiting his ability to stand and weight bear. PLAN: Continue per POC progressing to standing as he is able to tolerate. Treatment time: 15 minutes [id number] Calista Farooq PTA Clinic location: [facility] [place], [place]
[2021-12-26 15:18] VITALS: BP 156/65; PULSE 88; RESP 21; TEMP 36.7; O2SAT 96
[2021-12-26 22:35] VITALS: BP 180/75; PULSE 87; RESP 21; TEMP 36.7; O2SAT 93
[2021-12-27] MEDS: CEFEPIME 2 GM in Normal Saline 100 ML IVPB ×3 (02:37→17:22)
[2021-12-27] MEDS: Normal Saline Flush 10 ML SYR IVP ×3 (02:37→17:22)
[2021-12-27 05:51] VITALS: BP 173/51; PULSE 85; RESP 19; TEMP 37.3; O2SAT 92
[2021-12-27] MEDS: traMADol 50 MG TAB PO ×3 (06:00→20:42)
[2021-12-27 06:33] LABS: HCT 33.2 % (40.0-50.0); HGB 10.6 g/dL (13.5-17.5); MCH 27.1 pg (27.0-33.0); MCHC 31.9 % (32.0-36.0); MCV 84.9 fL (80-95); MPV 9.6 fL (8.0-11.0); Nucleated RBC 0 %; Platelet Count 315 10^3/uL (130-400); RBC 3.91 10^6/uL (4.36-5.78); RDW 15.3 % (11.8-14.1); RDW-SD 47.1 fL; WBC 24.57 10^3/uL (4.4-10.8)
[2021-12-27 06:48] LABS: Anion Gap 7.8 mmol/L (3-11); BUN 40 mg/dL (7-18); CO2 24.2 mmol/L (21.0-32.0); CREATININE 0.7 mg/dL (0.70-1.30); Chloride 99 mmol/L (98-107); Glucose 112 mg/dL (74-106); Potassium 4.8 mmol/L (3.5-5.1); Sodium 131 mmol/L (136-145)
[2021-12-27 07:05] VITALS: BP 152/68; PULSE 71; RESP 24; TEMP 37.7; O2SAT 94
[2021-12-27 07:22] LABS: Absolute Eosinophil Count 0.74 10^3/uL (0.0-0.7); Absolute Lymphocyte Count 0.74 10^3/uL (1.2-3.4); Absolute Monocyte Count 0.98 10^3/uL (0.1-0.8); Absolute Neutrophil Count 21.38 10^3/uL (1.2-6.7); Bands % 5
[2021-12-27 07:23] LABS: Diff Comment Manual Differential; Hypochromasia 1+; Metamyelocytes % 2; Myelocytes % 1; Polychromasia Present
[2021-12-27] MEDS: Polyethylene Glycol 3350 17 GM PACKET PO (07:42)
[2021-12-27] MEDS: Protein Nutritional Supplement 16 GM 1 OUNCE PACKET PO ×3 (07:42→17:22)
[2021-12-27] MEDS: Enoxaparin 60 MG/0.6 ML SYR SC ×2 (07:43→20:29)
[2021-12-27] MEDS: predniSONE 20 MG TAB 40 MG PO (07:44)
[2021-12-27] MEDS: Docusate Sodium 100 MG CAP PO ×2 (07:45→20:28)
[2021-12-27] MEDS: amLODIPine 10 MG TAB PO (07:45)
[2021-12-27] MEDS: Colchicine 0.6 MG TAB PO ×2 (07:45→20:28)
[2021-12-27] MEDS: Omega-3 Fatty Acids 1000 MG CAP PO (07:46)
[2021-12-27] MEDS: Vitamin E 400 UNITS CAP PO (07:46)
[2021-12-27] MEDS: Calcium 600mg/Vit D 200U TAB 1 TAB PO (07:46)
[2021-12-27] MEDS: Furosemide 40 MG TAB PO (07:46)
[2021-12-27] MEDS: Ascorbic Acid 500 MG TAB PO (07:46)
[2021-12-27] MEDS: Acetaminophen 325 MG TAB 650 MG PO ×4 (07:46→20:28)
[2021-12-27] MEDS: Lisinopril 20 MG TAB PO (07:46)
[2021-12-27] MEDS: Nystatin POWDER 60 GM JAR TP ×2 (07:47→20:29)
[2021-12-27] MEDS: Nystatin CREAM 15 GM TUBE TP ×2 (07:47→20:28)
--- NOTE | 2021-12-27 08:37 | OT.INTREAT ---
Date of service: 12/27/21 Time of Service: 08:15 Occupational Therapy Notes Occupational Therapy Inpatient Treatment Note Date: 12/27/21 PRECAUTIONS: Fall, standard, full SUBJECTIVE:?Pt is much more alert this morning. He is agreeable to OT session and performance of his ADLs. OBJECTIVE:? PAIN:c/o pain in (B) UE with ROM And (B) LE with movement of legs. ? ? ? BATHING:?sitting in bed with max (A) set up/clean up and max (A) trunk support Upper Body: (I) face, top of abdomen and underarms/arms, pt does requires min (A) with (R) UE as he is able to perform his underarm this morning with fair technique. DRESSING:?? lying in bed in the sitting position with max (A) back support ? ? Upper Extremity: min (A) [facility] gown with for functional (I) ? TREATMENT CODES/TIME:?[id number], 25 minutes (08:15)? Carmen Romero, OTR/L [facility]
--- NOTE | 2021-12-27 09:14 | CMPROGNOTE_ITS ---
- If Service Date Differs Date of service: 12/27/21 Time of Service: 09:14 Care Management Progress Note S/O: Home was sitting up in his bed when CM met with him. He reported that he is feeling ok today, and was waiting to work with PT. CM spoke to PT, who is concerned that he is not moving as well as he may be able to. CM will discuss this with Home to attempt to determine what his barriers to moving may be. Palliative care has been consulted to discuss goals of care. Per report, his labs are improving and he remains on IV antibiotics. CM will continue to follow. A: Home is a 71 year old man admitted on 12/18/21 with cellulitis and fever P:Home will likely be transferred to a SNF for short term rehab prior to returning home. He will likely need to remain at [facility] for IVAB before he can transfer to a SNF. A referral was sent to [facility] at his request. He will follow up with the facility provider and plan of care and transport via w/c van. CM will continue to support Home and assess for ongoing discharge concerns.
[2021-12-27 11:46] LABS: Procalcitonin 0.6 ng/mL
--- NOTE | 2021-12-27 13:57 | W.PM.PROGNOT ---
Date of Service Date of service: 12/27/21 Time of Service: 13:57 Assessment and Plan Assessment and plan (1) Gouty arthritis of right knee: Status: Acute Assessment and plan: improvement of the knee bilaterally especially on the right. No erythema or pain with palpation. States just chronic pain. Erythema has receded, margins are now clearing. Some pink behind the knee. Continue prednisone burst for a total of 6 days and continue colchicine for 2 weeks then start on alopurinol. WBC elevated likely in setting of steroids He is currently on dapto and cefepime which appears clinically to be working despite rising leukocytosis. Repeat CRP improved. Blood cultures no growth Knee aspiration anerobic and aerobic fluid no growth at this time. (2) Bacteremia: Status: Resolved Assessment and plan: Cleared bacteremia, on cefepime and dapto will need at least 2 weeks or longer of antiobiotics also as above Cleared cx on 12/20 afebrile, continue to monitor. (3) Cellulitis: Status: Acute Assessment and plan: improving with in the margins. now pink behind knee only. no erythema to knee or surrounding area Qualifiers: Laterality: right Site of cellulitis of extremity: lower extremity (4) Edema: Status: Chronic Assessment and plan: continue lasix (5) Essential hypertension: Status: Chronic Assessment and plan: continue home meds, bp still in 150's to 180's will increase amlodipine to 10 mg. continue to monitor. (6) DVT prophylaxis: Status: Acute Assessment and plan: weight based enoxaparin per pharmacy recommendations (7) Discharge planning issues: Status: Acute Assessment and plan: anticipate at least 2 weeks of IV antibiotics, in addition to skilled rehabilitation facility prior to going home discussed with dr. lincoln Subjective Subjective Patient reports: no new complaints, feels better, tolerating liquids well, tolerating a regular diet, no bowel movement and afebrile; denies shortness of breath Interval history since last seen: still requiring robert lift for transfers. Exam Const General: cooperative and ill appearing chronically Nutritional Appearance: obese morbidly obese Orientation: alert, awake and oriented x3 HENMT Head: normal to inspection, normocephalic and atraumatic Mouth: moist mucous membranes abnormal (dry) Chest Chest: normal inspection of the chest Resp Effort & Inspection: normal respiratory effort Auscultation: diminished lung sounds (bases) Cardio Rate: regular rate Rhythm: regular rhythm GI Inspection: large pannus and obesity Palpation: soft General: other (grant to gravity draining clear yellow medium urine) Skin Rashes: rashes noted (under breast, pannus and right lower extremity) and other (RLE: erythematous well within skin markings and markedly improved) Neuro General: patient alert, patient awake, patient oriented x3 and no focal motor deficits Cognition: normal cognition Speech: speech normal Gait: other (unable to bear weight) Motor: strength abnormal (1/5 bilateral lower) Extrem General: edema Laterality: bilateral (right greater than left. ) Psych Mental Status: mental status grossly normal Speech and Movement: speech and movement normal Mood: congruent mood Affect: normal affect Attitude: cooperative Thought Process: normal Thought Content: normal Insight: insight good Judgment: judgment good Objective Last Vital Signs Temp 37.7 C H 12/27/21 07:05 Pulse 71 12/27/21 07:05 Resp 24 12/27/21 07:05 BP 152/68 H 12/27/21 07:05 Pulse Ox 94 12/27/21 07:05 Laboratory Results - last 24 hr 12/27/21 12/27/21 12/27/21 06:20 06:20 06:20 WBC 24.57 H RBC 3.91 L Hgb 10.6 L Hct 33.2 L MCV 84.9 MCH 27.1 MCHC 31.9 L RDW 15.3 H Plt Count 315 MPV 9.6 Immature Gran % See Differential Neutrophils % 82.0 Band Neutrophils % 5 Lymphocytes % 3.0 Monocytes % 4.0 Eosinophils % 3.0 Basophils % 0.0 Metamyelocytes % 2 Myelocytes % 1 Nucleated RBC % 0 Absolute Neutrophils 21.38 H Absolute Lymphocytes 0.74 L Absolute Monocytes 0.98 H Absolute Eosinophils 0.74 H Absolute Basophils 0.00 RBC Morphology See Below Polychromasia Present Hypochromasia 1+ Sodium 131 L Potassium 4.8 Chloride 99 Carbon Dioxide 24.2 Anion Gap 7.8 BUN 40 H Creatinine 0.7 Estimated GFR/1.73 m2 >= 60.00 Glucose 112 H Calcium 8.0 L Procalcitonin 0.6
--- NOTE | 2021-12-27 14:41 | PT.INPN ---
Date of service: 12/27/21 Time of Service: 14:41 PT Notes Visit Reasons: Right Lower Extremity Physical Therapy Inpatient Progress Note Date: 12/27/2021 Dates of Service: 12/19/2021 through 12/27/2021 Referring Doctor: Michela Lora NP PT Orders: PT CONSULT: Eval/treat Precautions: Fall. Standard. Activity as tolerated. Patient Profile/Admitting Diagnosis: Ezio is a 71-year-old male who presented to the ED on 12/18/2021 due to gradual worsening of right lower extremity, feeling of generalized weakness, fever, and recent fall.? Patient is diagnosed with rhabdomyolysis, cellulitis, acute kidney injury, and edema. 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 Independent with all aspects of ADLs prior to admission.? Still drives. Equipment Owned/DME: [facility], Subjective: Objective: General Observation: Appears to have some facial droop on the L lower side of face. Supine in bed.? Steinberg catheter in place.? IV access in left UE.? High BMI. Mental Status: Alert and oriented as to person, place, time, and purpose. Able to pay attention, focus, and respond appropriately. Pain: 10/10 in B LE ROM: Right Upper Extremity: ? Shoulder Flexion WFL. Shoulder abduction WFL. Elbow flexion WFL. Wrist flexion WFL. Functional opening and closing of hand WFL. Left Upper Extremity:? Shoulder Flexion WFL. Shoulder abduction WFL. Elbow flexion WFL. Wrist flexion WFL. Functional opening and closing of hand WFL. Right Lower Extremity: Hip flexion unable. Hip abduction unable. Knee flexion unable. Knee extension unable. Ankle plantarflexion 20 degrees. Left Lower Extremity: Hip flexion unable. Hip abduction unable. Knee flexion unable. Knee extension -80 degrees while sitting at edge of bed. Ankle dorsiflexion 20 degrees. Ankle dorsiflexion 10 degrees. Ankle plantarflexion 20 degrees. Strength: Right Upper Extremity: Shoulder flexors 4-/5. Shoulder abductors 4-/5. Elbow flexors 4-/5. Elbow extensors 4-/5. Industrial Maintenance Electrician strong. Left Upper Extremity: Shoulder flexors 4-/5. Shoulder abductors 4-/5. Elbow flexors 4-/5. Elbow extensors 4-/5. Industrial Maintenance Electrician strong. Right Lower Extremity: Hip flexors 1/5. Hip abductors 1/5. Knee flexors 1/5. Knee extensors 1/5. Ankle dorsiflexors 3-/5. Ankle plantarflexors 3-/5. Left Lower Extremity: Hip flexors 1/5. Hip abductors 1/5. Knee flexors 1/5. Knee extensors 1/5. Ankle dorsiflexors 3-/5. Ankle plantarflexors 3-/5. Sensation:? Reports numbness in B LE Bed Mobility/Transfers: Rolling moderate assist of 4 Sit to stand maximal assist of 4-5 Stand to sit maximal assist of 4-5 Bed to chair via mechanical lift by nursing staff Chair to bed via mechanical lift by nursing staff Gait: Unable and unwilling to try at this time Balance: Static Sitting: unable and unwilling to try at this time Dynamic Sitting: unable and unwilling to try at this time Static Standing: unable and unwilling to try at this time Dynamic Standing: unable and unwilling to try at this time Special Tests: Mobility Limitations Standardized Measure [facility] 6 clicks Basic Mobility Inpatient Short Form: Raw Score: 6? CMS Score: 100% deficit? ? ? Informed Consent/Education:? Patient was instructed in purpose of PT consult and plan of care. Agreeable to proceed with established PT POC to achieve personal goals. Assessment:? Ezio has not made any meaningful functional gains in terms of mobility level. Several attempts at standing up with the assistance of at least 4-5 people have been made since start of care, however patient has shown no indication of voluntarily zohreh B LE and trunk muscles despite strengthening efforts since day of evaluation. The rhabdomyolysis may have been extensive compounded by cellulitis, body habitus, and gouty arthritis. B LE muscle strength has stayed at 1/5 to 2-/5 and any attempts at standing remains unsafe both for patient and caregivers. Patient will therefore require SNF placement to gradually work on bed mobility, core strengthening, trunk mobility prior to safely attempting any standing activities. Patient will remain mechanical lift for all essential transfers. Nursing staff have worked on converting sitting position just on the bariatric bed to ensure that adequate pressure relief is provided. Prognosis for being able to walk again is fair to poor basing on ongoing barriers. Concerns for achievement of goals have been presented with patient case manager Bonita ta who stated that palliative consult may be in order to see if his personal goals have changed. OT Carmen noticed some faial droop early this morning which she brought up to this PT. A noticeable droop is seen and METAL FENCE ERECTOR Michela was updated about facial droop as well as patient's poor overall functional prognosis. Patient presents with clinical signs and symptoms consistent with current/admitting diagnoses that have resulted to mobility limitations, gait instability, generalized weakness, and overall ADL decline as demonstrated by the following impairment level findings: 1.? Decreased strength to B UE/LE major muscle groups 2.? Impaired sitting/standing balance 3.? Impaired activity tolerance 4.? Limitation of joint range of motion in B LE joints 5.? Obesity 6.? B LE pain and swelling Impairments are contributing to the following functional limitations: 1.? Decline in bed mobility skills 2.? Decline in transfer skills 3.? Inability to perform ambulation without assistive device and physical assistance 4.? Increased completion time for mobility ADL performance 5.? Increased risk for falls 6.? Difficulty with managing steps 7. Inability to throve at home safely at this time Patient is assessed as a 15493 complexity based on the following: History: 71-year-old male with past medical history as indicated above Examination: Demonstrable impairment in strength, balance, and mobility level with underlying impairments and functional limitations as exhibited above as well as deficit score of 100% utilizing the [facility] Mobility Inpatient Short Form Presentation: Unstable Decision Makin high complexity Goals: Goals X1 week 1. Supine-Sit minimal assist NOT MET 2. Sit-Supine minimal assist NOT MET 3. Sit-Stand minimal assist NOT MET 4. Stand-Sit minimal assist with bariatric front wheeled walker NOT MET 5. Bed-Chair iminimal assist with bariatric front wheeled walker NOT MET 6. Chair-Bed iminimal assist with bariatric front wheeled walker NOT MET 7. Minimal assist with bariatric front wheeled walker for gait on level surface for at least 30 feet without report of pain nor dyspnea NOT MET 8. Minimal assist with stair negotiation while holding onto B rails for at least 3 steps without report of pain nor dyspnea NOT MET DISCHARGE RECOMMENDATIONS: [] ? Home with no services [] [] ? Home with services [specify] [] ? Home with outpatient PT [] [X] ? SNF for continued rehabilitation.? Patient will benefit from jail facility placement for continued skilled physical therapy services in order to progress mobility level, strength, and balance in preparation for a safe discharge to home. [] ? Assisted Care [] [] ? SNF versus LTC based on ability to participate and progress [] TREATMENT CODE/TIME: 18996 x 18 minutes beginning at 14:41 PM. Was unavailable for treatment this morning. Thank you for the opportunity to participate in the care of this patient. Marisa Mcleod PT, DPT, CLT [facility] [place], [place]
--- NOTE | 2021-12-27 14:52 | W.NUTRFU ---
Date of service: 12/27/21 Time of Service: 14:53 Nutrition Note NOTE: PO intake is quite variable. Will continue providing Ensure Plus twice daily. He does drink those when he doesn't eat his meal. Time Spent in Nutritional Counseling and Treatment: 0
--- NOTE | 2021-12-27 15:08 | W.PM.PROGNOT ---
Date of Service Date of service: 12/27/21 Time of Service: 13:45 Assessment and Plan Assessment and plan (1) Cellulitis: Status: Acute Assessment and plan: Gout of right knee- on treatment Cellulitis of right gaspar- has UNNA BOOT in place. UNNA Boot was changed yesterday, one day early. We will sign off at this time. He can follow up as outpatient for his gaspar Qualifiers: Site of cellulitis of extremity: lower extremity Laterality: right (2) DVT prophylaxis: Status: Acute (3) Bacteremia: Status: Resolved (4) Acute kidney injury: Status: Resolved Assessment and plan: -Recommend gentle IVF, trending down, avoid excessive use of nephrotoxic medications and monitor renal function as he has gotten toradol, lasix and IV contrast -Defer to hospitalist (5) Edema: Status: Chronic (6) Tubulovillous adenoma: Status: Acute (7) Obesity: Status: Acute Qualifiers: Obesity type: due to excess calories Obesity classification: unspecified obesity classification Serious obesity comorbidity presence: without serious comorbidity Qualified Code(s): E66.09 - Other obesity due to excess calories (8) Essential hypertension: Status: Chronic Subjective Subjective Interval history since last seen: Mr. Paulson is doing well. He has had much less pain since he was started on treatment for gout. I was going to change his UNNA BOOT but unfortunately it was changed one day early by nursing staff and we were not alerted. Exam Extrem Other: There is edema of the right foot, it is decreased from last week. 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 No discharge Objective Last Vital Signs Temp 99.9 F H 12/27/21 07:05 Pulse 71 12/27/21 07:05 Resp 24 12/27/21 07:05 BP 152/68 H 12/27/21 07:05 Pulse Ox 94 12/27/21 07:05 Laboratory Results - last 24 hr 12/27/21 12/27/21 12/27/21 06:20 06:20 06:20 WBC 24.57 H RBC 3.91 L Hgb 10.6 L Hct 33.2 L MCV 84.9 MCH 27.1 MCHC 31.9 L RDW 15.3 H Plt Count 315 MPV 9.6 Immature Gran % See Differential Neutrophils % 82.0 Band Neutrophils % 5 Lymphocytes % 3.0 Monocytes % 4.0 Eosinophils % 3.0 Basophils % 0.0 Metamyelocytes % 2 Myelocytes % 1 Nucleated RBC % 0 Absolute Neutrophils 21.38 H Absolute Lymphocytes 0.74 L Absolute Monocytes 0.98 H Absolute Eosinophils 0.74 H Absolute Basophils 0.00 RBC Morphology See Below Polychromasia Present Hypochromasia 1+ Sodium 131 L Potassium 4.8 Chloride 99 Carbon Dioxide 24.2 Anion Gap 7.8 BUN 40 H Creatinine 0.7 Estimated GFR/1.73 m2 >= 60.00 Glucose 112 H Calcium 8.0 L Procalcitonin 0.6
[2021-12-27 15:34] VITALS: BP 134/74; PULSE 93; RESP 20; TEMP 37.1; O2SAT 92
[2021-12-27 20:58] VITALS: BP 145/79; PULSE 86; RESP 12; TEMP 37.1; O2SAT 99
[2021-12-28] MEDS: MORPHine 2 MG/ML SYR IVP (01:57)
[2021-12-28] MEDS: Melatonin 3 MG TAB 9 MG PO ×2 (01:58→22:09)
[2021-12-28] MEDS: Normal Saline Flush 10 ML SYR IVP ×2 (01:59→08:13)
[2021-12-28] MEDS: CEFEPIME 2 GM in Normal Saline 100 ML IVPB ×3 (01:59→17:38)
[2021-12-28] MEDS: Protein Nutritional Supplement 16 GM 1 OUNCE PACKET PO ×3 (08:13→16:06)
[2021-12-28] MEDS: Enoxaparin 60 MG/0.6 ML SYR SC ×2 (08:15→19:21)
[2021-12-28] MEDS: Acetaminophen 325 MG TAB 650 MG PO ×4 (08:16→19:21)
[2021-12-28] MEDS: Colchicine 0.6 MG TAB PO ×2 (08:16→19:21)
[2021-12-28] MEDS: predniSONE 20 MG TAB 40 MG PO (08:16)
[2021-12-28] MEDS: amLODIPine 10 MG TAB PO (08:17)
[2021-12-28] MEDS: Ascorbic Acid 500 MG TAB PO (08:17)
[2021-12-28] MEDS: Omega-3 Fatty Acids 1000 MG CAP PO (08:17)
[2021-12-28] MEDS: Calcium 600mg/Vit D 200U TAB 1 TAB PO (08:17)
[2021-12-28] MEDS: Furosemide 40 MG TAB PO (08:18)
[2021-12-28] MEDS: Docusate Sodium 100 MG CAP PO ×2 (08:18→19:21)
[2021-12-28] MEDS: Vitamin E 400 UNITS CAP PO (08:18)
[2021-12-28] MEDS: Lisinopril 20 MG TAB PO (08:18)
[2021-12-28] MEDS: Polyethylene Glycol 3350 17 GM PACKET PO (08:19)
[2021-12-28] MEDS: Milk of Magnesia 30 ML CUP PO (08:19)
[2021-12-28] MEDS: Nystatin CREAM 15 GM TUBE TP ×2 (08:19→19:22)
[2021-12-28] MEDS: Nystatin POWDER 60 GM JAR TP ×2 (08:20→19:25)
--- NOTE | 2021-12-28 09:00 | OTTR_ITS ---
Date of service: 12/28/21 Time of Service: 08:40 Occupational Therapy Notes Occupational Therapy Inpatient Treatment Note Date: 12/28/21 PRECAUTIONS: Fall, standard, full SUBJECTIVE:?Pt is receptive to performance of his Upper body ADLS. He notes that he believes he is going to the [facility] for [facility] care due to his decline in functional mobility. OBJECTIVE:? PAIN:c/o pain in (B) UE with ROM And (B) LE with movement of legs. ? ? ? BATHING:?sitting in bed with max (A) set up/clean up and max (A) trunk support Upper Body: (I) face, top of abdomen and underarms/arms, pt does requires min (A) with (R) UE as he is able to perform his underarm this morning with fair- good technique. DRESSING:?? lying in bed in the sitting position with max (A) back support ? ? Upper Extremity: min (A) [facility] gown with for functional (I) ? TREATMENT CODES/TIME:?20286, 20 minutes (08:40)? Carmen Romero, OTR/L [facility]
--- NOTE | 2021-12-28 09:36 | W.PALLCONSUL ---
Date of service: 12/28/21 Time of Service: 09:42 History of Present Illness Narrative: Elan is a very pleasant 71 year old man with a past medical history significant for morbid obesity, HTN and leg wounds. He is currently admitted ot [facility] and being treated for septic arthritis of the right knee, bacteremia and gout. Palliative was consulted to discuss goals of care. He reports that he thinks he is going to SNF on discharge, he prefers the [facility] Nursing has been transferring him via robert lift. He states he cannot bear weight. He does not think he will walk again. PT is recommending rehab. He does not think he can live at home alone anymore. He knows he is not safe alone and will require assistance. [place] He would name his sister Heather Acosta to be his health care agent. She lives in [place]. He wants to talk to Heather to make sure she agrees before putting it in writing. We discussed CODE status, he is clear that he is a DNR/DNI. He named his sister, Heather to be his agent on the COLST. He does not want a feeding tube, he does not want transfer to the hospital, he does not want a feeding tube, he would accept IV fluids to see if he returns to his baseline. Overall, he prefers comfort focused care. He is open to follow up with palliative as an outpatient. Assessment and Plan Assessment and plan (1) Gouty arthritis of right knee: Status: Acute (2) Septic arthritis of knee, right: Status: Ruled-out (3) Bacteremia: Status: Resolved (4) Acute kidney injury: Status: Resolved (5) Rhabdomyolysis: Status: Resolved (6) Cellulitis: Status: Acute Qualifiers: Site of cellulitis of extremity: lower extremity Laterality: right (7) Edema: Status: Chronic (8) Obesity: Status: Acute Qualifiers: Obesity type: due to excess calories Obesity classification: unspecified obesity classification Serious obesity comorbidity presence: without serious comorbidity Qualified Code(s): E66.09 - Other obesity due to excess calories (9) Essential hypertension: Status: Chronic (10) DNR (do not resuscitate): (11) DNI (do not intubate): (12) POLST (Physician Orders for Life-Sustaining Treatment): (13) Palliative care patient: Assessment and plan: Elan is a very pleasant 71 year old man who is currently hospitalized for right knee infection, gout and bacteremia. He is on IV antibiotics. Palliative was consulted to discuss goals of care. He was living alone in his trailer prior to being admitted to the hospital. He is able to identify that he is no longer safe living alone. He is unable to bear weight. He has been transferred via robert lift. He does not think he will be able to walk again. PT recommends SNF for rehab. He is interested in going to the [facility]. He has not yet been accepted to the [facility]. His tongue is sore and he has white patches, ?oral thrush. We reviewed CODE status and completed a COLST form. He is a DNR/DNI, he does not want to be transferred back to the hospital. He does not want a feeding tube. He prefers comfort focused care. He named his sister, Heather Acosta to be his agent on his COLST. His COLST will be filed in his chart and sent to the SNF. He is open to follow up with Palliative as an outpatient. Follow up in 2 months. Review of Systems Narrative: His tongue is a little sore. He denies SOB or cough. He is eating and drinking and tolerating his diet. He denies nausea. He has had a BM during his hospitalization but does not have a documented stool for days. He denies pain. 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) Essential hypertension (Chronic 08/04/13) Medical History (Updated 12/28/21 @ 10:50 by Siobhan Roberts NP) DNI (do not intubate) DNR (do not resuscitate) History of alcoholism quit 1989 History of tobacco use quit in 1995 Palliative care patient POLST (Physician Orders for Life-Sustaining Treatment) Renal failure syndrome (05/27/13) Ulcer of other part of foot (10/03/95) Surgical History History of colonoscopy History of excision of mass PROCEDURES EXCIS SPINAL CORD LESION, 1982 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 Sister No problems noted. Sister No problems noted. Sister No problems noted. Social History Smoking/Tobacco Use Status: Former Tobacco Use tobacco type: cigarettes Quit Date: 11/04/95 Second Hand Exposure: No Smoking risk assessment performed?: Yes Alcohol Intake: former Drug use: Never Substance use type: does not use Details: Pt states sober since 1995 Caregiver/Support person: No Do you need help understanding health information?: Never Pets and animals: No Sexually active: No Do you think of yourself as: straight/heterosexual Current gender identity: male What is your relationship status?: How often do you talk on the phone with friends or family?: twice per week How often do you get together with friends or relatives?: once per week How often do you attend gnosticist or latter-day services?: decline to answer Do you belong to any clubs or organized social groups?: no Panel score (0-1 are the most socially isolated patients): 1 What type of physical activity do you participate in: weight lifting Duration: 15-30 minutes/day Frequency: 5-6 times per week Dasha/Latter Day: No preference Special dasha needs: No Seatbelt use: always Helmet use: No Drive intox or ride w/intox flag car driver: No Do you feel safe at home: Yes Victim of physical abuse: No Victim of emotional abuse: No Victim of sexual abuse: No Exam Narrative Exam Narrative: General: obese male, laying in bed, awake and alert, pleasant and talkative, answers questions appropriately. HEENT: normocephalic, atraumatic, EOMI, tongue is dry with white patches. Neck: supple, no JVD. Cardiovascular: heart sounds regular, nontachycardic. Respiratory: respirations appear even and unlabored, lung sounds are clear on limited anterior and lateral exam. GI: +BS, large, round abdomen, soft, nontender on palpation, nondistended. Extremities: +edema to BLEs, unna boot to RLE, wounds noted to toes on bilateral feet. Results Last Vital Signs Temp 37.1 C 12/27/21 20:58 Pulse 86 12/27/21 20:58 Resp 12 12/27/21 20:58 BP 145/79 H 12/27/21 20:58 Pulse Ox 99 12/27/21 20:58 Labs Result diagrams: 12/27/21 06:20 12/27/21 06:20 Labs: Laboratory Results - last 24 hr 12/27/21 06:20 Procalcitonin 0.6
[2021-12-28] MEDS: traMADol 50 MG TAB PO ×2 (11:36→19:25)
--- NOTE | 2021-12-28 13:24 | W.PM.PROGNOT ---
Date of Service Date of service: 12/28/21 Time of Service: 13:24 Assessment and Plan Assessment and plan (1) Gouty arthritis of right knee: Status: Acute Assessment and plan: improvement of the knee bilaterally especially on the right. No erythema or pain with palpation. States just chronic pain. Erythema has receded, margins are now clearing. Some pink behind the knee. Continue prednisone burst for a total of 6 days and continue colchicine for 2 weeks then start on alopurinol. WBC elevated likely in setting of steroids He is currently on dapto and cefepime which appears clinically to be working despite rising leukocytosis. Repeat CRP improved. Blood cultures no growth Knee aspiration anerobic and aerobic fluid no growth at this time. (2) Bacteremia: Status: Resolved Assessment and plan: Cleared bacteremia, on cefepime and dapto will need at least 2 weeks or longer of antiobiotics also as above Cleared cx on 12/20 afebrile, continue to monitor. (3) Cellulitis: Status: Acute Assessment and plan: improving with in the margins. now pink behind knee only. no erythema to knee or surrounding area Qualifiers: Laterality: right Site of cellulitis of extremity: lower extremity (4) Edema: Status: Chronic Assessment and plan: continue lasix (5) Essential hypertension: Status: Chronic Assessment and plan: continue home meds, bp still in 150's to 180's will increase amlodipine to 10 mg. continue to monitor. (6) DVT prophylaxis: Status: Acute Assessment and plan: weight based enoxaparin per pharmacy recommendations (7) Discharge planning issues: Status: Acute Assessment and plan: anticipate at least 2 weeks of IV antibiotics, in addition to skilled rehabilitation facility prior to going home discussed with dr. lincoln Subjective Subjective Patient reports: no new complaints, tolerating liquids well and tolerating a regular diet Interval history since last seen: still requiring robert lift for transfers. Exam Const General: cooperative and ill appearing chronically Nutritional Appearance: obese morbidly obese Orientation: alert, awake and oriented x3 HENMT Head: normal to inspection, normocephalic and atraumatic Mouth: moist mucous membranes abnormal (dry) Chest Chest: normal inspection of the chest Resp Effort & Inspection: normal respiratory effort Auscultation: diminished lung sounds (bases) Cardio Rate: regular rate Rhythm: regular rhythm GI Inspection: large pannus and obesity Palpation: soft General: other (grant to gravity draining clear yellow medium urine) Skin Rashes: rashes noted (under breast, pannus and right lower extremity) and other (RLE: erythematous well within skin markings and markedly improved) Neuro General: patient alert, patient awake, patient oriented x3 and no focal motor deficits Cognition: normal cognition Speech: speech normal Gait: other (unable to bear weight) Motor: muscle tone normal throughout and strength abnormal (1/5 bilateral lower) Extrem General: edema Laterality: bilateral (right greater than left. ) Psych Mental Status: mental status grossly normal Speech and Movement: speech and movement normal Mood: congruent mood Affect: normal affect Attitude: cooperative Thought Process: normal Thought Content: normal Insight: insight good Judgment: judgment good Objective Last Vital Signs Temp 37.1 C 12/27/21 20:58 Pulse 86 12/27/21 20:58 Resp 12 12/27/21 20:58 BP 145/79 H 12/27/21 20:58 Pulse Ox 99 12/27/21 20:58
[2021-12-28 15:39] VITALS: BP 174/71; PULSE 80; RESP 20; TEMP 37; O2SAT 95
--- NOTE | 2021-12-28 15:56 | PT.INTREAT ---
Date of service: 12/28/21 Time of Service: 15:56 PT Notes Visit Reasons: Right Lower Extremity Physical Therapy Inpatient Treatment Note Date: 12/28/2021 Precautions: Fall. Standard. Activity as tolerated. Subjective: Agreeable to focusing on core strengthening, B UE and LE mobilization at ths time. Hopefully waiting for SNF placement for long-term placement. Objective: General Observation: Appears to have some facial droop on the L lower side of face.? Supine in bed.? Steinberg catheter in place.? IV access in left UE.? High BMI. Mental Status: Alert and oriented as to person, place, time, and purpose. Able to pay attention, focus, and respond appropriately. Pain: 8-910 in B LE with movement Bed Mobility/Transfers: Rolling moderate assist of 2 Gait: Unable and unsafe at this time THERA EX: With the chair feature of bariatric bed activated, worked on trunk leaning forward, to left and to right x 10 each while pulling on B leg rails. Pull ups using overhead trapeze with abdominal bracing encouraged x 10. UE strengthening exercises using 3 lb ankle weights. HIp IR/adduction x 10, heel slides x 10 (very minimal movement), and ankle DF/PF x 10. In the afternoon, worked on rolling to L using R hand pulling on the L leg rail, pull ups using overhead trapeze x 10, and hip IR/adduction x 10. Balance: Static Sitting: Fair Dynamic Sitting: Poor Static Standing: Unable and unsafe at this time Dynamic Standing: Unable and unsafe at this time Assessment:? Treatment focus will now be on increasing trunk mobility as well as stability, B UE/LE strength, and incraesing static and dynamic sitting balance and tolerance. DISCHARGE RECOMMENDATIONS: [] ? Home with no services [] [] ? Home with services [specify] [] ? Home with outpatient PT [] [X] ? SNF for continued rehabilitation.? Patient will benefit from half-way facility placement for continued skilled physical therapy services in order to progress mobility level, strength, and balance in preparation for a safe discharge to home. [] ? [facility] [] [] ? SNF versus LTC based on ability to participate and progress [] TREATMENT CODE/TIME: Session 1 --73649 x 28 minutes beginning at 10:30 AM. Session 2--[id number] x 16 minutes beginning at 15:56 PM.
[2021-12-28] MEDS: Nystatin 500000 UNITS/5 ML SUSP 5ML CUP PO ×2 (17:38→22:09)
--- NOTE | 2021-12-28 19:25 | PDOC.CMPRO ---
- If Service Date Differs Date of service: 12/28/21 Time of Service: 19:26 Care Management Progress Note S/O: Ezio, who prefers to be called Elan, was sitting up in bed visiting with a friend this afternoon when CM met with him. He reported that he is feeling better, although he is still very nervous about putting weight on his foot/leg. CM discussed his mobility, as the concern is that if he does not put in the effort to move he may become bed bound. CM reviewed his discharge plan, to continue his IV antibiotic therapy at [facility], and then go to a SNF for rehab. His first choice for SNF is [facility], but he stated today that he is willing to send the referral to any facility that has bed availability. CM will continue to follow. A: Ezio is a 71 year old man admitted on 12/18/21 with cellulitis and fever P:Ezio will likely be transferred to a SNF for short term rehab prior to returning home. He will likely need to remain at [facility] for IVAB before he can transfer to a SNF. A referral was sent to [facility] at his request. He will follow up with the facility provider and plan of care and transport via w/c van. CM will continue to support Home and assess for ongoing discharge concerns.
[2021-12-28 23:15] VITALS: BP 116/71; PULSE 72; RESP 20; TEMP 36.4; O2SAT 95
--- NOTE | 2021-12-29 | DI.US_ITS ---
Exam(s) US LOWER EXTREMITY VENOUS LT EXAM: US LOWER EXTREMITY VENOUS LT CLINICAL HISTORY: erythema pain TECHNIQUE: Grayscale, color, and doppler imaging of the deep venous system of the left lower extremi ty was performed. COMPARISON: No exams were available for comparison FINDINGS: There is no evidence of intraluminal thrombus and there is normal compression and augmentation demons trated within the common femoral vein, femoral vein, and popliteal vein. In the ipsilateral calf the interrogated veins also exhibit normal compression/ augmentation properti es. The ipsilateral saphenofemoral junction is patent. IMPRESSION: 1. No evidence of DVT in the left lower extremity. Popliteal cyst incidentally noted. DATA REPOSITORY:
[2021-12-29] MEDS: Normal Saline Flush 10 ML SYR IVP ×2 (01:46→17:26)
[2021-12-29] MEDS: traMADol 50 MG TAB PO ×3 (01:47→18:21)
[2021-12-29] MEDS: CEFEPIME 2 GM in Normal Saline 100 ML IVPB ×3 (01:47→17:22)
[2021-12-29] MEDS: Nystatin 500000 UNITS/5 ML SUSP 5ML CUP PO ×5 (06:07→21:41)
[2021-12-29 07:09] LABS: Platelet Count 356 10^3/uL (130-400)
[2021-12-29 07:16] VITALS: BP 166/70; PULSE 87; RESP 24; TEMP 37.1; O2SAT 94
[2021-12-29] MEDS: Protein Nutritional Supplement 16 GM 1 OUNCE PACKET PO ×3 (08:18→17:14)
[2021-12-29] MEDS: Polyethylene Glycol 3350 17 GM PACKET PO (08:18)
[2021-12-29] MEDS: Omega-3 Fatty Acids 1000 MG CAP PO (08:19)
[2021-12-29] MEDS: Enoxaparin 60 MG/0.6 ML SYR SC ×2 (08:19→20:02)
[2021-12-29] MEDS: Acetaminophen 325 MG TAB 650 MG PO ×4 (08:19→20:01)
[2021-12-29] MEDS: Colchicine 0.6 MG TAB PO ×2 (08:19→20:02)
[2021-12-29] MEDS: Docusate Sodium 100 MG CAP PO ×2 (08:19→20:02)
[2021-12-29] MEDS: Calcium 600mg/Vit D 200U TAB 1 TAB PO (08:19)
[2021-12-29] MEDS: amLODIPine 10 MG TAB PO (08:19)
[2021-12-29] MEDS: Vitamin E 400 UNITS CAP PO (08:20)
[2021-12-29] MEDS: Ascorbic Acid 500 MG TAB PO (08:20)
[2021-12-29] MEDS: Furosemide 40 MG TAB PO (08:20)
[2021-12-29] MEDS: Lisinopril 20 MG TAB PO (08:20)
[2021-12-29] MEDS: Nystatin CREAM 15 GM TUBE TP ×2 (08:21→20:04)
[2021-12-29] MEDS: Nystatin POWDER 60 GM JAR TP ×2 (08:22→20:05)
[2021-12-29 08:30] LABS: Anion Gap 5.4 mmol/L (3-11); BUN 38 mg/dL (7-18); CO2 25.6 mmol/L (21.0-32.0); CREATININE 0.7 mg/dL (0.70-1.30); Calcium 8.1 mg/dL (8.5-10.1); Chloride 96 mmol/L (98-107); Glucose 108 mg/dL (74-106); Potassium 4.7 mmol/L (3.5-5.1); Sodium 127 mmol/L (136-145)
[2021-12-29 08:37] LABS: Abs Immature Grans 1.24 10^3/uL (0.0-0.06); Absolute Lymphocyte Count 0.59 10^3/uL (1.2-3.4); Absolute Monocyte Count 1.19 10^3/uL (0.1-0.8); Basophils % 0.6; Eosinophils % 3.7; HGB 9.1 g/dL (13.5-17.5); Lymphocytes % 3.3; MCH 27.6 pg (27.0-33.0); MCHC 32.5 % (32.0-36.0); MCV 84.8 fL (80-95); Monocytes % 6.7; Neutrophils % 78.7; Nucleated RBC 0 %; RDW 15.3 % (11.8-14.1); RDW-SD 47.4 fL; WBC 17.76 10^3/uL (4.4-10.8)
[2021-12-29 08:42] LABS: Absolute Basophil Count 0.11 10^3/uL (0.0-0.2); Absolute Eosinophil Count 0.66 10^3/uL (0.0-0.7); Absolute Neutrophil Count 13.98 10^3/uL (1.2-6.7)
[2021-12-29 08:59] LABS: Diff Comment Diff Reviewed; RBC Morphology Normal
--- NOTE | 2021-12-29 09:51 | CMPROGNOTE_ITS ---
- If Service Date Differs Date of service: 12/29/21 Time of Service: 09:51 Care Management Progress Note S/O: Elan was sitting up in bed when CM met with him. He reported that he is feeling good today, although the position he was sitting in was not comfortable. Elan is being turned regularly to avoid bed sores, as his mobility is very limited at this time. Per provider, he will remain on IV antibiotics through the weekend, and his course will be reviewed to determine if it is necessary to con tinue, or if he can be changed to oral antibiotics at that time. YUN discussed his SNF placement with him, and he decided to have CM send his referral to all open beds in order to potentially obtain multiple offers that he can choose between. CM sent clinicals to MARQUIS Martinez, for his engraver ornamental design [facility] application today. CM will continue to follow. A: Ezio is a 71 year old man admitted on 12/18/21 with cellulitis and fever P:Ezio will likely be transferred to a SNF for short term rehab prior to returning home. He will likely need to remain at [facility] for IVAB before he can transfer to a SNF. A referral was sent to [facility] at his request. He will follow up with the facility provider and plan of care and transport via w/c van. CM will continue to support Home and assess for ongoing discharge concerns.
--- NOTE | 2021-12-29 10:03 | PT.INTREAT ---
PT Notes Visit Reasons: Right Lower Extremity Inpatient Physical Therapy Treatment Note [facility] Date: 12/29/21 PRECAUTIONS: THEREX: Pt completed UE and LE strengthening ther ex as per flow sheet.Pt completed rolling efforts working on his rotation to the best of his abilities. Pt also worked on grabbing the triangle assist bar working of pulls ups and sit ups. ASSESSMENT: Pt tolerated today's session fairly well. Pt was motivated to complete his bed ther ex. PLAN: Cont as per PT POC. TREATMENT CODE/TIME: 8:55-9:20 (98) TPx2
--- NOTE | 2021-12-29 10:20 | W.PM.PROGNOT ---
Date of Service Date of service: 12/26/21 Time of Service: 16:00 Assessment and Plan Assessment and plan (1) Gouty arthritis of right knee: Start date: 12/26/21 Start time: 16:00 Status: Acute Assessment and plan: improvement of the knee bilaterally especially on the right. No erythema or pain with palpation. States just chronic pain. Erythema has receded, margins are now clearing. Some pink behind the knee. Continue prednisone burst for a total of 6 days and continue colchicine for 2 weeks then start on alopurinol. WBC elevated likely in setting of steroids He is currently on dapto and cefepime which appears clinically to be working despite rising leukocytosis. Will repeat CRP in am. Blood cultures no growth Knee aspiration anerobic and aerobic fluid no growth at this time. (2) Bacteremia: Start date: 12/26/21 Start time: 16:00 Status: Resolved Assessment and plan: Cleared bacteremia, on cefepime and dapto will need at least 2 weeks or longer of antiobiotics also as above Cleared cx on 12/20 afebrile, continue to monitor. (3) Cellulitis: Start date: 12/26/21 Start time: 16:00 Status: Acute Assessment and plan: improving with in the margins. now pink behind knee only. no erythema to knee or surrounding area Qualifiers: Site of cellulitis of extremity: lower extremity Laterality: right (4) Rhabdomyolysis: Start date: 12/26/21 Start time: 16:00 Status: Resolved Assessment and plan: resolved (5) Edema: Start date: 12/26/21 Start time: 16:00 Status: Chronic Assessment and plan: continue lasix (6) Essential hypertension: Start date: 12/26/21 Start time: 16:00 Status: Chronic Assessment and plan: continue home meds, bp still in 150's to 180's will increase amlodipine to 10 mg. continue to monitor. (7) DVT prophylaxis: Start date: 12/26/21 Start time: 16:00 Status: Acute Assessment and plan: weight based enoxaparin per pharmacy recommendations (8) Discharge planning issues: Start date: 12/26/21 Start time: 16:00 Status: Acute Assessment and plan: anticipate at least 2 weeks of IV antibiotics, in addition to skilled rehabilitation facility prior to going home discussed with dr. lincoln Subjective Subjective Patient reports: no new complaints Interval history since last seen: laying in bed comfortable, leg improving Exam Const General: cooperative and ill appearing chronically Nutritional Appearance: obese morbidly obese Orientation: alert, awake and oriented x3 HENMT Head: normal to inspection, normocephalic and atraumatic Mouth: moist mucous membranes Chest Chest: normal inspection of the chest Resp Effort & Inspection: normal respiratory effort Auscultation: diminished lung sounds (bases) Cardio Rate: regular rate Rhythm: regular rhythm GI Inspection: large pannus and obesity Palpation: soft General: other (grant to gravity draining clear yellow medium urine) Skin Rashes: rashes noted (under breast, pannus and right lower extremity) and other (RLE: erythematous within skin markings, yellow crust, see NN) Wounds: wounds noted (multiple scabbed areas to body. Left knee) Other: multiple scabbed areas to right foot and left lower extremity. Stage 2 to coccyx Neuro General: patient alert, patient awake, patient oriented x3 and no focal motor deficits Cognition: normal cognition Speech: speech normal Gait: other (only able to sit on edge of bed) Motor: muscle tone normal throughout Extrem General: abnormal to inspection, clubbing, cyanosis or edema noted, edema and other (erythema) Right lower extremity: edema; No abnormal to inspection Left lower extremity: edema Other: erythema improving within the margins barely there now pink behind the knee, no pain to either knee with palpation Psych Mental Status: mental status grossly normal Speech and Movement: speech and movement normal Mood: congruent mood Affect: normal affect Attitude: cooperative Thought Process: normal Thought Content: normal Insight: insight good Judgment: judgment good Objective Last Vital Signs Temp 37.1 C 12/29/21 07:16 Pulse 87 12/29/21 07:16 Resp 24 12/29/21 07:16 BP 166/70 H 12/29/21 07:16 Pulse Ox 94 12/29/21 07:16 Laboratory Results - last 24 hr 12/29/21 12/29/21 12/29/21 06:30 06:30 06:30 WBC 17.76 H Cancelled RBC 3.30 L Cancelled Hgb 9.1 L Cancelled Hct 28.0 L Cancelled MCV 84.8 Cancelled MCH 27.6 Cancelled MCHC 32.5 Cancelled RDW 15.3 H Cancelled Plt Count 356 Cancelled MPV 10.0 Cancelled Immature Gran % 7.0 Cancelled Neutrophils % 78.7 Cancelled Band Neutrophils % Cancelled Lymphocytes % 3.3 Cancelled Atypical Lymphs % Cancelled Monocytes % 6.7 Cancelled Eosinophils % 3.7 Cancelled Basophils % 0.6 Cancelled Metamyelocytes % Cancelled Myelocytes % Cancelled Promyelocytes % Cancelled Other Cells % Cancelled Nucleated RBC % 0 Cancelled Absolute Neutrophils 13.98 H Cancelled Absolute Lymphocytes 0.59 L Cancelled Absolute Monocytes 1.19 H Cancelled Absolute Eosinophils 0.66 Cancelled Absolute Basophils 0.11 Cancelled RBC Morphology Normal Cancelled Polychromasia Cancelled Hypochromasia Cancelled Poikilocytosis Cancelled Basophilic Stippling Cancelled Anisocytosis Cancelled Microcytosis Cancelled Macrocytosis Cancelled Spherocytes Cancelled Tear Drop Cells Cancelled Ovalocytes Cancelled Stomatocytes Cancelled Jackson[place] Bodies Cancelled Bethel Cells/Echinocytes Cancelled Acanthocytes (Spur) Cancelled Schistocytes Cancelled Sodium 127 L Potassium 4.7 Chloride 96 L Carbon Dioxide 25.6 Anion Gap 5.4 BUN 38 H Creatinine 0.7 Estimated GFR/1.73 m2 >= 60.00 Glucose 108 H Calcium 8.1 L
--- NOTE | 2021-12-29 10:29 | PGE_ITS ---
Date of Service Date of service: 12/29/21 Time of Service: 10:30 Assessment and Plan Assessment and plan (1) Gouty arthritis of right knee: Start date: 12/29/21 Start time: 10:34 Status: Acute Assessment and plan: improvement of the knee bilaterally especially on the right. No erythema or pain with palpation. States just chronic pain. Erythema has receded, margins are now clearing. Some pink behind the knee. Continue prednisone burst for a total of 6 days and continue colchicine for 2 w eeks then start on alopurinol. WBC improving down to 17 k today He is currently on dapto and cefepime which appears clinically to be working. Repeat CRP improved. Blood cultures no growth Knee aspiration anerobic and aerobic fluid no growth at this time. (2) Cellulitis: Start date: 12/29/21 Start time: 10:35 Status: Acute Assessment and plan: No erythema or pink areas seen around knee or surrounding areas. Qualifiers: Site of cellulitis of extremity: lower extremity Laterality: right (3) Edema: Start date: 12/29/21 Start time: 10:36 Status: Chronic Assessment and plan: continue lasix (4) Ulcer of penis: Start date: 12/29/21 Start time: 10:35 Status: Acute Assessment and plan: Patient has three open areas to penis. Will treat with Bacitracin (5) Essential hypertension: Start date: 12/29/21 Start time: 10:36 Status: Chronic Assessment and plan: continue home meds, lisinopril and amolodipine added for bp control bp slightly improved from 170's-180's continue to monitor. (6) DVT prophylaxis: Start date: 12/29/21 Start time: 10:38 Status: Acute Assessment and plan: weight based enoxaparin per pharmacy recommendations (7) Discharge planning issues: Start date: 12/29/21 Start time: 10:39 Status: Acute Assessment and plan: anticipate at least 2 weeks of IV antibiotics, in addition to skilled rehabili tation facility prior to going home discussed with dr. lincoln Subjective Subjective Patient reports: other Interval history since last seen: Patient has three open areas to penis. Appears that maybe catheter was lying on penis causing ulcerations. Apply bacitracin QID. LLE unchanged from admission though pain to back therefore u/s ordered negative for DVT. Exam Narrative Exam Narrative: General: obese male, laying in bed, awake and alert, pleasant and talkative, answers questions appropriately. HEENT: normocephalic, atraumatic, EOMI, tongue is dry with white patches. Neck: supple, no JVD. Cardiovascular: heart sounds regular, nontachycardic. Respiratory: respirations appear even and unlabored, lung sounds are clear on limited anterior and lateral exam. GI: +BS, large, round abdomen, soft, nontender on palpation, nondistended. Extremities: +edema to BLEs, unna boot to RLE, wounds noted to toes on bilateral feet. Objective Last Vital Signs Temp 37.1 C 12/29/21 07:16 Pulse 87 12/29/21 07:16 Resp 24 12/29/21 07:16 BP 166/70 H 12/29/21 07:16 Pulse Ox 94 12/29/21 07:16 Laboratory Results - last 24 hr 12/29/21 12/29/21 12/29/21 06:30 06:30 06:30 WBC 17.76 H Cancelled RBC 3.30 L Cancelled Hgb 9.1 L Cancelled Hct 28.0 L Cancelled MCV 84.8 Cancelled MCH 27.6 Cancelled MCHC 32.5 Cancelled RDW 15.3 H Cancelled Plt Count 356 Cancelled MPV 10.0 Cancelled Immature Gran % 7.0 Cancelled Neutrophils % 78.7 Cancelled Band Neutrophils % Cancelled Lymphocytes % 3.3 Cancelled Atypical Lymphs % Cancelled Monocytes % 6.7 Cancelled Eosinophils % 3.7 Cancelled Basophils % 0.6 Cancelled Metamyelocytes % Cancelled Myelocytes % Cancelled Promyelocytes % Cancelled Other Cells % Cancelled Nucleated RBC % 0 Cancelled Absolute Neutrophils 13.98 H Cancelled Absolute Lymphocytes 0.59 L Cancelled Absolute Monocytes 1.19 H Cancelled Absolute Eosinophils 0.66 Cancelled Absolute Basophils 0.11 Cancelled RBC Morphology Normal Cancelled Polychromasia Cancelled Hypochromasia Cancelled Poikilocytosis Cancelled Basophilic Stippling Cancelled Anisocytosis Cancelled Microcytosis Cancelled Macrocytosis Cancelled Spherocytes Cancelled Tear Drop Cells Cancelled Ovalocytes Cancelled Stomatocytes Cancelled Jackson[place] Bodies Cancelled Danny Cells/Echinocytes Cancelled Acanthocytes (Spur) Cancelled Schistocytes Cancelled Sodium 127 L Potassium 4.7 Chloride 96 L Carbon Dioxide 25.6 Anion Gap 5.4 BUN 38 H Creatinine 0.7 Estimated GFR/1.73 m2 >= 60.00 Glucose 108 H Calcium 8.1 L
--- NOTE | 2021-12-29 13:57 | W.NUTCONSULT ---
Date of service: 12/29/21 Time of Service: 13:58 Nutritional Consult ASSESSMENT: Mr. Paulson is here for IV abx for cellulitis. He is struggling to take enough by mouth to meet his nutritional needs. He reports that he just doesn't have any appetite. He will eat 1/4 of a grilled cheese. He has stopped drinking Ensure at each meal. He will drink milk. His weight was checked on 12/21/21 and was 174 kg. He is 175 cm. BMI is 56.8 kg/m2 c/w class 3 severe obesity. Looking back at his weights over the years, he has actually gradually gained weight however we do not have a weight since 8 days ago now. His adjusted ideal body weight is 110 kg. His diet order is low potassium, double protein, heart healthy. Estimated energy needs are 2500 kcal/day (REE x 1.2) Estimated protein needs are 132g to 165 g/day (1.2-1.5 g/kg/day of adjusted ideal body weight) Estimated fluid needs are 2500 ml/day (1 ml/kcal provided/day) He is likely eating 25% of his energy needs and 50% of his protein needs with the 45 g/day of liquid protein that is ordered. His potassium was 4.7 today. NUTRITIONAL DIAGNOSIS: Inadequate intake of oral calories and protein related to poor appetite. INTERVENTION: We will add a scoop of whey powder to Mr. Paulson's milk, three times daily. This addition will provide 90 grams of protein daily, given that he is not taking the Ensure much anymore. Will liberalize his diet so as not place restrictions on foods that he may be willing to eat as he will not be eating large volumes anyway. Should he start eating heartily again, we can place necessary restrictions on his diet. For now, it seems reasonable to have him on a low sodium high protein diet. Please weigh patient at least three times per week so that we can better track his nutritional status. We may have to consider nutrition support if he has lost significant weight in addition to not meeting at least 50% of his nutritional needs. If these parameters prove to classify him as malnourished then he won't heal well. MONITORING AND EVALUATION: Will continue to monitor weight and PO. Will evaluate nutrition care plan ongoing and adjust as needed. Time Spent in Nutritional Counseling and Treatment: 10 minutes
--- NOTE | 2021-12-29 14:17 | PT.INTREAT ---
Date of service: 12/29/21 Time of Service: 14:17 PT Notes Visit Reasons: Right Lower Extremity Physical Therapy Inpatient Treatment Note Date: 12/29/2021 Precautions: Fall. Standard. Activity as tolerated. Subjective: Agreeable to focusing on core strengthening, B UE and LE mobilization at ths time.? Hopefully waiting for SNF placement for long-term placement. Objective: General Observation: Appears to have some facial droop on the L lower side of face.? Supine in bed.? Steinberg catheter in place.? IV access in left UE.? High BMI. Mental Status: Alert and oriented as to person, place, time, and purpose. Able to pay attention, focus, and respond appropriately. Pain: 8-9/10 in B LE with movement Bed Mobility/Transfers: Rolling moderate assist of 2 Gait: Unable and unsafe at this time THERA EX:? With the chair feature of bariatric bed activated, worked on trunk leaning forward, to left and to right x 10 each while pulling on B leg rails.? Pull ups using overhead trapeze with abdominal bracing encouraged x 10. UE strengthening exercises using 3 lb DB. Hip IR/adduction x 10, heel slides x 10 (very minimal movement), and ankle DF/PF x 10. Worked on rolling to L using R hand pulling on the L leg rail, pull ups using overhead trapeze x 10, and hip IR/adduction x 10. Balance: Static Sitting: Fair Dynamic Sitting: Poor Static Standing: Unable and unsafe at this time Dynamic Standing: Unable and unsafe at this time Assessment:? Treatment will continue to focus on increasing trunk mobility as well as stability, B UE/LE strength, and incraesing static and dynamic sitting balance and tolerance. DISCHARGE RECOMMENDATIONS: [] ? Home with no services [] [] ? Home with services [specify] [] ? Home with outpatient PT [] [X] ? SNF for continued rehabilitation.? Patient will benefit from senior living facility placement for continued skilled physical therapy services in order to progress mobility level, strength, and balance in preparation for a safe discharge to home. [] ? [facility] [] [] ? SNF versus LTC based on ability to participate and progress [] TREATMENT CODE/TIME:? 45942 x 23 minutes beginning at 14:17 PM.
[2021-12-29 15:16] VITALS: BP 116/59; PULSE 78; RESP 20; TEMP 36.5; O2SAT 94
--- NOTE | 2021-12-29 17:09 | CHAPLAIN ---
Ezio was in bed when I visited. He said he is waiting to hear what bed offers he has for SNFs to choose from for when he is discharged from [facility]. 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
[2021-12-29] MEDS: Melatonin 3 MG TAB 9 MG PO (21:41)
[2021-12-29 23:22] VITALS: BP 148/72; PULSE 80; RESP 20; TEMP 36.9; O2SAT 92
[2021-12-30] MEDS: traMADol 50 MG TAB PO ×3 (02:09→21:01)
[2021-12-30] MEDS: CEFEPIME 2 GM in Normal Saline 100 ML IVPB ×3 (02:10→17:26)
[2021-12-30] MEDS: Nystatin 500000 UNITS/5 ML SUSP 5ML CUP PO ×5 (06:00→22:18)
[2021-12-30 06:47] VITALS: BP 135/54; PULSE 85; RESP 20; TEMP 35.9; O2SAT 96
[2021-12-30 07:23] LABS: Abs Immature Grans 0.97 10^3/uL (0.0-0.06); HCT 25.5 % (40.0-50.0); HGB 8.3 g/dL (13.5-17.5); Immature Grans % 6.5; MCH 27.4 pg (27.0-33.0); MCHC 32.5 % (32.0-36.0); MCV 84.2 fL (80-95); MPV 9.9 fL (8.0-11.0); Nucleated RBC 0 %; Platelet Count 373 10^3/uL (130-400); RBC 3.03 10^6/uL (4.36-5.78); RDW 15.1 % (11.8-14.1); RDW-SD 46.2 fL; WBC 14.92 10^3/uL (4.4-10.8)
[2021-12-30 07:46] LABS: C-Reactive Protein 16.18 mg/dL (0.0-0.3); Magnesium 2.1 mg/dL (1.8-2.4)
[2021-12-30 07:47] LABS: Absolute Eosinophil Count 0.45 10^3/uL (0.0-0.7); Absolute Lymphocyte Count 0.45 10^3/uL (1.2-3.4); Absolute Monocyte Count 0.75 10^3/uL (0.1-0.8); Absolute Neutrophil Count 13.13 10^3/uL (1.2-6.7); Bands % 10
[2021-12-30 07:48] LABS: Diff Comment Manual Differential; Metamyelocytes % 1; RBC Morphology Normal
[2021-12-30] MEDS: Acetaminophen 325 MG TAB 650 MG PO ×4 (09:44→20:46)
[2021-12-30] MEDS: amLODIPine 10 MG TAB PO (09:44)
[2021-12-30] MEDS: Ascorbic Acid 500 MG TAB PO (09:45)
[2021-12-30] MEDS: Colchicine 0.6 MG TAB PO ×2 (09:45→20:46)
[2021-12-30] MEDS: Calcium 600mg/Vit D 200U TAB 1 TAB PO (09:45)
[2021-12-30] MEDS: Furosemide 40 MG TAB PO (09:46)
[2021-12-30] MEDS: Enoxaparin 60 MG/0.6 ML SYR SC ×2 (09:46→20:46)
[2021-12-30] MEDS: Lisinopril 20 MG TAB PO (09:47)
[2021-12-30] MEDS: Nystatin CREAM 15 GM TUBE TP ×2 (09:47→20:47)
[2021-12-30] MEDS: Protein Nutritional Supplement 16 GM 1 OUNCE PACKET PO ×3 (09:48→17:25)
[2021-12-30] MEDS: Omega-3 Fatty Acids 1000 MG CAP PO (09:48)
[2021-12-30] MEDS: Vitamin E 400 UNITS CAP PO (09:49)
[2021-12-30] MEDS: Normal Saline Flush 10 ML SYR IVP ×2 (09:55→17:28)
--- NOTE | 2021-12-30 10:34 | PT.INTREAT ---
PT Notes Visit Reasons: Right Lower Extremity Inpatient Physical Therapy Treatment Note [facility] Date: 12/30/21 PRECAUTIONS:Activity as per esteban. THEREX: Pt completed UE and LE strengthening ther ex as per flow sheet. Pt completed rotation of the upper torso working toward rolling. Pt completed pull ups with the trapeze as per flow sheet, and crunches to work on his abdominal strength. ASSESSMENT: Pt tolerated today's session well. Pt does require sort rest periods due to fatigue. PLAN: Cont as per PT POC. TREATMENT CODE/TIME: 9:45-10:10 (39) TPx2
[2021-12-30] MEDS: Nystatin POWDER 60 GM JAR TP ×2 (12:07→20:47)
--- NOTE | 2021-12-30 13:48 | W.PM.PROGNOT ---
Date of Service Date of service: 12/30/21 Time of Service: 13:48 Assessment and Plan Assessment and plan (1) Gouty arthritis of right knee: Status: Acute Assessment and plan: improvement of the knee bilaterally especially on the right. No erythema or pain with palpation. States just chronic pain. Erythema has receded, margins are now clearing. Some pink behind the knee. Continue prednisone burst for a total of 6 days and continue colchicine for 2 weeks then start on alopurinol. WBC elevated likely in setting of steroids He is currently on dapto and cefepime which appears clinically to be working despite rising leukocytosis. Repeat CRP improved. Blood cultures no growth Knee aspiration anerobic and aerobic fluid no growth at this time. (2) Bacteremia: Status: Resolved Assessment and plan: Cleared bacteremia, on cefepime and dapto will need at least 2 weeks or longer of antiobiotics also as above Cleared cx on 12/20 afebrile, continue to monitor. (3) Cellulitis: Status: Acute Assessment and plan: improving with in the margins. now pink behind knee only. no erythema to knee or surrounding area Qualifiers: Laterality: right Site of cellulitis of extremity: lower extremity (4) Edema: Status: Chronic Assessment and plan: continue lasix (5) Essential hypertension: Status: Chronic Assessment and plan: continue home meds, bp still in 150's to 180's will increase amlodipine to 10 mg. continue to monitor. (6) DVT prophylaxis: Status: Acute Assessment and plan: weight based enoxaparin per pharmacy recommendations (7) Discharge planning issues: Status: Acute Assessment and plan: anticipate at least 2 weeks of IV antibiotics, in addition to skilled rehabilitation facility prior to going home discussed with dr. Mustafa Exam Const General: cooperative and ill appearing chronically Nutritional Appearance: obese morbidly obese Orientation: alert, awake and oriented x3 HENMT Head: normal to inspection, normocephalic and atraumatic Mouth: moist mucous membranes abnormal (dry) Chest Chest: normal inspection of the chest Resp Effort & Inspection: normal respiratory effort Auscultation: diminished lung sounds (bases) Cardio Rate: regular rate Rhythm: regular rhythm GI Inspection: large pannus and obesity Palpation: soft General: other (grant to gravity draining clear yellow medium urine) Skin Rashes: rashes noted (under breast, pannus and right lower extremity) and other (RLE: erythematous well within skin markings and markedly improved) Neuro General: patient alert, patient awake, patient oriented x3 and no focal motor deficits Cognition: normal cognition Speech: speech normal Gait: other (unable to bear weight) Motor: muscle tone normal throughout and strength abnormal (1/5 bilateral lower) Extrem General: edema Laterality: bilateral (right greater than left. ) Psych Mental Status: mental status grossly normal Speech and Movement: speech and movement normal Mood: congruent mood Affect: normal affect Attitude: cooperative Thought Process: normal Thought Content: normal Insight: insight good Judgment: judgment good Objective Last Vital Signs Temp 35.9 C L 12/30/21 06:47 Pulse 85 12/30/21 06:47 Resp 20 12/30/21 06:47 BP 135/54 L 12/30/21 06:47 Pulse Ox 96 12/30/21 06:47 Laboratory Results - last 24 hr 12/30/21 12/30/21 06:45 07:00 WBC 14.92 H RBC 3.03 L Hgb 8.3 L Hct 25.5 L MCV 84.2 MCH 27.4 MCHC 32.5 RDW 15.1 H Plt Count 373 MPV 9.9 Immature Gran % 6.5 Neutrophils % 78.0 Band Neutrophils % 10 Lymphocytes % 3.0 Monocytes % 5.0 Eosinophils % 3.0 Basophils % 0.0 Metamyelocytes % 1 Nucleated RBC % 0 Absolute Neutrophils 13.13 H Absolute Lymphocytes 0.45 L Absolute Monocytes 0.75 Absolute Eosinophils 0.45 Absolute Basophils 0.00 RBC Morphology Normal Magnesium 2.1 C-Reactive Protein 16.18 H
[2021-12-30 15:05] VITALS: BP 148/67; PULSE 89; RESP 16; TEMP 37; O2SAT 96
[2021-12-30] MEDS: Melatonin 3 MG TAB 9 MG PO (21:00)
[2021-12-30 23:16] VITALS: BP 151/70; PULSE 89; RESP 16; TEMP 36.4; O2SAT 95
[2021-12-31] MEDS: CEFEPIME 2 GM in Normal Saline 100 ML IVPB ×3 (01:28→17:36)
[2021-12-31] MEDS: Normal Saline Flush 10 ML SYR IVP ×2 (01:29→11:25)
[2021-12-31] MEDS: traMADol 50 MG TAB PO ×4 (02:46→21:59)
[2021-12-31] MEDS: Nystatin 500000 UNITS/5 ML SUSP 5ML CUP PO ×4 (05:42→21:58)
[2021-12-31 07:35] VITALS: BP 136/70; PULSE 87; RESP 19; TEMP 37.1; O2SAT 96
[2021-12-31] MEDS: Nystatin POWDER 60 GM JAR TP ×2 (08:40→20:33)
[2021-12-31] MEDS: Vitamin E 400 UNITS CAP PO (08:41)
[2021-12-31] MEDS: Nystatin CREAM 15 GM TUBE TP ×2 (08:41→20:32)
[2021-12-31] MEDS: Colchicine 0.6 MG TAB PO ×2 (08:41→20:27)
[2021-12-31] MEDS: Protein Nutritional Supplement 16 GM 1 OUNCE PACKET PO ×3 (08:41→16:46)
[2021-12-31] MEDS: Omega-3 Fatty Acids 1000 MG CAP PO (08:41)
[2021-12-31] MEDS: Lisinopril 20 MG TAB PO (08:42)
[2021-12-31] MEDS: Ascorbic Acid 500 MG TAB PO (08:42)
[2021-12-31] MEDS: amLODIPine 10 MG TAB PO (08:42)
[2021-12-31] MEDS: Acetaminophen 325 MG TAB 650 MG PO ×4 (08:42→20:27)
[2021-12-31] MEDS: Furosemide 40 MG TAB PO (08:42)
[2021-12-31] MEDS: Calcium 600mg/Vit D 200U TAB 1 TAB PO (08:42)
--- NOTE | 2021-12-31 09:58 | W.PM.PROGNOT ---
Date of Service Date of service: 12/31/21 Time of Service: 09:58 Assessment and Plan Assessment and plan (1) Gouty arthritis of right knee: Status: Acute Assessment and plan: improvement of the knee bilaterally especially on the right. No erythema or pain with palpation. States just chronic pain. Erythema has receded, margins are now clearing. Some pink behind the knee. Continue prednisone burst for a total of 6 days and continue colchicine for 2 weeks then start on alopurinol. WBC elevated likely in setting of steroids He is currently on dapto and cefepime which appears clinically to be working despite rising leukocytosis. Repeat CRP improved. Blood cultures no growth Knee aspiration anerobic and aerobic fluid no growth at this time. (2) Bacteremia: Status: Resolved Assessment and plan: Cleared bacteremia, on cefepime and dapto will need at least 2 weeks or longer of antiobiotics also as above Cleared cx on 12/20 afebrile, continue to monitor. (3) Cellulitis: Status: Acute Assessment and plan: improving with in the margins. now pink behind knee only. no erythema to knee or surrounding area Qualifiers: Laterality: right Site of cellulitis of extremity: lower extremity (4) Edema: Status: Chronic Assessment and plan: continue lasix (5) Essential hypertension: Status: Chronic Assessment and plan: continue home meds, bp still in 150's to 180's will increase amlodipine to 10 mg. continue to monitor. (6) DVT prophylaxis: Status: Acute Assessment and plan: weight based enoxaparin per pharmacy recommendations (7) Discharge planning issues: Status: Acute Assessment and plan: anticipate at least 2 weeks of IV antibiotics, in addition to skilled rehabilitation facility prior to going home discussed with dr. Mustafa Subjective Subjective Interval history since last seen: feels fatigued Exam Const General: cooperative and ill appearing chronically Nutritional Appearance: obese morbidly obese Orientation: alert, awake and oriented x3 HENMT Head: normal to inspection, normocephalic and atraumatic Mouth: moist mucous membranes abnormal (dry) Chest Chest: normal inspection of the chest Resp Effort & Inspection: normal respiratory effort Auscultation: diminished lung sounds (bases) Cardio Rate: regular rate Rhythm: regular rhythm GI Inspection: large pannus and obesity Palpation: soft General: other (grant to gravity draining clear yellow medium urine) Skin Rashes: rashes noted (under breast, pannus and right lower extremity) and other (RLE: erythematous well within skin markings and markedly improved) Neuro General: patient alert, patient awake, patient oriented x3 and no focal motor deficits Cognition: normal cognition Speech: speech normal Gait: other (unable to bear weight) Motor: muscle tone normal throughout and strength abnormal (1/5 bilateral lower) Extrem General: edema Laterality: bilateral (right greater than left. ) Psych Mental Status: mental status grossly normal Speech and Movement: speech and movement normal Mood: congruent mood Affect: normal affect Attitude: cooperative Thought Process: normal Thought Content: normal Insight: insight good Judgment: judgment good Objective Last Vital Signs Temp 37.1 C 12/31/21 07:35 Pulse 87 12/31/21 07:35 Resp 19 12/31/21 07:35 BP 136/70 12/31/21 07:35 Pulse Ox 96 12/31/21 07:35
[2021-12-31 10:34] LABS: HCT 23.1 % (40.0-50.0); HGB 7.5 g/dL (13.5-17.5); MCH 27.4 pg (27.0-33.0); MCHC 32.5 % (32.0-36.0); MCV 84.3 fL (80-95); MPV 9.5 fL (8.0-11.0); Nucleated RBC 0 %; Platelet Count 360 10^3/uL (130-400); RBC 2.74 10^6/uL (4.36-5.78); RDW-SD 46.2 fL; WBC 13.56 10^3/uL (4.4-10.8)
--- NOTE | 2021-12-31 10:41 | PT.INTREAT ---
PT Notes Visit Reasons: Right Lower Extremity Inpatient Physical Therapy Treatment Note [facility] Date: 12/31/21 PRECAUTIONS: SUBJECTIVE: Pt reports that he had a few bowel movement in the night which made him having to roll in bed a lot and be cleaned up in the night so he did not get much sleep and is fatigued today and not sure how much he will be able to accomplish during his session today. OBJECTIVE: THEREX: Pt commpleted UE and LE strengthening ther ex as per flow sheet. Pt was not able to tolerate his rotations, pull ups, or crunches due to fatigue today. STAIRS:[] ASSESSMENT: Pt was very tired today and not able to tolerate much for PT today. PLAN: Cont as per PT POC. TREATMENT CODE/TIME: 9-9:15 (15) TP
[2021-12-31 10:49] LABS: Absolute Eosinophil Count 0.68 10^3/uL (0.0-0.7); Absolute Lymphocyte Count 0.68 10^3/uL (1.2-3.4); Absolute Monocyte Count 0.54 10^3/uL (0.1-0.8); Absolute Neutrophil Count 11.66 10^3/uL (1.2-6.7); Atypical Lymphocytes % 1; Bands % 3; Diff Comment Manual Differential; RBC Morphology Normal
[2021-12-31 10:54] LABS: ALT 75 U/L (16-63); AST 45 U/L (15-37); Albumin 1.4 g/dL (3.4-5.0); Alkaline Phosphatase 93 U/L (46-116); Anion Gap 6.3 mmol/L (3-11); BUN 27 mg/dL (7-18); Bilirubin, Total 0.3 mg/dL (0.2-1.0); CO2 24.7 mmol/L (21.0-32.0); CREATININE 0.6 mg/dL (0.70-1.30); Calcium 7.7 mg/dL (8.5-10.1); Chloride 91 mmol/L (98-107); Glucose 138 mg/dL (74-106); Total Protein 5.8 g/dL (6.4-8.2)
[2021-12-31 10:56] LABS: Sodium 122 mmol/L (136-145)
[2021-12-31 11:04] LABS: INR 1.2 (0.9-1.1); PTT Activated 31.9 sec (21.0-27.5); Prothrombin Time 11.9 sec (9.3-11.0)
[2021-12-31] MEDS: Pantoprazole 40 MG VIAL 80 MG IVP (11:24)
[2021-12-31 15:30] VITALS: BP 123/66; PULSE 89; RESP 20; TEMP 36.6; O2SAT 98
[2021-12-31 20:05] LABS: HCT 26.1 % (40.0-50.0); HGB 8.3 g/dL (13.5-17.5)
[2021-12-31] MEDS: Pantoprazole 40 MG TABCR PO (20:27)
[2021-12-31] MEDS: Melatonin 3 MG TAB 9 MG PO (21:58)
[2021-12-31 23:43] VITALS: BP 135/65; PULSE 86; RESP 18; TEMP 36.7; O2SAT 97
[2022-01-01] MEDS: CEFEPIME 2 GM in Normal Saline 100 ML IVPB ×3 (02:00→17:46)
[2022-01-01] MEDS: Nystatin 500000 UNITS/5 ML SUSP 5ML CUP PO ×5 (05:33→21:02)
[2022-01-01] MEDS: traMADol 50 MG TAB PO ×2 (05:33→21:01)
[2022-01-01 06:59] LABS: ESR 64 mm/hr (0-20)
[2022-01-01 07:00] LABS: Abs Immature Grans 0.53 10^3/uL (0.0-0.06); Absolute Basophil Count 0.06 10^3/uL (0.0-0.2); Absolute Eosinophil Count 0.46 10^3/uL (0.0-0.7); Absolute Lymphocyte Count 0.46 10^3/uL (1.2-3.4); Absolute Monocyte Count 0.91 10^3/uL (0.1-0.8); Basophils % 0.5; Eosinophils % 3.7; HCT 23.7 % (40.0-50.0); HGB 7.5 g/dL (13.5-17.5); Immature Grans % 4.2; Lymphocytes % 3.7; MCH 26.7 pg (27.0-33.0); MCHC 31.6 % (32.0-36.0); MCV 84.3 fL (80-95); MPV 9.3 fL (8.0-11.0); Monocytes % 7.3; Neutrophils % 80.6; Nucleated RBC 0 %; Platelet Count 355 10^3/uL (130-400); RBC 2.81 10^6/uL (4.36-5.78); RDW 15.1 % (11.8-14.1); RDW-SD 46.2 fL; WBC 12.53 10^3/uL (4.4-10.8)
[2022-01-01 07:31] LABS: Anion Gap 4.5 mmol/L (3-11); BUN 24 mg/dL (7-18); C-Reactive Protein 18.24 mg/dL (0.0-0.3); CO2 26.5 mmol/L (21.0-32.0); CREATININE 0.6 mg/dL (0.70-1.30); Calcium 8.2 mg/dL (8.5-10.1); Chloride 97 mmol/L (98-107); Glucose 113 mg/dL (74-106); Potassium 4.4 mmol/L (3.5-5.1); Sodium 128 mmol/L (136-145)
[2022-01-01 07:32] LABS: Iron 18 ug/dL (65-175); Total Iron Binding Capacity 153 ug/dL (250-450); Transferrin Sat 12 % (20-55)
[2022-01-01 07:36] LABS: ALT 70 U/L (16-63); AST 40 U/L (15-37); Albumin 1.5 g/dL (3.4-5.0); Alkaline Phosphatase 95 U/L (46-116); Bilirubin, Direct 0.2 mg/dL (0.0-0.2); Bilirubin, Total 0.4 mg/dL (0.2-1.0); Total Protein 6.2 g/dL (6.4-8.2)
[2022-01-01 07:41] VITALS: BP 129/52; PULSE 84; RESP 18; TEMP 37.2; O2SAT 93
[2022-01-01] MEDS: amLODIPine 10 MG TAB PO (07:47)
[2022-01-01] MEDS: Acetaminophen 325 MG TAB 650 MG PO ×4 (07:47→21:03)
[2022-01-01] MEDS: Calcium 600mg/Vit D 200U TAB 1 TAB PO (07:47)
[2022-01-01] MEDS: Vitamin E 400 UNITS CAP PO (07:47)
[2022-01-01] MEDS: Docusate Sodium 100 MG CAP PO ×2 (07:47→21:02)
[2022-01-01] MEDS: Colchicine 0.6 MG TAB PO ×2 (07:47→21:02)
[2022-01-01] MEDS: Omega-3 Fatty Acids 1000 MG CAP PO (07:47)
[2022-01-01] MEDS: Polyethylene Glycol 3350 17 GM PACKET PO (07:47)
[2022-01-01] MEDS: Protein Nutritional Supplement 16 GM 1 OUNCE PACKET PO ×3 (07:47→16:15)
[2022-01-01] MEDS: Pantoprazole 40 MG TABCR PO ×2 (07:48→21:02)
[2022-01-01] MEDS: Furosemide 40 MG TAB PO (07:48)
[2022-01-01] MEDS: Lisinopril 20 MG TAB PO (07:48)
[2022-01-01] MEDS: Ascorbic Acid 500 MG TAB PO (07:48)
[2022-01-01] MEDS: Nystatin CREAM 15 GM TUBE TP ×2 (07:49→21:05)
[2022-01-01] MEDS: Nystatin POWDER 60 GM JAR TP ×2 (07:49→21:06)
[2022-01-01 07:59] LABS: Ferritin 953 ng/mL (26-388)
--- NOTE | 2022-01-01 08:20 | W.NUTRFU ---
Date of service: 01/01/22 Time of Service: 08:20 Nutrition Note NOTE: Of note, Mr. Paulson has been taking Sam supplements twice a day since Saturday. Sam is a glutamine and arginine liquid supplement for wound healing.
--- NOTE | 2022-01-01 08:46 | PDOC.CMPRO ---
- If Service Date Differs Date of service: 01/01/22 Time of Service: 08:46 Care Management Progress Note S/O: Elan was sitting up in bed when CM met with him. He remains pleasant and engaged easily with CM. Elan stated that he is feeling much better than when he was first admitted. His leg is looking and feeling much better. He remains afebrile and his vital signs are stable. Elan informed CM that he had an aspiration done on his right knee a week or so ago and a lot of fluid was removed. He stated that it appears to be related to gout and he has felt much improvement since. Elan will need short term rehab before returning home, if that is the plan. 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 His weight has been identified as a barrier by many facilities as they do not have the bariatric equipment needed to care for him safely. A: Ezio is a 71 year old man admitted on 12/18/21 with cellulitis and fever P:Ezio will likely be transferred to a SNF for short term rehab prior to returning home. He will need to remain at [facility] for IVAB before he can transfer to a SNF. Referrals were sent to a multitude of facilities in both [place] and [place]. Elan's weight has been identified as a barrier by many facilities as they do not have the bariatric equipment to safely care for him. CM will continue to support Elan and assess for ongoing discharge concerns.
--- NOTE | 2022-01-01 09:15 | OT.INTREAT ---
Occupational Therapy Notes Occupational Therapy Inpatient Treatment Note Date: 01/01/22 PRECAUTIONS: Fall, standard, full SUBJECTIVE:?Pt is receptive to performance of his Upper body ADLS. He notes that his weekend was ok. OBJECTIVE:? PAIN:no c/o pain during OT session? ? BATHING:?sitting in bed with max (A) set up/clean up and max (A) trunk support Upper Body: (I) face, top of abdomen and underarms/arms DRESSING:?? lying in bed in the sitting position with max (A) back support ? ? Upper Extremity: min (A) [facility] gown with vc for functional (I) Plan: OT will attempt to progress pt at next session, however if pt is unable to progress his functional (I) OT will discharge pt at his highest functional level at this time. ? TREATMENT CODES/TIME:?49823, 15 minutes (09:00)? Carmen Romero OTR/[facility]
--- NOTE | 2022-01-01 10:52 | W.NUTRFU ---
Date of service: 01/01/22 Time of Service: 10:52 Nutrition Note NOTE: Met with Ezio. He reports better appetite over weekend. Able to take liquid protein TID (45 g protein), along with milk supplemented with whey protein. Will drink ensure plus if unable to complete meal. Meeting 100% of protein needs at this time, 75% of caloric needs. Will continue to follow and support for optimal intake. Time Spent in Nutritional Counseling and Treatment: 0
[2022-01-01] MEDS: Ferrous Sulfate 325 MG TAB PO ×2 (13:42→21:05)
[2022-01-01 15:00] VITALS: BP 145/80; PULSE 83; RESP 18; TEMP 36.7; O2SAT 97
--- NOTE | 2022-01-01 15:36 | PGE_ITS ---
Date of Service Date of service: 01/01/22 Time of Service: 15:36 Assessment and Plan Assessment and plan (1) Gouty arthritis of right knee: Status: Acute Assessment and plan: improvement of the knee bilaterally especially on the right. No erythema or pain with palpation. States just chronic pain. Erythema has receded, margins are now clearing. Some pink behind the knee. Continue prednisone burst for a total of 6 days and continue colchicine for 2 weeks then start on alopurinol. WBC elevated likely in setting of steroids He is currently on dapto and cefepime which appears clinically to be working despite rising leukocytosis. Repeat CRP improved. Blood cultures no growth Knee aspiration anerobic and aerobic fluid no growth at this time. (2) Bacteremia: Status: Resolved Assessment and plan: Cleared bacteremia, on cefepime and dapto will need at least 2 weeks or longer of antiobiotics also as above Cleared cx on 12/20 afebrile, continue to monitor. (3) Cellulitis: Status: Acute Assessment and plan: improving with in the margins. now pink behind knee only. no erythema to knee or surrounding area Qualifiers: Laterality: right Site of cellulitis of extremity: lower extremity (4) Edema: Status: Chronic Assessment and plan: continue lasix (5) Essential hypertension: Status: Chronic Assessment and plan: continue home meds, bp still in 150's to 180's will increase amlodipine to 10 mg. continue to monitor. (6) DVT prophylaxis: Status: Acute Assessment and plan: weight based enoxaparin per pharmacy recommendations (7) Discharge planning issues: Status: Acute Assessment and plan: anticipate at least 2 weeks of IV antibiotics, in addition to skilled rehabilitation facility prior to going home discussed with dr. Mustafa Subjective Subjective Patient reports: no new complaints, feels better, tolerating liquids well, tolerating a regular diet and afebrile; denies diarrhea or shortness of breath Exam Const General: cooperative, comfortable, no acute distress and ill appearing chronically Nutritional Appearance: obese morbidly obese Orientation: alert, awake and oriented x3 HENMT Head: normal to inspection, normocephalic and atraumatic Mouth: moist mucous membranes and moist mucous membranes abnormal (dry) Chest Chest: normal inspection of the chest Resp Effort & Inspection: normal respiratory effort, able to speak in complete sentences, audible wheezes, no cough and no respiratory distress Auscultation: diminished lung sounds (bases) Cardio Rate: regular rate Rhythm: regular rhythm GI Inspection: large pannus and obesity Palpation: soft General: other (grant to gravity draining clear yellow medium urine) Skin General skin exam: erythema (right posterior knee medial aspect), excoriation (left lower extremity), induration (right posterior knee) and turgor decreased Rashes: rashes noted (under breast, pannus and right lower extremity) and other (RLE: erythematous well within skin markings and markedly improved) Wounds: wounds noted (multiple scabbed areas to body. Left knee) Neuro General: patient alert, patient awake, patient oriented x3 and no focal motor deficits Cranial Nerves: CN's II-XI intact bilaterally Cognition: normal cognition Speech: speech normal Gait: other (unable to bear weight) Motor: muscle tone normal throughout and strength abnormal (1/5 bilateral lower) Extrem General: abnormal to inspection, abnormal ROM, clubbing, cyanosis or edema noted, edema Laterality: bilateral (right greater than left. ), pedal edema b ilaterally and other (erythema) Right lower extremity: edema; No abnormal to inspection and ROM limited (Unna boot dressing in place) Left lower extremity: edema; No abnormal ROM Psych Mental Status: mental status grossly normal Speech and Movement: speech and movement normal Mood: congruent mood Affect: normal affect Attitude: cooperative Thought Process: normal Thought Content: normal Insight: insight good Judgment: judgment good Objective Last Vital Signs Temp 36.7 C 01/01/22 15:00 Pulse 83 01/01/22 15:00 Resp 18 01/01/22 15:00 BP 145/80 H 01/01/22 15:00 Pulse Ox 97 01/01/22 15:00 Laboratory Results - last 24 hr 12/31/21 01/01/22 01/01/22 20:00 06:35 06:35 WBC RBC Hgb 8.3 L Hct 26.1 L MCV MCH MCHC RDW Plt Count MPV Immature Gran % Neutrophils % Lymphocytes % Monocytes % Eosinophils % Basophils % Nucleated RBC % Absolute Neutrophils Absolute Lymphocytes Absolute Monocytes Absolute Eosinophils Absolute Basophils ESR 64 H Sodium 128 L Potassium 4.4 Chloride 97 L Carbon Dioxide 26.5 Anion Gap 4.5 BUN 24 H Creatinine 0.6 L Estimated GFR/1.73 m2 >= 60.00 Glucose 113 H Calcium 8.2 L Iron TIBC Transferrin % Sat Ferritin Total Bilirubin Conjugated Bilirubin AST ALT Alkaline Phosphatase C-Reactive Protein 18.24 H Total Protein Albumin 01/01/22 01/01/22 01/01/22 06:35 06:35 06:35 WBC 12.53 H RBC 2.81 L Hgb 7.5 L Hct 23.7 L MCV 84.3 MCH 26.7 L MCHC 31.6 L RDW 15.1 H Plt Count 355 MPV 9.3 Immature Gran % 4.2 Neutrophils % 80.6 Lymphocytes % 3.7 Monocytes % 7.3 Eosinophils % 3.7 Basophils % 0.5 Nucleated RBC % 0 Absolute Neutrophils 10.10 H Absolute Lymphocytes 0.46 L Absolute Monocytes 0.91 H Absolute Eosinophils 0.46 Absolute Basophils 0.06 ESR Sodium Potassium Chloride Carbon Dioxide Anion Gap BUN Creatinine Estimated GFR/1.73 m2 Glucose Calcium Iron 18 L TIBC 153 L Transferrin % Sat 12 L Ferritin 953 H Total Bilirubin 0.4 Conjugated Bilirubin 0.2 AST 40 H ALT 70 H Alkaline Phosphatase 95 C-Reactive Protein Total Protein 6.2 L Albumin 1.5 L
--- NOTE | 2022-01-01 15:40 | PT.INTREAT ---
Date of service: 01/01/22 Time of Service: 14:15 PT Notes Visit Reasons: Right Lower Extremity Inpatient Physical Therapy Treatment Note [facility] Date: 01/01/2022 PRECAUTIONS: Activities as tolerated. SUBJECTIVE: Stated he would like to work his UE this afternoon. OBJECTIVE: PAIN: Sensitivity with assisted LE movement for repositioning. THEREX: Performed bed exercises consisting of quad sets, shoulder horizontal abd/adduction, shoulder flexion and bicep curls with 3# dumbbells. Each exercise was performed for 10 reps. Did require gentle assist to reposition bilateral knees for quad sets. ASSESSMENT: Tolerated afternoon session fair, with good attitude with performing exercises. PLAN: Continue with current POC, with focus on improved ADL function. TREATMENT CODE/TIME: [id number], 2:15 pm to 2:30 pm (15')
[2022-01-01] MEDS: IRON SUCROSE COMPLEX 200 MG in Normal Saline 100 ML 400 MG IVPB (16:15)
[2022-01-01] MEDS: Normal Saline Flush 10 ML SYR IVP (16:15)
--- NOTE | 2022-01-01 18:28 | PTTR_ITS ---
Date of service: 01/01/22 Time of Service: 11:20 PT Notes Visit Reasons: Right Lower Extremity Physical Therapy Inpatient Treatment Note Date: 01/01/2022 Precautions: Fall. Standard. Activity as tolerated. Subjective: Agreeable to PT session. Continues to be anxious of moving B LE. Objective: General Observation: Facial droop on the L lower side of face.? Supine in bed.? Steinberg catheter in place.? IV access in left UE.? High BMI. Mental Status: Alert and oriented as to person, place, time, and purpose. Able to pay attention, focus, and respond appropriately. Pain: 8-9/10 in B LE with movement Bed Mobility/Transfers: Rolling moderate assist of 2 Gait: Unable and unsafe at this time THERA EX:? With re-adjustment of HOB, continued to work on trunk leaning forward, to left and to right x 10 each while pulling on B leg rails.? Pull ups using overhead trapeze with abdominal bracing encouraged x 10. UE strengthening exercises using 3 lb DB. Hip IR/adduction x 10, heel slides x 10 (very minimal movement), and ankle DF/PF x 10. ? Worked on rolling to L using R hand pulling on the L leg rail, pull ups using overhead trapeze x 10, and hip IR/adduction x 10. Balance: Static Sitting: Fair Dynamic Sitting: Poor Static Standing: Unable and unsafe at this time Dynamic Standing: Unable and unsafe at this time Assessment:? Treatment will continue to focus on increasing trunk mobility as well as stability, B UE/LE strength, and increasing static and dynamic sitting balance and tolerance. DISCHARGE RECOMMENDATIONS: [] ? Home with no services [] [] ? Home with services [specify] [] ? Home with outpatient PT [] [X] ? SNF for continued rehabilitation.? Patient will benefit [facility] for continued skilled physical therapy services in order to progress mobility level, strength, and balance in preparation for a safe discharge to home. [] ? Paralegal Care [] [] ? SNF versus LTC based on ability to participate and progress [] TREATMENT CODE/TIME:? 75879 x 25 minutes beginning at 11:20 AM.
[2022-01-01] MEDS: Melatonin 3 MG TAB 9 MG PO (21:03)
[2022-01-01 23:15] VITALS: BP 145/85; PULSE 87; RESP 18; TEMP 36.6; O2SAT 97
[2022-01-02] MEDS: CEFEPIME 2 GM in Normal Saline 100 ML IVPB ×3 (01:23→18:11)
[2022-01-02] MEDS: MORPHine 2 MG/ML SYR IVP (02:15)
[2022-01-02] MEDS: Nystatin 500000 UNITS/5 ML SUSP 5ML CUP PO ×5 (05:09→21:14)
[2022-01-02 06:34] VITALS: BP 160/72; PULSE 92; RESP 20; TEMP 37.6; O2SAT 96
[2022-01-02 06:59] LABS: Abs Immature Grans 0.57 10^3/uL (0.0-0.06); Absolute Basophil Count 0.06 10^3/uL (0.0-0.2); Absolute Eosinophil Count 0.45 10^3/uL (0.0-0.7); Absolute Lymphocyte Count 0.49 10^3/uL (1.2-3.4); Basophils % 0.5; Eosinophils % 3.5; HCT 24.4 % (40.0-50.0); HGB 7.9 g/dL (13.5-17.5); Immature Grans % 4.4; Lymphocytes % 3.8; MCH 27.4 pg (27.0-33.0); MCHC 32.4 % (32.0-36.0); MCV 84.7 fL (80-95); MPV 9.4 fL (8.0-11.0); Monocytes % 7.8; Nucleated RBC 0 %; Platelet Count 395 10^3/uL (130-400); RBC 2.88 10^6/uL (4.36-5.78); RDW-SD 46.4 fL; WBC 12.87 10^3/uL (4.4-10.8)
[2022-01-02 07:16] LABS: Anion Gap 7.1 mmol/L (3-11); BUN 19 mg/dL (7-18); CO2 24.9 mmol/L (21.0-32.0); CREATININE 0.5 mg/dL (0.70-1.30); Calcium 8.1 mg/dL (8.5-10.1); Chloride 95 mmol/L (98-107); Glucose 116 mg/dL (74-106); Potassium 3.8 mmol/L (3.5-5.1); Sodium 127 mmol/L (136-145)
[2022-01-02 07:31] LABS: Diff Comment Diff Reviewed; RBC Morphology Normal
[2022-01-02] MEDS: Vitamin E 400 UNITS CAP PO (08:25)
[2022-01-02] MEDS: Omega-3 Fatty Acids 1000 MG CAP PO (08:26)
[2022-01-02] MEDS: Protein Nutritional Supplement 16 GM 1 OUNCE PACKET PO ×3 (08:26→16:52)
[2022-01-02] MEDS: Colchicine 0.6 MG TAB PO ×2 (08:26→20:01)
[2022-01-02] MEDS: Calcium 600mg/Vit D 200U TAB 1 TAB PO (08:26)
[2022-01-02] MEDS: Acetaminophen 325 MG TAB 650 MG PO ×4 (08:26→20:00)
[2022-01-02] MEDS: Ferrous Sulfate 325 MG TAB PO ×2 (08:26→20:00)
[2022-01-02] MEDS: Ascorbic Acid 500 MG TAB PO (08:26)
[2022-01-02] MEDS: Pantoprazole 40 MG TABCR PO ×2 (08:26→20:01)
[2022-01-02] MEDS: Furosemide 40 MG TAB PO (08:26)
[2022-01-02] MEDS: amLODIPine 10 MG TAB PO (08:26)
[2022-01-02] MEDS: Lisinopril 20 MG TAB PO (08:26)
[2022-01-02] MEDS: Normal Saline Flush 10 ML SYR IVP ×4 (08:27→20:01)
[2022-01-02] MEDS: Nystatin CREAM 15 GM TUBE TP ×2 (08:27→20:03)
[2022-01-02] MEDS: Nystatin POWDER 60 GM JAR TP ×2 (08:28→20:02)
[2022-01-02] MEDS: traMADol 50 MG TAB PO ×2 (10:21→21:14)
[2022-01-02 15:08] VITALS: BP 160/71; PULSE 89; RESP 18; TEMP 36.7; O2SAT 95
--- NOTE | 2022-01-02 15:27 | PT.INTREAT ---
PT Notes Visit Reasons: Right Lower Extremity Inpatient Physical Therapy Treatment Note [facility] Date: 01/02/22 SUBJECTIVE: Ezio states that he is doing ok. He offers no specific complaints to me today. OBJECTIVE: [] THEREX: general bed exercises with focus on UE, as per flowsheet. Pt declined use of weights but was able to do more reps. ASSESSMENT: tolerated session well without complaints of pain. Pt willing to do exercises, however did not seem motivated. PLAN: will continue to progress his strength to tolerance following PT POC> TREATMENT CODE/TIME: 15 min [id number].
--- NOTE | 2022-01-02 16:21 | CMPROGNOTE_ITS ---
Care Management Progress Note S/O: Zayra Elaine reported only being able to move forward with referral if Elan was less than 350 lbs or a 2 assist if over than 350lbs. CM shared this information with the team, referral faxed to [facility] was declined as well. CM continues to attempt SNF coordination, if none is found anticipate Elan will transition to [facility], LTM katlyn will need to be completed as well. A: Ezio is a 71 year old man admitted on 12/18/21 with cellulitis and fever P: Anticipate Ezio will require SNF after competition of IV ABX before. U pdated referrals faxed; both in [place] and [place]. Elan's weight has been identified as a barrier by many facilities as they do not have the equipment to safely care for him; he continues to require a robert lift with multiple staff supporting.
--- NOTE | 2022-01-02 17:09 | PGE_ITS ---
Date of Service Date of service: 01/02/22 Time of Service: 17:10 Assessment and Plan Assessment and plan (1) Gouty arthritis of right knee: Status: Acute Assessment and plan: improvement of the knee bilaterally especially on the right. No erythema or pain with palpation. States just chronic pain. Erythema has receded, margins are now clearing. Some pink behind the knee. Continue prednisone burst for a total of 6 days and continue colchicine for 2 weeks then start on alopurinol. WBC elevated likely in setting of steroids He is currently on dapto and cefepime which appears clinically to be working despite rising leukocytosis. Repeat CRP improved. Blood cultures no growth Knee aspiration anerobic and aerobic fluid no growth at this time. (2) Bacteremia: Status: Resolved Assessment and plan: Cleared bacteremia, on cefepime and dapto will need at least 2 weeks or longer of antiobiotics also as above Cleared cx on 12/20 afebrile, continue to monitor. (3) Cellulitis: Status: Acute Assessment and plan: improving with in the margins. now pink behind knee only. no erythema to knee or surrounding area Qualifiers: Site of cellulitis of extremity: lower extremity Laterality: right (4) Edema: Status: Chronic Assessment and plan: continue lasix (5) Essential hypertension: Status: Chronic Assessment and plan: continue home meds, bp still in 150's to 180's will increase amlodipine to 10 mg. continue to monitor. (6) DVT prophylaxis: Status: Acute Assessment and plan: weight based enoxaparin per pharmacy was discontinued several days ago for drop in H&H and heme positive stool. H&H stable. (7) Discharge planning issues: Status: Acute Assessment and plan: anticipate at least 2 weeks of IV antibiotics which would be completed tomorrow 01/03, in addition to skilled rehabilitation facility prior to going home discussed with dr. Mustafa Subjective Subjective Patient reports: no new complaints, feels better, tolerating liquids well, tolerating a regular diet and diarrhea Exam Const General: cooperative, comfortable, no acute distress and ill appearing chronically Nutritional Appearance: obese morbidly obese Orientation: alert, awake and oriented x3 HENMT Head: normal to inspection, normocephalic and atraumatic Mouth: moist mucous membranes and moist mucous membranes abnormal (dry) Chest Chest: normal inspection of the chest Resp Effort & Inspection: normal respiratory effort, able to speak in complete sentences, audible wheezes, no cough and no respiratory distress Auscultation: diminished lung sounds (bases) Cardio Rate: regular rate Rhythm: regular rhythm GI Inspection: large pannus and obesity Palpation: soft General: other (grant to gravity draining clear yellow medium urine) Skin General skin exam: erythema (right posterior knee medial aspect), excoriation (left lower extremity), induration (right posterior knee) and turgor decreased Rashes: rashes noted (under breast, pannus and right lower extremity) and other (RLE: erythematous well within skin markings and markedly improved) Wounds: wounds noted (multiple scabbed areas to body. Left knee) Neuro General: patient alert, patient awake, patient oriented x3 and no focal motor deficits Cranial Nerves: CN's II-XI intact bilaterally Cognition: normal cognition Speech: speech normal Gait: other (unable to bear weight) Motor: muscle tone normal throughout and strength abnormal (1/5 bilateral lower) Extrem General: abnormal to inspection, abnormal ROM, clubbing, cyanosis or edema noted , edema Laterality: bilateral (right greater than left. ), pedal edema bilaterally and other (erythema) Right lower extremity: edema; No abnormal to inspection and ROM limited (Unna boot dressing in place) Left lower extremity: edema; No abnormal ROM Psych Mental Status: mental status grossly normal Speech and Movement: speech and movement normal Mood: congruent mood Affect: normal affect Attitude: cooperative Thought Process: normal Thought Content: normal Insight: insight good Judgment: judgment good Objective Last Vital Signs Temp 36.7 C 01/02/22 15:08 Pulse 89 01/02/22 15:08 Resp 18 01/02/22 15:08 BP 160/71 H 01/02/22 15:08 Pulse Ox 95 01/02/22 15:08 Laboratory Results - last 24 hr 01/02/22 01/02/22 06:12 06:12 WBC 12.87 H RBC 2.88 L Hgb 7.9 L Hct 24.4 L MCV 84.7 MCH 27.4 MCHC 32.4 RDW 15.0 H Plt Count 395 MPV 9.4 Immature Gran % 4.4 Neutrophils % 80.0 Lymphocytes % 3.8 Monocytes % 7.8 Eosinophils % 3.5 Basophils % 0.5 Nucleated RBC % 0 Absolute Neutrophils 10.30 H Absolute Lymphocytes 0.49 L Absolute Monocytes 1.00 H Absolute Eosinophils 0.45 Absolute Basophils 0.06 RBC Morphology Normal Sodium 127 L Potassium 3.8 Chloride 95 L Carbon Dioxide 24.9 Anion Gap 7.1 BUN 19 H Creatinine 0.5 L Estimated GFR/1.73 m2 >= 60.00 Glucose 116 H Calcium 8.1 L
[2022-01-02 19:21] VITALS: BP 155/67; PULSE 91; RESP 19; TEMP 37.4; O2SAT 94
[2022-01-02] MEDS: Melatonin 3 MG TAB 9 MG PO (21:14)
[2022-01-02 23:12] VITALS: BP 151/69; PULSE 89; RESP 18; TEMP 37.9; O2SAT 95
[2022-01-03] MEDS: CEFEPIME 2 GM in Normal Saline 100 ML IVPB ×3 (02:20→17:37)
[2022-01-03] MEDS: Normal Saline Flush 10 ML SYR IVP ×3 (02:21→17:38)
[2022-01-03] MEDS: traMADol 50 MG TAB PO ×3 (03:38→21:23)
[2022-01-03] MEDS: Nystatin 500000 UNITS/5 ML SUSP 5ML CUP PO ×5 (06:06→21:23)
[2022-01-03 06:10] VITALS: BP 167/66; PULSE 93; RESP 20; TEMP 37.6; O2SAT 94
[2022-01-03 07:03] LABS: Abs Immature Grans 0.51 10^3/uL (0.0-0.06); Absolute Basophil Count 0.06 10^3/uL (0.0-0.2); Absolute Eosinophil Count 0.44 10^3/uL (0.0-0.7); Absolute Monocyte Count 1.01 10^3/uL (0.1-0.8); Basophils % 0.5; Eosinophils % 3.5; HCT 24.6 % (40.0-50.0); HGB 7.9 g/dL (13.5-17.5); Immature Grans % 4.1; MCH 27.3 pg (27.0-33.0); MCHC 32.1 % (32.0-36.0); MCV 85.1 fL (80-95); MPV 9.2 fL (8.0-11.0); Monocytes % 8.1; Neutrophils % 79.8; Nucleated RBC 0 %; RBC 2.89 10^6/uL (4.36-5.78); RDW 15.1 % (11.8-14.1); RDW-SD 46.6 fL; WBC 12.53 10^3/uL (4.4-10.8)
[2022-01-03 07:17] LABS: Anion Gap 7.6 mmol/L (3-11); BUN 16 mg/dL (7-18); CO2 26.4 mmol/L (21.0-32.0); CREATININE 0.6 mg/dL (0.70-1.30); Calcium 8.1 mg/dL (8.5-10.1); Chloride 96 mmol/L (98-107); Glucose 115 mg/dL (74-106); Sodium 130 mmol/L (136-145)
[2022-01-03 07:26] LABS: Diff Comment Agrees w/ Instrument; Platelet Count 379 10^3/uL (130-400); Polychromasia Present
[2022-01-03 08:05] VITALS: BP 171/72; PULSE 88; RESP 20; TEMP 37.9; O2SAT 95
--- NOTE | 2022-01-03 08:05 | OTDS_ITS ---
Date of service: 01/03/22 Time of Service: 08:05 Occupational Therapy Notes Occupational Therapy Inpatient Discharge Summary Date: 01/03/22 Dates of Service: 12/20/21-01/03/22 Referring Doctor:Michela Lora NP OT Orders: Non Urgent Precautions: Fall, standard, Full *This document serves as a summary of care, no skilled OT services provided for this documentation* PATIENT PROFILE/ADMITTING DIAGNOSIS: Pt is a 71 year old male who was admitted for a dx of bactremia, Rhabdomyolysis, acute kidney injury, cellulitis, edema, tublovillous adenoma, colon polyps, obesity, low back pain, essential HTN. 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 History of colonoscopy PROCEDURES EXCIS SPINAL CORD LESION, 1981 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 Social History/Home Situation: Pt states that he lives alone and was fairly (I) at his baseline level of function. He reports that he had a steady decline his functional (I) recently and notes that the infection in his leg has contributed to the down fall of his functional (I). SUBJECTIVE:?NT OBJECTIVE:? ROM: RUE AROM WFL L UE AROM WFL STRENGTH: RUE 4/5 throughout LUE 4/5 throughout FUNCTIONAL MOBILITY/ADLS:? BATHING:?sitting in bed with max (A) set up/clean up and max (A) trunk support Upper Body: (I) face, top of abdomen and underarms/arms DRESSING:?? lying in bed in the sitting position with max (A) back support ? ? Upper Extremity: min (A) don and doffing hospital gown with vc for functional (I) TOILETING Steinberg in place Eating- (I) sitting in bed with max (A) support to his back ASSESSMENT:?? Patient is a? 71-year-old male referred to occupational therapy services with diagnosis of bactremia, Rhabdomyolysis, acute kidney injury, ce llulitis, edema, tublovillous adenoma, colon polyps, obesity, low back pain, essential HTN. Patient is receptive to performance of his ADLs. He is limited in terms of being able to progress with his functional (I) and OT has not been able to progress pt further at this time. Based on this, OT will encourage pt to perform his (B) UE And face as well as top of his abdomen (I) as he is able to do this. GOALS 1.? Grooming- sitting in chair (I) With oral hygiene with ideal technique 2.? Dressing- sitting in chair (I) UE and mod (I) LE 3.? Bathing- sitting in chair (I) UE and min (A) LE 4.? Toileting on toilet (I) 5.? Eating (I) PLAN OF CARE/TREATMENT PLAN: OT has been working with pt since 12/20/21. He has been able to perform his UE and face bathing and his UE dressing in the bed with max (A) support to his back. However he is unable to progress past this at this time. This has been his consistent baseline since the beginning of OT services with no increased progressions able to be made at this time. Based on pts current level of function, OT does feel that this is pts highest level of function at this time. As pt progresses with his functional mobility this may improve, however at this time he is unable to tolerate progressions and not able to progress his (I) based on this. If pt is able to progress in the future to improve his functional (I), OT is happy to work with pt and re-assess at that time. DISCHARGE RECOMMENDATIONS Based on pts current level of function, OT recommends that pt go to SNF for short term stay for increased functional activity tolerance and progressive (I) in his ADL/IADL routines. TREATMENT TIME/MINUTES/CODES N/A Carmen Romero, OTR/L [facility] [place], [place]
[2022-01-03] MEDS: Colchicine 0.6 MG TAB PO ×2 (08:08→19:37)
[2022-01-03] MEDS: Omega-3 Fatty Acids 1000 MG CAP PO (08:08)
[2022-01-03] MEDS: Pantoprazole 40 MG TABCR PO ×2 (08:08→19:36)
[2022-01-03] MEDS: Vitamin E 400 UNITS CAP PO (08:08)
[2022-01-03] MEDS: Lisinopril 20 MG TAB PO (08:09)
[2022-01-03] MEDS: Furosemide 40 MG TAB PO (08:09)
[2022-01-03] MEDS: amLODIPine 10 MG TAB PO (08:09)
[2022-01-03] MEDS: Docusate Sodium 100 MG CAP PO ×2 (08:09→19:36)
[2022-01-03] MEDS: Calcium 600mg/Vit D 200U TAB 1 TAB PO (08:10)
[2022-01-03] MEDS: Ferrous Sulfate 325 MG TAB PO ×2 (08:10→19:36)
[2022-01-03] MEDS: Ascorbic Acid 500 MG TAB PO (08:10)
[2022-01-03] MEDS: Acetaminophen 325 MG TAB 650 MG PO ×4 (08:10→19:36)
[2022-01-03] MEDS: Polyethylene Glycol 3350 17 GM PACKET PO (08:11)
[2022-01-03] MEDS: Nystatin POWDER 60 GM JAR TP ×2 (08:12→19:37)
[2022-01-03] MEDS: Nystatin CREAM 15 GM TUBE TP ×2 (08:13→19:37)
--- NOTE | 2022-01-03 10:20 | CMPROGNOTE_ITS ---
- If Service Date Differs Date of service: 01/03/22 Time of Service: 10:20 Care Management Progress Note S/O: Elan was sitting up in bed when CM met with him. He reported that he feels that he is making progress with PT, although it is slow. CM discussed barriers to placement, including his weight, and he reported that he has lost 14 lbs since admission, and feels that losing weight has been easier since he has been here, as his meals are being prepared for him. He stated that he misses being able to swim daily, as he wasn't able to use the [facility] pool after Covid began. Elan received two bed offers today, one at [facility], and another at [facility]. He asked to think about it overnight to determine which facility he would prefer to go. Per provider, he completed his IV abx course today, so he will likely be ready to transition to rehab tomorrow. CM will continue to follow. A: Ezio is a 71 year old man admitted on 12/18/21 with cellulitis and fever P: Anticipate Ezio will require SNF after competition of IV ABX before. Updated referrals faxed; both in [place] and [place]. Elan's weight has been identified as a barrier by many facilities as they do not have the equipment to safely care for him; he continues to require a robert lift with multiple staff supporting.
--- NOTE | 2022-01-03 14:45 | PT.INPN ---
Date of service: 01/03/22 Time of Service: 14:45 PT Notes Visit Reasons: Right Lower Extremity Physical Therapy Inpatient Progress Note Date: 01/03/2022 Dates of Service: 12/28/2021 through 01/03/2022 Precautions: Fall. Standard. Activity as tolerated. Subjective: Still highly anxious about getting out of bed, reportng that he is tired and that he will hurt. Objective: General Observation: Supine in bed.? Steinberg catheter in place.? IV access in left UE.? High BMI. Mental Status: Alert and oriented as to person, place, time, and purpose. Able to pay attention, focus, and respond appropriately. Pain: 3-4/10 at rest and up to 10/10 in B LE with movement ROM: Right Upper Extremity: ? Shoulder Flexion WFL. Shoulder abduction WFL. Elbow flexion WFL. Wrist flexion WFL. Functional opening and closing of hand WFL. Left Upper Extremity:? Shoulder Flexion WFL. Shoulder abduction WFL. Elbow flexion WFL. Wrist flexion WFL. Functional opening and closing of hand WFL. Right Lower Extremity: Hip flexion unable. Hip abduction unable. Knee flexion unable. Knee extension unable. Ankle plantarflexion 20 degrees. Left Lower Extremity: Hip flexion unable. Hip abduction unable. Knee flexion unable.? Knee extension -80 degrees while sitting at edge of bed. Ankle dorsiflexion 20 degrees.? Ankle dorsiflexion 10 degrees. Ankle plantarflexion 20 degrees. Strength: Right Upper Extremity: Shoulder flexors 4-/5. Shoulder abductors 4-/5. Elbow flexors 4-/5. Elbow extensors 4-/5. Sheet Metal Contractor strong. Left Upper Extremity: Shoulder flexors 4-/5. Shoulder abductors 4-/5. Elbow flexors 4-/5. Elbow extensors 4-/5. Sheet Metal Contractor strong. Right Lower Extremity: Hip flexors 1/5. Hip abductors 1/5. Knee flexors 1/5. Knee extensors 1/5. Ankle dorsiflexors 3-/5. Ankle plantarflexors 3-/5. Left Lower Extremity: Hip flexors 1/5. Hip abductors 1/5. Knee flexors 1/5. Knee extensors 1/5. Ankle dorsiflexors 3-/5. Ankle plantarflexors 3-/5. Sensation: Intact as to pain and light pressure in bilateral lower extremity Bed Mobility/Transfers: Rolling moderate assist of 4 Sit to stand NT Stand to sit NT Bed to chair via mechanical lift by nursing staff Chair to bed via mechanical lift by nursing staff Gait: Unable and unwilling to try at this time Balance: Static Sitting: unable and unwilling to try at this time Dynamic Sitting: unable and unwilling to try at this time Static Standing: unable and unwilling to try at this time Dynamic Standing: unable and unwilling to try at this time Special Tests: Mobility Limitations Standardized Measure [facility]-PAC 6 clicks Basic Mobility Inpatient Short Form: Raw Score: 6? CMS Score: 100% deficit? ? ? Informed Consent/Education:? Patient was instructed in purpose of PT consult and plan of care. Agreeable to proceed with established PT POC to achieve personal goals. Assessment:? Ezio has not made any meaningful functional gains in terms of mobility level.? Treatment focus for this week ?centered on increasing range and strength in B LE, UE, and trunk in supine and in sitting utilizing the baritaric bed chair feature. Patient will continue to require SNF placement to gradually work on bed mobility, core strengthening, trunk mobility prior to safely attempting any standing activities.? Patient will remain mechanical lift for all essential transfers.? Prognosis for being able to walk again is fair to poor basing on ongoing barriers. Patient presents with clinical signs and symptoms consistent with current/admitting diagnoses that have resulted to mobility limitations, gait instability, generalized weakness, and overall ADL decline as demonstrated by the following impairment level findings: 1.? Decreased strength to B UE/LE major muscle groups 2.? Impaired sitting/standing balance 3.? Impaired activity tolerance 4.? Limitation of joint range of motion in B LE joints 5.? Obesity 6.? B LE pain and swelling now significantly reduced Impairments are contributing to the following functional limitations: 1.? Decline in bed mobility skills 2.? Decline in transfer skills 3.? Inability to perform ambulation without assistive device and physical assistance 4.? Increased completion time for mobility ADL performance 5.? Increased risk for falls 6.? Difficulty with managing steps 7. Inability to thrive at home safely at this time Patient is assessed as a 81085 complexity based on the following: History: 71-year-old male with past medical history as indicated above Examination: Demonstrable impairment in strength, balance, and mobility level with underlying impairments and functional limitations as exhibited above as well as deficit score of 100% utilizing the [facility] Mobility Inpatient Short Form Presentation: Unstable Decision Makin high complexity Goals: Goals X1 week 1. Supine-Sit minimal assist NOT MET, CONTINUE 2. Sit-Supine minimal assist NOT MET, CONTINUE 3. Sit-Stand minimal assist NOT MET, CONTINUE 4. Stand-Sit minimal assist with bariatric front wheeled walker NOT MET, CONTINUE 5. Bed-Chair iminimal assist with bariatric front wheeled walker NOT MET, CONTINUE 6. Chair-Bed iminimal assist with bariatric front wheeled walker NOT MET, CONTINUE 7. Minimal assist with bariatric front wheeled walker for gait on level surface for at least 30 feet without report of pain nor dyspnea NOT MET, CONTINUE 8. Minimal assist with stair negotiation while holding onto B rails for at least 3 steps without report of pain nor dyspnea NOT MET, CONTINUE DISCHARGE RECOMMENDATIONS: [] ? Home with no services [] [] ? Home with services [specify] [] ? Home with outpatient PT [] [X] ? SNF for continued rehabilitation.? Patient will benefit from senior care facility placement for continued skilled physical therapy services in order to progress mobility level, strength, and balance in preparation for a safe discharge to home. [] ? Proof Operator Care [] [] ? SNF versus LTC based on ability to participate and progress [] TREATMENT CODE/TIME: 93081 x 24 minutes beginning at 14:45 PM. Thank you for the opportunity to participate in the care of this patient. Marisa Mcleod PT, DPT, CLT [facility] [place], [place]
[2022-01-03 15:11] VITALS: BP 133/69; PULSE 89; RESP 19; TEMP 37.1; O2SAT 97
--- NOTE | 2022-01-03 17:05 | PGE_ITS ---
Date of Service Date of service: 01/03/22 Time of Service: 17:06 Assessment and Plan Assessment and plan (1) Gouty arthritis of right knee: Status: Acute Assessment and plan: improvement of the knee bilaterally especially on the right. No erythema or pain with palpation. States just chronic pain. Erythema has receded, margins are now clearing. Some pink behind the knee. Continue prednisone burst for a total of 6 days and continue colchicine for 2 weeks then start on alopurinol. WBC elevated likely in setting of steroids He is currently on dapto and cefepime which appears clinically to be working despite rising leukocytosis. Repeat CRP improved. Blood cultures no growth Knee aspiration anerobic and aerobic fluid no growth at this time. (2) Bacteremia: Status: Resolved Assessment and plan: Cleared bacteremia, on cefepime and dapto will need at least 2 weeks or longer of antiobiotics also as above Cleared cx on 12/20 afebrile, continue to monitor. (3) Cellulitis: Status: Acute Assessment and plan: improving with in the margins. now pink behind knee only. no erythema to knee or surrounding area Qualifiers: Site of cellulitis of extremity: lower extremity Laterality: right (4) Edema: Status: Chronic Assessment and plan: continue lasix (5) Essential hypertension: Status: Chronic Assessment and plan: continue home meds, bp still in 150's to 180's will increase amlodipine to 10 mg. continue to monitor. (6) DVT prophylaxis: Status: Acute Assessment and plan: weight based enoxaparin per pharmacy was discontinued several days ago for drop in H&H and heme positive stool. H&H stable. (7) Discharge planning issues: Status: Acute Assessment and plan: IV antibiotics completed today referrals placed to skilled rehabilitation facility possible bed at [facility] and rehab discussed with dr. Mustafa Subjective Subjective Patient reports: no new complaints, feels better, tolerating liquids well, tolerating a regular diet, shortness of breath and afebrile Exam Const General: cooperative, comfortable, no acute distress and ill appearing chronically Nutritional Appearance: obese morbidly obese Orientation: alert, awake and oriented x3 HENMT Head: normal to inspection, normocephalic and atraumatic Mouth: moist mucous membranes and moist mucous membranes abnormal (dry) Chest Chest: normal inspection of the chest Resp Effort & Inspection: normal respiratory effort, able to speak in complete sentences, audible wheezes, no cough and no respiratory distress Auscultation: diminished lung sounds (bases) Cardio Rate: regular rate Rhythm: regular rhythm GI Inspection: large pannus and obesity Palpation: soft General: other (grant to gravity draining clear yellow medium urine) Skin General skin exam: erythema (right posterior knee medial aspect), excoriation (left lower extremity), induration (right posterior knee) and turgor decreased Rashes: rashes noted (under breast, pannus and right lower extremity) and other (RLE: erythematous well within skin markings and markedly improved) Wounds: wounds noted (multiple scabbed areas to body. Left knee) Neuro General: patient alert, patient awake, patient oriented x3 and no focal motor deficits Cranial Nerves: CN's II-XI intact bilaterally Cognition: normal cognition Speech: speech normal Gait: other (unable to bear weight) Motor: muscle tone normal throughout and strength abnormal (1/5 bilateral lower) Extrem General: abnormal to inspection, abnormal ROM, clubbing, cyanosis or edema noted, edema Laterality: bilateral (right greater than left. ), pedal edema bilaterally and other (erythema) Right lower extremity: edema; No abnormal to inspection and ROM limited (Unna boot dressing in place) Left lower extremity: edema; No abnormal ROM Psych Mental Status: mental status grossly normal Speech and Movement: speech and movement normal Mood: congruent mood Affect: normal affect Attitude: cooperative Thought Process: normal Thought Content: normal Insight: insight good Judgment: judgment good Objective Last Vital Signs Temp 37.1 C 01/03/22 15:11 Pulse 89 01/03/22 15:11 Resp 19 01/03/22 15:11 BP 133/69 01/03/22 15:11 Pulse Ox 97 01/03/22 15:11 Laboratory Results - last 24 hr 01/03/22 01/03/22 06:30 06:30 WBC 12.53 H RBC 2.89 L Hgb 7.9 L Hct 24.6 L MCV 85.1 MCH 27.3 MCHC 32.1 RDW 15.1 H Plt Count 379 MPV 9.2 Immature Gran % 4.1 Neutrophils % 79.8 Lymphocytes % 4.0 Monocytes % 8.1 Eosinophils % 3.5 Basophils % 0.5 Nucleated RBC % 0 Absolute Neutrophils 10.00 H Absolute Lymphocytes 0.50 L Absolute Monocytes 1.01 H Absolute Eosinophils 0.44 Absolute Basophils 0.06 RBC Morphology See Below Polychromasia Present Sodium 130 L Potassium 4.0 Chloride 96 L Carbon Dioxide 26.4 Anion Gap 7.6 BUN 16 Creatinine 0.6 L Estimated GFR/1.73 m2 >= 60.00 Glucose 115 H Calcium 8.1 L
--- NOTE | 2022-01-03 18:00 | INDS_ITS ---
Date of service: 01/03/22 PT Notes Visit Reasons: Right Lower Extremity Physical Therapy Inpatient Discharge Summary Date: 01/03/2022 Dates of Service: 12/19/2021 through 01/03/2022 This is a clinical summary of care provided for the duration of dates listed above. No charge was made in the completion of this documentation. Precautions: Fall. Standard. Activity as tolerated. Subjective:?NT. See most recent GENERAL MANAGER FOOD notes. Objective: General Observation: NT. See most recent GENERAL MANAGER FOOD notes. Mental Status: NT. See most recent GENERAL MANAGER [employer] notes. Pain: NT. See most recent GENERAL MANAGER [employer] notes. ROM: Right Upper Extremity: ? Shoulder Flexion WFL. Shoulder abduction WFL. Elbow flexion WFL. Wrist flexion WFL. Functional opening and closing of hand WFL. Left Upper Extremity:? Shoulder Flexion WFL. Shoulder abduction WFL. Elbow flexion WFL. Wrist flexion WFL. Functional opening and closing of hand WFL. Right Lower Extremity: Hip flexion unable. Hip abduction unable. Knee flexion unable. Knee extension unable. Ankle plantarflexion 20 degrees. Left Lower Extremity: Hip flexion unable. Hip abduction unable. Knee flexion unable.? Knee extension -80 degrees while sitting at edge of bed. Ankle dorsiflexion 20 degrees.? Ankle dorsiflexion 10 degrees. Ankle plantarflexion 20 degrees. Strength: Right Upper Extremity: Shoulder flexors 4-/5. Shoulder abductors 4-/5. Elbow flexors 4-/5. Elbow extensors 4-/5. Truck Mechanic Apprentice strong. Left Upper Extremity: Shoulder flexors 4-/5. Shoulder abductors 4-/5. Elbow flexors 4-/5. Elbow extensors 4-/5. Truck Mechanic Apprentice strong. Right Lower Extremity: Hip flexors 1/5. Hip abductors 1/5. Knee flexors 1/5. Knee extensors 1/5. Ankle dorsiflexors 3-/5. Ankle plantarflexors 3-/5. Left Lower Extremity: Hip flexors 1/5. Hip abductors 1/5. Knee flexors 1/5. Knee extensors 1/5. Ankle dorsiflexors 3-/5. Ankle plantarflexors 3-/5. Sensation: Intact as to pain and light pressure in bilateral lower extremity Bed Mobility/Transfers: Rolling moderate assist of 2 Sit to stand NT Stand to sit NT Bed to chair via mechanical lift by nursing staff Chair to bed via mechanical lift by nursing staff Gait: Unable and unwilling to try at this time Balance: Static Sitting: unable and unwilling to try at this time Dynamic Sitting: unable and unwilling to try at this time Static Standing: unable and unwilling to try at this time Dynamic Standing: unable and unwilling to try at this time Assessment:? Ezio has not made any meaningful functional gains in terms of mobility level.? Treatment focus for this week ?centered on increasing range and strength in B LE, UE, and trunk in supine and in sitting utilizing the baritaric bed chair feature. ? Patient will continue to require SNF placement to gradually work on bed mobility, core strengthening, trunk mobility prior to safely attempting any standing activities.? Patient will remain mechanical lift for all essential transfers.? Prognosis for being able to walk again is fair to poor basing on ongoing barriers. Patient presents with clinical signs and symptoms consistent with current/admitting diagnoses that have resulted to mobility limitations, gait instability, generalized weakness, and overall ADL decline as demonstrated by the following impairment level findings: 1.? Decreased strength to B UE/LE major muscle groups 2.? Impaired sitting/standing balance 3.? Impaired activity tolerance 4.? Limitation of joint range of motion in B LE joints 5.? Obesity 6.? B LE pain and swelling now significantly reduced Impairments are contributing to the following functional limitations: 1.? Decline in bed mobility skills 2.? Decline in transfer skills 3.? Inability to perform ambulation without assistive device and physical assistance 4.? Increased completion time for mobility ADL performance 5.? Increased risk for falls 6.? Difficulty with managing steps 7.? Inability to thrive at home safely at this time Goals: Goals X1 week 1. Supine-Sit minimal assist NOT MET 2. Sit-Supine minimal assist NOT MET 3. Sit-Stand minimal assist NOT MET 4. Stand-Sit minimal assist with bariatric front wheeled walker NOT MET 5. Bed-Chair iminimal assist with bariatric front wheeled walker NOT MET 6. Chair-Bed iminimal assist with bariatric front wheeled walker NOT MET 7. Minimal assist with bariatric front wheeled walker for gait on level surface for at least 30 feet without report of pain nor dyspnea NOT MET 8. Minimal assist with stair negotiation while holding onto B rails for at least 3 steps without report of pain nor dyspnea NOT MET DISCHARGE RECOMMENDATIONS: [] ? Home with no services [] [] ? Home with services [specify] [] ? Home with outpatient PT [] [X] ? SNF for continued rehabilitation.? Patient will benefit from detention facility placement for continued skilled physical therapy services in order to progress mobility level, strength, and balance in preparation for a safe discharge to home. [] ? Neuropsychology [facility] [] [] ? SNF versus LTC based on ability to participate and progress [] TREATMENT CODE/TIME: UT Thank you for the opportunity to participate in the care of this patient. Marisa Mcleod PT, DPT, CLT [facility] [place], [place]
[2022-01-03] MEDS: Melatonin 3 MG TAB 9 MG PO (21:23)
[2022-01-03 23:38] VITALS: BP 184/74; PULSE 89; RESP 18; TEMP 37.3; O2SAT 97
[2022-01-04] MEDS: CEFEPIME 2 GM in Normal Saline 100 ML IVPB (01:42)
[2022-01-04] MEDS: Normal Saline Flush 10 ML SYR IVP (01:42)
[2022-01-04 03:37] VITALS: BP 159/83
[2022-01-04] MEDS: traMADol 50 MG TAB PO ×2 (03:56→10:46)
[2022-01-04] MEDS: Nystatin 500000 UNITS/5 ML SUSP 5ML CUP PO ×2 (06:39→10:55)
[2022-01-04 08:06] VITALS: BP 145/74; PULSE 89; RESP 20; TEMP 37.8; O2SAT 93
[2022-01-04] MEDS: Protein Nutritional Supplement 16 GM 1 OUNCE PACKET PO ×2 (08:47→11:58)
[2022-01-04] MEDS: Polyethylene Glycol 3350 17 GM PACKET PO (08:47)
[2022-01-04] MEDS: Nystatin POWDER 60 GM JAR TP (08:48)
[2022-01-04] MEDS: Lisinopril 20 MG TAB PO (08:49)
[2022-01-04] MEDS: Calcium 600mg/Vit D 200U TAB 1 TAB PO (08:49)
[2022-01-04] MEDS: Vitamin E 400 UNITS CAP PO (08:49)
[2022-01-04] MEDS: Colchicine 0.6 MG TAB PO (08:49)
[2022-01-04] MEDS: Ferrous Sulfate 325 MG TAB PO (08:49)
[2022-01-04] MEDS: Omega-3 Fatty Acids 1000 MG CAP PO (08:49)
[2022-01-04] MEDS: Ascorbic Acid 500 MG TAB PO (08:49)
[2022-01-04] MEDS: Docusate Sodium 100 MG CAP PO (08:50)
[2022-01-04] MEDS: Acetaminophen 325 MG TAB 650 MG PO ×2 (08:50→11:57)
[2022-01-04] MEDS: Furosemide 40 MG TAB PO (08:50)
[2022-01-04] MEDS: amLODIPine 10 MG TAB PO (08:50)
[2022-01-04] MEDS: Pantoprazole 40 MG TABCR PO (08:50)
--- NOTE | 2022-01-04 09:30 | W.PM.PROGNOT ---
Date of Service Date of service: 01/23/22 Time of Service: 16:00 Assessment and Plan Assessment and plan (1) Gouty arthritis of right knee: Start date: 12/26/21 Start time: 16:00 Status: Acute Assessment and plan: improvement of the knee bilaterally especially on the right. No erythema or pain with palpation. States just chronic pain. Erythema has receded, margins are now clearing. Continue prednisone burst for a total of 6 days and continue colchicine for 2 weeks then start on alopurinol. WBC improving He is currently on dapto and cefepime which appears clinically to be working despite rising leukocytosis. Will repeat CRP in am. Blood cultures no growth Knee aspiration anerobic and aerobic fluid no growth at this time. (2) Bacteremia: Start date: 12/26/21 Start time: 16:00 Status: Resolved Assessment and plan: Cleared bacteremia, on cefepime and dapto will need at least 2 weeks or longer of antiobiotics also as above Cleared cx on 12/20 afebrile, continue to monitor. (3) Cellulitis: Start date: 12/26/21 Start time: 13:39 Status: Resolved Assessment and plan: improving with in the margins. no longer pink unable to visualize under wrap, surgery has wrapped leg no erythema to knee or surrounding area Qualifiers: Site of cellulitis of extremity: lower extremity Laterality: right (4) Edema: Start date: 12/26/21 Start time: 16:00 Status: Chronic Assessment and plan: continue lasix (5) Essential hypertension: Start date: 12/26/21 Start time: 16:00 Status: Chronic Assessment and plan: continue home meds, bp still in 150's to 180's will increase amlodipine to 10 mg. lisinopril has been added to help bp, continue to monitor. (6) DVT prophylaxis: Start date: 12/25/21 Start time: 13:41 Status: Acute Assessment and plan: weight based enoxaparin per pharmacy recommendations (7) Discharge planning issues: Start date: 12/26/21 Start time: 16:00 Status: Acute Assessment and plan: anticipate at least 2 weeks of IV antibiotics, in addition to skilled rehabilitation facility prior to going home discussed with dr. lincoln Subjective Subjective Patient reports: no new complaints Interval history since last seen: Leg improving pain improving, doing well Exam Const General: cooperative and ill appearing chronically Nutritional Appearance: obese morbidly obese Orientation: alert, awake and oriented x3 HENMT Head: normal to inspection, normocephalic and atraumatic Mouth: moist mucous membranes Chest Chest: normal inspection of the chest Resp Effort & Inspection: normal respiratory effort Auscultation: diminished lung sounds (bases) Cardio Rate: regular rate Rhythm: regular rhythm GI Inspection: large pannus and obesity Palpation: soft General: other (grant to gravity draining clear yellow medium urine) Skin Rashes: rashes noted (under breast, pannus and right lower extremity) and other (RLE: erythematous within skin markings, yellow crust, see NN) Wounds: wounds noted (multiple scabbed areas to body. Left knee improving) Other: multiple scabbed areas to right foot and left lower extremity. Stage 2 to coccyx Neuro General: patient alert, patient awake, patient oriented x3 and no focal motor deficits Cognition: normal cognition Speech: speech normal Gait: other (only able to sit on edge of bed) Motor: muscle tone normal throughout Extrem General: abnormal to inspection, clubbing, cyanosis or edema noted, edema and other (erythema) Right lower extremity: edema; No abnormal to inspection Left lower extremity: edema Other: erythema improving within the margins barely there now pink behind the knee, no pain to either knee with palpation Psych Mental Status: mental status grossly normal Speech and Movement: speech and movement normal Mood: congruent mood Affect: normal affect Attitude: cooperative Thought Process: normal Thought Content: normal Insight: insight good Judgment: judgment good Objective Last Vital Signs Temp 37.8 C H 01/04/22 08:06 Pulse 89 01/04/22 08:06 Resp 20 01/04/22 08:06 BP 145/74 H 01/04/22 08:06 Pulse Ox 93 01/04/22 08:06
--- NOTE | 2022-01-04 10:23 | PTTR_ITS ---
Date of service: 01/03/22 Time of Service: 10:23 PT Notes Visit Reasons: Right Lower Extremity 01/03/2022 SUBJECTIVE: Does not think he will walk again. Agreeable to Bed exercises only. OBJECTIVE: TRANSFERS/GAIT: Unable THEREX: Semi reclined UE/LE exercises as noted on flow sheet. Cues required throughout for appropriate completion of these exercises. See flow sheet. ASSESSMENT: Low motivation level throughout. Only basic exercises are performed this AM. PLAN: Continue to progress strength, bed mobility and seated exercises as he tolerates and is willing. Direct time: 15 minutes [id number] Calista Farooq PTA Clinic location: [facility] [place], [place]
--- NOTE | 2022-01-04 10:37 | W.PM.DS.N ---
Date of service: 01/04/22 Time of Service: 10:37 DS: Diagnosis Discharge Diagnosis (1) Gouty arthritis of right knee: Start date: 01/04/22 Start time: 10:38 Status: Acute Asessment and Plan: Initially concerned for septic arthritis as patient was not improving despite antibiotic therapy. Right knee was red and swollen with severe pain. Surgery and ortho were consulted. Ortho did knee aspiration. There was concern as there was large amount of blood and fluid aspirated. The anaerobic and aerobic cx both negative for growth. Patient shown to have gouty arthritis of his knee. He was placed on colchicine immediately and steroid burst, within days pain improved. Knee was no longer swollen or red. Erythema was decreased with in margins. Patient will finish a full course of colchicine and then switch to allpopurinol per up to date. Repeat lab work in one week and f/u with PCP in 1 week. (2) Bacteremia: Start date: 01/04/22 Start time: 10:45 Status: Resolved Asessment and Plan: Grew Strep G in blood cultures, cleared cx. Allergic to PCN. Tolerated cefepime. Despite cefepime alone did not approve. He was placed on dapto as well. Transitioned to cefpodoxime and linezolid oral for discharged. He has only been on these medications apporx 12 days. Recommend 2 more weeks given that he is obese with lymphedema and will have a harder time clearing infection and keeping it cleared. Therefore. Will continue another 2 weeks of antibiotics. Will defer to PCP for further treatment or discontinuation of medication. Will also place on bio-k (3) Cellulitis: Start date: 01/04/22 Start time: 10:50 Status: Resolved Asessment and Plan: resolved. as above, continue antibiotics. (4) Edema: Start date: 01/04/22 Start time: 10:50 Status: Chronic Asessment and Plan: chronic, continue lasix and wrapping of RLE (5) Essential hypertension: Start date: 01/04/22 Start time: 10:50 Status: Chronic Asessment and Plan: BP variable and elevated. Amlodipine added to lisinopril to control bp He will need tighter control as and outpatient. Discussed with Dr. Mustafa Discharge Plan Disposition Patient Disposition: SNF ([facility] Condition: Improving Discharge Details Reason For Visit: Right Lower Extremity Admit Date/Time: 12/18/21 14:54 Admit Provider: Susy Roa Attending Provider: Susy Roa Primary Care Provider: Jennifer Delgado [facility] Course Hospital Course: 71 y.o male obese with PMH of lymphedema, HTN, and edema, recently treated at [facility] for right lower extremity cellulitis who was in his usual state of health and doing ok until 2 days ago prior to admission when he developed right lower extremity pain swelling and redness.? He stated he also had generalized malaise and weakness and had multiple falls.? The night prior to admission he spent the night on the floor because he was too week to get up.? In the am he was transported to the ED for evaluation.? Work up was concerning for cellulitis, he was also found to have rhabdomyolysis with add on CK of greater than 10k.? He was admitted to hospitalist services for further management.?Initiated on vanco in the ED and started on IV fluids. He was also found to have RLE cellulitis. During course of hospitalization patient was placed on cefepime and vanco dcd after mrsa swap negative. He continued to c/o pain to RLE and erythema was getting worse. He was placed on dapto, CT of his knee was done revealing csyt, infection could not be excluded. Surgery and ortho were consulted. Surgery was concerned for septic joint, as well as myselt. Ortho aspirated knee. Found to have gouty arthritis. He was started on colchicine and steroid burst. His pain dramatically improved in 48 hours. He no longer had erythema and pain. His erythema started to recede within the margins. Today he now has no erythema. His legs are slightly swollen within his normal limits. He has bandage around them from surgery recommendations. He does have a wound to his sacrum from constantly being on his back side. will order clarence compound. Switch IV antibx to oral with another 2 weeks. Defer to PCP for discontinuation or increasing medication length. He will require longer antibx usage d/t lymphedema requiring longer regimen. He will be switched to allopurnol after 2 weeks of colchicine. He is being discharged to H/r. Home Meds and New Rx's Prescriptions: New amlodipine 10 mg Tablet 10 mg PO DAILY Qty: 30 0RF cefpodoxime 200 mg Tablet 400 mg PO Q12H Qty: 28 0RF cefpodoxime 200 mg Tablet 400 mg PO Q12H Qty: 28 0RF colchicine [Colcrys] 0.6 mg Tablet 0.6 mg PO BID Qty: 7 0RF ferrous sulfate 325 mg (65 mg iron) Tablet 325 mg PO BID Qty: 60 0RF linezolid 600 mg Tablet 600 mg PO BID Qty: 28 0RF Neosporin ([id number]) 3.5mg-400 unit- 5,000 unit/gram Ointment 1 applic topical TID Qty: 28.3 0RF nystatin 100,000 unit/gram Cream 1 applic topical BID Qty: 30 0RF nystatin 100,000 unit/gram Powder 1 applic topical BID Qty: 60 0RF pantoprazole 40 mg Tablet,Delayed Release (Dr/Ec) 40 mg PO BID@729,1999 Qty: 60 0RF Bio-K plus 50 billion cell capsule,delayed release(DR/EC) 1 cap PO DAILY Qty: 30 0RF allopurinol 100 mg tablet 100 mg PO DAILY Qty: 30 0RF Continued omega-3 fatty acids 1,000 mg capsule 1,000 mg PO DAILY 0RF lisinopril 20 mg tablet 20 mg PO DAILY Qty: 90 3RF triamcinolone acetonide 0.1 % cream 1 applic topical DAILY Qty: 453.6 0RF ascorbic acid (vitamin C) [Vitamin C] 500 MG tablet 500 mg PO DAILY 0RF vitamin E (dl, acetate) 200 UNIT capsule 200 unit PO DAILY 0RF calcium carbonate-vitamin D3 [Caltrate with Vitamin D3] 1 EACH tablet 1 ea PO DAILY 0RF furosemide 40 mg tablet 40 mg PO DAILY Qty: 90 4RF Discharge Instructions Instructions: Cellulitis (DC), Low Purine Diet (DC), Gout (GEN) Additional Instructions: Follow up with PCP in 1 week Repeat labs in apprx 1 week Activity:: Activity as Tolerated Equipment/Supplies:: No Equipment Needed Diet:: Low Sodium Discharge Orders Discharge Orders: Discharge Order (Routine); Ordered 01/04/22 Ordered By: Yadira Sepulveda Other Ambulatory Orders: Complete Blood Count w/Diff (Routine) Location: None Selected Ordered By: Yadira Sepulveda C-Reactive Protein (Routine) Location: None Selected Ordered By: Yadira Sepulveda DS: Summary Time Spent with Patient providing and/or coordinating discharge services: Greater than 30 minutes Status at Discharge Functional status at discharge: bed bound Overall status at discharge: patient is progressing back to baseline Mental Status: mental status grossly normal Speech and Movement: speech and movement normal Mood: congruent mood Affect: normal affect Exam Const General: cooperative, comfortable, no acute distress and ill appearing chronically Nutritional Appearance: obese morbidly obese Orientation: alert, awake and oriented x3 HENMT Head: normal to inspection, normocephalic and atraumatic Mouth: moist mucous membranes and moist mucous membranes abnormal (dry) Chest Chest: normal inspection of the chest Resp Effort & Inspection: normal respiratory effort, able to speak in complete sentences, audible wheezes, no cough and no respiratory distress Auscultation: diminished lung sounds (bases) Cardio Rate: regular rate Rhythm: regular rhythm GI Inspection: large pannus and obesity Palpation: soft General: other (grant to gravity draining clear yellow medium urine) Skin General skin exam: erythema (right posterior knee medial aspect), excoriation (left lower extremity), induration (right posterior knee) and turgor decreased Rashes: rashes noted (under breast, pannus and right lower extremity) and other (RLE: erythematous well within skin markings and markedly improved) Wounds: wounds noted (multiple scabbed areas to body. Left knee) Neuro General: patient alert, patient awake, patient oriented x3 and no focal motor deficits Cranial Nerves: CN's II-XI intact bilaterally Cognition: normal cognition Speech: speech normal Gait: other (unable to bear weight) Motor: muscle tone normal throughout and strength abnormal (1/5 bilateral lower) Extrem General: abnormal to inspection, abnormal ROM, clubbing, cyanosis or edema noted, edema Laterality: bilateral (right greater than left. ), pedal edema bilaterally and other (erythema) Right lower extremity: edema; No abnormal to inspection and ROM limited (Unna boot dressing in place) Left lower extremity: edema; No abnormal ROM Psych Mental Status: mental status grossly normal Speech and Movement: speech and movement normal Mood: congruent mood Affect: normal affect Attitude: cooperative Thought Process: normal Thought Content: normal Insight: insight good Judgment: judgment good DS: Data Vitals/I&O Vitals and I&O: Vital Signs Temperature 37.8 C H 01/04/22 08:06 Temperature Source Tympanic 01/04/22 08:06 Pulse 89 01/04/22 08:06 Pulse Rhythm Regular 01/04/22 03:07 Pulse 102 H 12/18/21 15:16 Respiratory Rate 20 01/04/22 08:06 Respiratory Effort Non-Labored 01/04/22 03:07 Respiratory Depth Normal 01/04/22 03:07 Respiratory Pattern Irregular 01/04/22 03:07 Blood Pressure 145/74 H 01/04/22 08:06 Blood Pressure Mean 88 12/18/21 15:16 Pulse Oximetry 93 01/04/22 08:06 Oxygen Delivery Method Room Air 01/04/22 08:06 Oxygen Flow Rate 0 01/04/22 08:06 Pain Level 7 01/04/22 03:56 Comment 01/03/22 08:05 Intake & Output 01/03/22 01/03/22 01/04/22 11:59 23:59 11:59 Intake Total 460 / 1890 1430 / 1890 100 / 100 Output Total 1525 / 2475 950 / 2475 1200 / 1200 Balance -1065 / -585 480 / -585 -1100 / -1100 Intake: IV 260 / 370 110 / 370 100 / 100 Oral 200 / 1520 1320 / 1520 Output: Urine 1525 / 2475 950 / 2475 1200 / 1200 Other: Urine Color Light Niki Yellow Straw Urine Appearance Clear Clear Clear Data Completed and Pending Completed studies during hospitalization [Text1]: Exam(s) US EXTREMITY VENOUS BI EXAM:? US EXTREMITY VENOUS BI CLINICAL HISTORY:? b/l lower leg pain TECHNIQUE:? Grayscale, color, and doppler imaging of the deep venous system of both lower extremities was performed. COMPARISON:? No exams were available for comparison FINDINGS: There is no evidence of intraluminal thrombus and there is normal compression and augmentation demonstrated within the common femoral veins, femoral veins, and popliteal veins of both lower extremities. In the calves the interrogated veins also exhibit normal compression/ augmentation properties. The greater saphenous veins also appear patent as do the saphenofemoral junctions bilaterally.. IMPRESSION: 1.? No ultrasound evidence of DVT in either lower extremity. Conclusion Normal left ventricular wall thickness and chamber size.? Estimated ejection fraction is approximately 60%.? Wall motion appears normal Normal right ventricular size and systolic function Both atria are normal in size Aortic valve sclerosis without stenosis or regurgitation Mild mitral annular calcification.? Mild mitral regurgitation Normal tricuspid valve with trace to mild regurgitation.? Estimated right ventricular systolic pressure is 27 mmHg FINDINGS: Limited two view study of the right knee performed portable AP and cross-table lateral reveals no evidence of obvious fracture but there is a prominent joint effusion filling and expanding the suprapatellar bursa.? There is [id number] narrowing of the medial compartment and there is a large degenerative subarticular cyst in the sub spinous tibial plateau.? More moderate narrowing of noted in the lateral compartment.? Degenerative changes in the patellofemoral compartment also noted.? Janki-Stieda type calcification is noted adjacent to the outer aspect of the medial femoral condyle, probably related to prior MCL injury. IMPRESSION: Advanced degenerative changes.? Large joint effusion which may or may not be related to the degenerative changes. Exam(s) XR TIB/FIB RT EXAM:? XR TIB/FIB RT CLINICAL HISTORY: ? pain, fall. ? TECHNIQUE:? 2D digital imaging was performed. COMPARISON:? No exams were available for comparison FINDINGS: There is diffuse subcutaneous edema in the calf. No radiopaque foreign body seen.? There is no evidence of fracture of the tibia and fibula.? Advanced narrowing of the medial compartment of the knee is noted.? No osseous lesions.? No radiographic evidence of osteomyelitis IMPRESSION: FINDINGS: Bones:? The osseous structures are intact.? Tricompartment degenerative changes are seen in the knee.? Bony alignment is satisfactory.? No radiographic findings to suggest osteomyelitis are seen.? There is a large joint effusion.? There is a cystic collection posterior to the knee most consistent with a popliteal cyst.? The cyst does show mildly thickened wall with some enhancement.? Infection cannot be excluded.? No lytic or sclerotic lesions are identified. Soft Tissues: There is subcutaneous edema seen throughout the leg.? No focal fluid collection is seen to suggest an abscess.? Findings are most suggestive of cellulitis. Enhancement: No other abnormal enhancement is seen in the leg.? IMPRESSION: 1. Cellulitis of the lower leg. 2. Fluid collection posterior to the knee in location most consistent with a popliteal cyst.? The cyst does show mildly thickened wall with some enhancement.? Infection cannot be excluded.? IMPRESSION: 1.? No evidence of DVT in the left lower extremity. Popliteal cyst incidentally noted. 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) Essential hypertension (Chronic 08/04/13) Medical History DNI (do not intubate) DNR (do not resuscitate) History of alcoholism quit 1989 History of tobacco use quit in 1995 Palliative care patient POLST (Physician Orders for Life-Sustaining Treatment) Renal failure syndrome (05/27/13) Ulcer of other part of foot (10/03/95) Surgical History History of colonoscopy History of excision of mass PROCEDURES EXCIS SPINAL CORD LESION, 1981 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 Sister No problems noted. Sister No problems noted. Sister No problems noted. Social History Smoking/Tobacco Use Status: Former Tobacco Use tobacco type: cigarettes Quit Date: 11/04/95 Second Hand Exposure: No Smoking risk assessment performed?: Yes Alcohol Intake: former Drug use: Never Substance use type: does not use Details: Pt states sober since 1995 Caregiver/Support person: No Do you need help understanding health information?: Never Pets and animals: No Sexually active: No Do you think of yourself as: straight/heterosexual Current gender identity: male What is your relationship status?: How often do you talk on the phone with friends or family?: twice per week How often do you get together with friends or relatives?: once per week How often do you attend jain or orthodox services?: decline to answer Do you belong to any clubs or organized social groups?: no Panel score (0-1 are the most socially isolated patients): 1 What type of physical activity do you participate in: weight lifting Duration: 15-30 minutes/day Frequency: 5-6 times per week Dasha/Yarsani: No preference Special dasha needs: No Seatbelt use: always Helmet use: No Drive intox or ride w/intox auto carrier driver: No Do you feel safe at home: Yes Victim of physical abuse: No Victim of emotional abuse: No Victim of sexual abuse: No
[2022-01-04 10:40] LABS: Source Nasal/Nares
[2022-01-04] MEDS: Cefpodoxime 200 MG TAB 400 MG PO ×2 (10:44→10:47)
[2022-01-04] MEDS: Linezolid 600 MG TAB PO (10:55)
[2022-01-04 11:20] LABS: COVID-19 PCR Negative (Negative)
--- NOTE | 2022-01-04 16:34 | PDOC.CMDIS ---
- If Service Date Differs Date of service: 01/04/22 Time of Service: 16:34 LACE Index Scoring Tool - Questions: Length of Stay (in days): 7 - 13 Acuity (Admit via E.D.?): Yes E.D. Visits: 1 - Answers: Total Score: 9 Risk of Readmission: Low Risk Care Management Discharge Reason for Hospitalization: Rhabdo and cellulitis Discharge Plan: Ezio will discharge to [facility] for continued rehab, prior to longer term planning. He will transport via EMS, coordinated by CM. Patient/Family Education Needs: Review discharge instructions, discuss Ask Me Three. Services Needed at Discharge: [facility] Facility ([facility] ), [facility])
== END 2022-01-04 13:30 | disposition skilled nursing facility (03) | DRG 558 ==
LOC: ER 10:47 → MS 15:31
PROVIDERS: Family Medicine; Internal Medicine; Nurse Practitioner Acute Care; Nurse Practitioner Family; Student in an Organized Health Care Education/Training Program; Admitting Provider Internal Medicine; Emergency Provider Student in an Organized Health Care Education/Training Program; PCP Nurse Practitioner; Visit Provider Internal Medicine
DX: M62.82 Rhabdomyolysis (principal); Z68.43 Body mass index [BMI] 50.0-59.9, adult; L03.115 Cellulitis of right lower limb; N17.9 Acute kidney failure, unspecified; R78.81 Bacteremia; I10 Essential (primary) hypertension; M54.50 Low back pain, unspecified; F10.21 Alcohol dependence, in remission; Z87.891 Personal history of nicotine dependence; R60.0 Localized edema; W18.39XA Other fall on same level, initial encounter; Z91.81 History of falling; R26.2 Difficulty in walking, not elsewhere classified; L72.3 Sebaceous cyst; B95.1 Streptococcus, group B, as the cause of diseases classified elsewhere; Z20.822 Contact with and (suspected) exposure to COVID-19; S50.312A Abrasion of left elbow, initial encounter; L89.152 Pressure ulcer of sacral region, stage 2; M10.061 Idiopathic gout, right knee; E66.09 Other obesity due to excess calories; Z86.010 Personal history of colon polyps; Z66 Do not resuscitate
CPT/HCPCS: 20610; 36415; 75635; 80048; 80053; 80076; 82550; 84145; 85652; 86704; 86709; 86803; 86850; 86900; 86901; 87040; 87077; 87340; 87635; 93005; 93306; 96361; 96365; 96366; 96375; 97110; 97163; 97166; 97530; 97535; 99222; 99223; 99232; 99285; 73560; 73590; 73701; 81003; 81015; 82728; 83540; 83550; 83605; 83735; 85014; 85018; 85025; 85049; 85610; 85730; 86140; 87070; 87075; 87186; 87205; 89051; 89060; 93010; 93970; 93971; 99233; 99239; J0878; J1200; J1650; J1756; J1885; J2270; J3490; J7512; Q9967

== ENCOUNTER 2022-01-08 18:29 | Outpatient (REF) | payer MEDICARE, SELFPAY ==
[2022-01-08 19:06] LABS: Abs Immature Grans 0.33 10^3/uL (0.0-0.06); Absolute Basophil Count 0.07 10^3/uL (0.0-0.2); Absolute Eosinophil Count 0.72 10^3/uL (0.0-0.7); Absolute Lymphocyte Count 0.59 10^3/uL (1.2-3.4); Absolute Neutrophil Count 7.55 10^3/uL (1.2-6.7); Basophils % 0.7; Eosinophils % 7.1; HCT 24.4 % (40.0-50.0); HGB 7.6 g/dL (13.5-17.5); Immature Grans % 3.2; Lymphocytes % 5.8; MCH 26.8 pg (27.0-33.0); MCHC 31.1 % (32.0-36.0); MCV 85.9 fL (80-95); MPV 9.1 fL (8.0-11.0); Monocytes % 8.9; Neutrophils % 74.3; Nucleated RBC 0 %; Platelet Count 336 10^3/uL (130-400); RBC 2.84 10^6/uL (4.36-5.78); RDW 14.9 % (11.8-14.1); RDW-SD 46.4 fL; WBC 10.16 10^3/uL (4.4-10.8)
[2022-01-08 19:30] LABS: ALT 83 U/L (16-63); AST 60 U/L (15-37); Albumin 1.4 g/dL (3.4-5.0); Alkaline Phosphatase 152 U/L (46-116); Anion Gap 8.8 mmol/L (3-11); BUN 13 mg/dL (7-18); Bilirubin, Total 0.3 mg/dL (0.2-1.0); CO2 26.2 mmol/L (21.0-32.0); CREATININE 0.7 mg/dL (0.70-1.30); Calcium 7.9 mg/dL (8.5-10.1); Chloride 92 mmol/L (98-107); Glucose 119 mg/dL (74-106); Potassium 4.1 mmol/L (3.5-5.1); Sodium 127 mmol/L (136-145); Total Protein 5.7 g/dL (6.4-8.2)
[2022-01-08 19:31] LABS: Anisocytosis 1+; Diff Comment Agrees w/ Instrument; Macrocytosis 1+
== END 2022-01-08 18:30 | disposition home or self-care (01) ==
LOC: LBN 18:29
PROVIDERS: PCP Nurse Practitioner; Visit Provider Family Medicine
DX: R78.81 Bacteremia (principal)
CPT/HCPCS: 80053; 85025

== ENCOUNTER 2022-01-14 11:24 | Outpatient (REF) | payer MEDICARE, SELFPAY ==
[2022-01-14 12:30] LABS: Abs Immature Grans 0.26 10^3/uL (0.0-0.06); Absolute Lymphocyte Count 0.83 10^3/uL (1.2-3.4); Absolute Monocyte Count 0.81 10^3/uL (0.1-0.8); Absolute Neutrophil Count 13.33 10^3/uL (1.2-6.7); Basophils % 0.6; Eosinophils % 5.8; HCT 27.3 % (40.0-50.0); HGB 8.4 g/dL (13.5-17.5); Immature Grans % 1.6; Lymphocytes % 5.1; MCH 26.3 pg (27.0-33.0); MCHC 30.8 % (32.0-36.0); MCV 85.3 fL (80-95); MPV 8.9 fL (8.0-11.0); Neutrophils % 81.9; Nucleated RBC 0 %; Platelet Count 436 10^3/uL (130-400); RDW 14.9 % (11.8-14.1); RDW-SD 46.3 fL; WBC 16.27 10^3/uL (4.4-10.8)
[2022-01-14 12:33] LABS: ALT 58 U/L (16-63); AST 50 U/L (15-37); Albumin 1.7 g/dL (3.4-5.0); Alkaline Phosphatase 136 U/L (46-116); Anion Gap 7.1 mmol/L (3-11); BUN 15 mg/dL (7-18); Bilirubin, Total 0.3 mg/dL (0.2-1.0); C-Reactive Protein 22.19 mg/dL (0.0-0.3); CO2 29.9 mmol/L (21.0-32.0); CREATININE 0.8 mg/dL (0.70-1.30); Calcium 8.6 mg/dL (8.5-10.1); Chloride 97 mmol/L (98-107); Glucose 134 mg/dL (74-106); Potassium 4.5 mmol/L (3.5-5.1); Sodium 134 mmol/L (136-145); Total Protein 6.5 g/dL (6.4-8.2)
[2022-01-14 12:40] LABS: Absolute Eosinophil Count 0.94 10^3/uL (0.0-0.7)
== END 2022-01-14 11:25 | disposition home or self-care (01) ==
LOC: LBN 11:24
PROVIDERS: PCP Nurse Practitioner; Visit Provider Family Medicine
DX: M10.061 Idiopathic gout, right knee (principal); I10 Essential (primary) hypertension; R78.81 Bacteremia
CPT/HCPCS: 80053; 84550; 85025; 86140

== ENCOUNTER 2022-02-12 10:55 | Outpatient (REF) | payer MEDICARE, SELFPAY ==
[2022-02-12 11:25] LABS: Abs Immature Grans 0.14 10^3/uL (0.0-0.06); Absolute Basophil Count 0.09 10^3/uL (0.0-0.2); Absolute Eosinophil Count 0.42 10^3/uL (0.0-0.7); Absolute Lymphocyte Count 0.55 10^3/uL (1.2-3.4); Absolute Monocyte Count 0.53 10^3/uL (0.1-0.8); Absolute Neutrophil Count 5.15 10^3/uL (1.2-6.7); Basophils % 1.3; Eosinophils % 6.1; HCT 35.1 % (40.0-50.0); HGB 10.6 g/dL (13.5-17.5); MCH 25.3 pg (27.0-33.0); MCHC 30.2 % (32.0-36.0); MCV 83.8 fL (80-95); MPV 8.6 fL (8.0-11.0); Monocytes % 7.7; Neutrophils % 74.9; Nucleated RBC 0 %; Platelet Count 400 10^3/uL (130-400); RBC 4.19 10^6/uL (4.36-5.78); RDW 15.7 % (11.8-14.1); RDW-SD 47.5 fL; WBC 6.88 10^3/uL (4.4-10.8)
[2022-02-12 11:39] LABS: BUN 12 mg/dL (7-18); CREATININE 0.7 mg/dL (0.70-1.30); Calcium 8.6 mg/dL (8.5-10.1); Glucose 106 mg/dL (74-106)
[2022-02-12 11:50] LABS: Chloride 96 mmol/L (98-107); Potassium 4.4 mmol/L (3.5-5.1)
[2022-02-14 11:22] LABS: Sodium 130 mmol/L (136-145)
== END 2022-02-12 10:56 | disposition home or self-care (01) ==
LOC: LBN 10:55
PROVIDERS: PCP Nurse Practitioner; Visit Provider Nurse Practitioner Family
DX: R78.81 Bacteremia (principal); I10 Essential (primary) hypertension; E87.1 Hypo-osmolality and hyponatremia; E66.01 Morbid (severe) obesity due to excess calories
CPT/HCPCS: 80048; 85025

== ENCOUNTER 2022-03-01 16:29 | Outpatient (REF) | payer MEDICARE, SELFPAY ==
[2022-03-01 15:52] LABS: HCT 35.9 % (40.0-50.0); HGB 10.8 g/dL (13.5-17.5); MCH 24.9 pg (27.0-33.0); MCHC 30.1 % (32.0-36.0); MCV 83 fL (80-95); Platelet Count 341 10^3/uL (130-400); RBC 4.33 10^6/uL (4.36-5.78); RDW 16.6 % (11.8-14.1); RDW-SD 50.3 fL; WBC 8.42 10^3/uL (4.4-10.8)
== END 2022-03-01 16:30 | disposition home or self-care (01) ==
LOC: LBN 16:29
PROVIDERS: PCP Nurse Practitioner; Visit Provider Nurse Practitioner Family
DX: I10 Essential (primary) hypertension (principal); E87.1 Hypo-osmolality and hyponatremia; R78.81 Bacteremia
CPT/HCPCS: 80048; 85027

== ENCOUNTER 2022-08-08 17:46 | Outpatient (REF) | payer MEDICARE, SELFPAY ==
[2022-08-08 18:50] LABS: Abs Immature Grans 0.03 10^3/uL (0.0-0.06); Absolute Eosinophil Count 0.55 10^3/uL (0.0-0.7); Absolute Lymphocyte Count 0.88 10^3/uL (1.2-3.4); Absolute Monocyte Count 0.68 10^3/uL (0.1-0.8); Absolute Neutrophil Count 5.63 10^3/uL (1.2-6.7); Basophils % 1.3; HCT 44.2 % (40.0-50.0); HGB 13.8 g/dL (13.5-17.5); Immature Grans % 0.4; Lymphocytes % 11.2; MCH 26.5 pg (27.0-33.0); MCHC 31.2 % (32.0-36.0); MCV 85 fL (80-95); MPV 9.9 fL (8.0-11.0); Monocytes % 8.6; Neutrophils % 71.5; Platelet Count 293 10^3/uL (130-400); RBC 5.21 10^6/uL (4.36-5.78); RDW 16.4 % (11.8-14.1); RDW-SD 50.8 fL; WBC 7.87 10^3/uL (4.4-10.8)
[2022-08-08 19:17] LABS: Anion Gap 8.2 mmol/L (3-11); BUN 19 mg/dL (7-18); CO2 27.8 mmol/L (21.0-32.0); CREATININE 1.1 mg/dL (0.70-1.30); Calcium 9.1 mg/dL (8.5-10.1); Chloride 100 mmol/L (98-107); Estimated GFR 70.88 (mL/min/1.73m2); Glucose 83 mg/dL (74-106); Magnesium 1.9 mg/dL (1.8-2.4); Potassium 4.5 mmol/L (3.5-5.1); Sodium 136 mmol/L (136-145)
[2022-08-08 19:26] LABS: Hemoglobin A1C 5.7 % (<5.7)
== END 2022-08-08 17:47 | disposition home or self-care (01) ==
LOC: LBN 17:46
PROVIDERS: PCP Nurse Practitioner; Visit Provider Nurse Practitioner Family
DX: I63.512 Cerebral infarction due to unspecified occlusion or stenosis of left middle cerebral artery (principal); I10 Essential (primary) hypertension; E87.6 Hypokalemia; R79.89 Other specified abnormal findings of blood chemistry
CPT/HCPCS: 80048; 83036; 83735; 85025

== ENCOUNTER → 2023-09-19 07:48 | Outpatient (BNVA) | payer MEDICARE, SELFPAY | PROVIDERS: PCP Nurse Practitioner Family; Referring Provider Nurse Practitioner Family; Visit Provider Physical Therapy Assistant | DX: Z12.11 Encounter for screening for malignant neoplasm of colon (principal); Z86.010 Personal history of colon polyps ==

== ENCOUNTER 2023-10-11 07:38 | Day surgery (SDC) | payer MEDICARE, SELFPAY ==
--- NOTE | 2023-10-10 13:22 | W.COLOREPORT ---
Date of service: 10/11/23 Time of Service: 11:01 Colonoscopy Report Date of procedure: 10/11/23 Pre-op diagnosis general: Tubovillous of the rectum in 2020/sigmoid diverticula Post-op diagnosis procedure note: other (Marroquin diverticula/multiple polyps) Surgeon: Kathie Maynard Anesthesia Type: General:No Airway Estimated blood loss (mL): 1 Pathology: other Complications: None Disposition: same day Prep: Miralax/Dulcolax Retraction Time: 19 Procedure Description: After informed consent was obtained the patient was taken to the procedure room and placed in a left decubitous position. Monitors were applied and a time out was done. The patients name, date of , procedure, allergies to medications and metal in their body was reviewed. The patient was then sedated. Once sedated and comfortable a rectal exam was done. External exam was normal. Internal exam revealed a normal sphincter tone and no palpable masses. The prostate -not palpable The scope was then introduced and retrofelexed. No internal hemorrhoids were identified. The scope was then advanced to the cecum-required abdominal pressure. The TI and appendiceal orifice were identified. The prep was BBPS 2 in all segments for a total of 6. The scope was then slowly retracted over 19 minutes back into the rectum. He had a flat 5 mm polyp at 90 cm that is removed with a cold biting forcep. He has a flat 5 mm polyp at 80 cm that is removed with a cold biting forcep. He had a flat 5 mm polyp at 20 cm that is removed with a cold biting forcep. All specimen is retrieved and no bleeding is noted the scope was removed and the patient was woken up and taken back to Same day surgery in stable condition. The patient tolerated the procedure well and there were no immediate complications. Follow up: The patient should follow up in 5years, pathology pending. Unless they develop changes in bowel habits or other new gastrointestinal complaints. However given the patient's obesity/sleep apnea/heart issues, I do not feel the benefits outweigh the risk and I do not feel any further colonoscopies are required.
--- NOTE | 2023-10-10 13:32 | PDOC.DSDIS_ITS ---
Date of service: 10/11/23 Time of Service: 10:56 Discharge Plan Disposition Patient Disposition: Home Condition: Good Discharge Details Reason For Visit: Colon scope Attending Provider: Kathie Maynard Primary Care Provider: Rachel Alvarez Home Meds and New Rx's Prescriptions: Continued lisinopril 20 mg tablet 20 mg PO DAILY Qty: 90 3RF furosemide 40 mg tablet 40 mg PO DAILY Qty: 90 4RF allopurinol 100 mg tablet 100 mg PO DAILY Qty: 90 3RF ferrous sulfate 325 mg (65 mg iron) tablet 325 mg PO BID Qty: 120 3RF calcium carbonate-vitamin D3 [Calcium 600 + D(3)] 600 mg-10 mcg (400 unit) tablet 1 tab PO DAILY vitamin E (dl, acetate) 180 mg (400 unit) capsule 180 mg PO DAILY Discontinued bisacodyl [Dulcolax (bisacodyl)] 5 mg tablet,delayed release (DR/EC) 5 mg PO ONCE Qty: 4 0RF Rx Instructions: Take per colonoscopy instructions provided by ordering providers office polyethylene glycol 3350 17 gram/dose powder 17 g PO ONCE Qty: 238 0RF Rx Instructions: Take per colonoscopy instructions provided by ordering providers office Discharge Instructions Additional Instructions: DSU Colonoscopy Post- Op Instructions Instructions for Everyone who is given Anesthesia: For your safety, please do the following for the next twenty-four (24) hours: *Do Not operate a motor vehicle (car, truck, motorcycle, etc.) *Do Not drink alcoholic beverages or use any recreational drugs for the first 24 hours or while taking pain medications. The medications in your body may have a reaction that can be dangerous. *Do Not make any important decisions or sign any important papers. Findings: Multiple polyps Marroquin diverticula Follow up: My office will send you a letter in 2 to 3 weeks time with the results of the pathology. 1. No lifting over 20 pounds or strenuous activity for the first 24 hours after your procedure. After 24 hours there are no restrictions on your activity but you may feel fatigued for a few days. 2. After you arrive home you may have a light meal and return to your normal diet as you can tolerate it without feeling sick to your stomach. 3. You may have a bloated, gaseous feeling in your belly (abdomen) after a colonoscopy. Passing gas and belching will help. Walking or lying down on your left side with your knees flexed may relieve the discomfort. Call the office at [phone] (Office) or [phone] (Hospital) right away if you notice any of the following: a.Vomiting of blood or ?coffee ground stools?. b.Rectal bleeding 1Tbsp, blood clots or continuous bleeding. c.Severe belly (abdominal) pain. d.A hard distended belly (abdomen) and an inability to pass gas. 4. Please don?t expect to have a normal BM (bowel movement) for 2-3 days after your procedure. 5. If there are questions regarding the findings of your procedure, please contact your doctor 6. If you are unable to contact your doctor with a problem, contact the hospital at [phone]. 7. Continue all your regular medications unless directed otherwise. I understand the above instructions and have no questions. Signature of Patient or Adult Escort Name of Responsible Adult Escort Signature of Nurse Date/Time Activity:: See above Diet:: See above Discharge Orders Discharge Orders: Discharge Order (Routine); Ordered 10/11/23 Ordered By: Kathie Maynard DS: Diagnosis Discharge Diagnosis (1) Colon polyps: Status: Acute Asessment and Plan: Patient has a history of villous adenomas. He had repeat adenomas on his colonoscopy today. At this point further colonoscopies, the benefits do not outweigh the risks. (2) Obesity: Status: Acute (3) Low back pain: Status: Chronic (4) Essential hypertension: Status: Chronic (5) POLST (Physician Orders for Life-Sustaining Treatment): (6) History of tobacco use: (7) History of alcoholism: (8) Diverticula of colon: Status: Acute Asessment and Plan: The patient is seen and examined after their colonoscopy.? The patient has been able to pass gas.? They are not having abdominal pain.? They have been able to tolerate liquids and a snack.? They do not have any nausea or vomiting.? They are not having any chest pain or shortness of breath.??? They are not having any rectal bleeding. Their vital signs have been stable-see nursing notes. We discussed findings during their colonoscopy, and any biopsies that were done/polyps that were removed. The patient will be sent a letter with any biopsy results, and when to repeat the colonoscopy.-see discharge instructions. Patient was given explicit instructions to follow-up regarding colonoscopy-refer to discharge instructions.? We reviewed resumption of medications. Patient verbalized understanding and discharged in stable and satisfactory condition- See nursing notes. (9) Premature atrial contractions: Status: Acute
[2023-10-11] VITALS (7 sets, daily range): BP systolic 84–140; BP diastolic 36–67; PULSE 61–73; RESP 11–20; TEMP 36.3–36.5; O2SAT 93–98; BMI 50.3
--- NOTE | 2023-10-11 08:45 | RT.EKG_ITS ---
APPROVED REPORT Exam: Resting ECG Reason for Exam: Preop, irregular rhythm Patient Location: O HR:83 bpm ECG Measurements Heart Rate 83 AXIS AR 261 P 269 QRSd 145 QRS -62 QT 395 T 80 QTc 423 Conclusion Sinus rhythm...P axis (-45,135) Atrial premature beats Artifact Prolonged AR interval...AR >220, V-rate 50- 90
--- NOTE | 2023-10-11 08:46 | W.ANESPRE ---
General Info Date of Service Date Performed: 10/11/23 Height: 5 ft 9 in Weight: 154.7 kg Body Mass Index (BMI): 50.3 Surgical Procedure: Operation Date: 10/11/23 09:05 Proposed Procedure Side Surgeon cande Maynard, DO Meds Allergies and Home Medications Allergies Allergy/AdvReac Type Severity Reaction Status Date / Time amoxicillin Allergy Intermediate SKIN RASH Verified 10/11/23 08:02 cephalexin monohydrate Allergy Intermediate Skin Rash Verified 10/11/23 08:02 [From Keflex] clavulanic acid Allergy Intermediate SKIN RASH Verified 10/11/23 08:02 clindamycin Allergy Intermediate HIVES, Verified 10/11/23 08:02 ITCHING Home Medication Medication Instructions Recorded allopurinol 100 mg tablet 100 mg PO DAILY #90 tabs 09/17/22 ferrous sulfate 325 mg (65 mg 325 mg PO BID #120 tabs 09/17/22 iron) tablet furosemide 40 mg tablet 40 mg PO DAILY #90 tabs 09/17/22 lisinopril 20 mg tablet 20 mg PO DAILY #90 tabs 12/25/22 bisacodyl 5 mg tablet,delayed 5 mg PO ONCE #4 tabs 09/19/23 release (Dulcolax (bisacodyl)) polyethylene glycol 3350 17 17 g PO ONCE #238 grams 09/19/23 gram/dose oral powder calcium carbonate 600 mg-vitamin 1 tab PO DAILY 10/11/23 D3 10 mcg (400 unit) tablet (Calcium 600 + D(3)) vitamin E (dl, acetate) 180 mg 180 mg PO DAILY 10/11/23 (400 unit) capsule Current Visit Medications: Current Medications Generic Name Dose Route Start Last Admin Trade Name Freq PRN Reason Stop Dose Admin Hyoscyamine Sulfate 0.125 mg 10/11/23 11:15 Hyoscyamine 0.125 Mg Sl/Oral/Chew SL 11/10/23 11:14 DIRECTED PRN Ringer's Solution 1,000 mls @ 80 mls/hr 10/11/23 06:00 IV 11/09/23 23:59 INFUSION GEORGE IV Miscellaneous Supplies 1 each 10/11/23 06:00 Iv Access IV 11/09/23 23:59 DIRECTED GEORGE Ondansetron HCl 4 mg 10/11/23 08:15 Ondansetron 4 Mg/2 Ml Vial IVP 11/10/23 08:14 Q4H PRN PRN Nausea / Vomiting Sodium Chloride 0 ml 10/11/23 06:00 Normal Saline Flush 10 Ml Syr IV 11/09/23 23:59 PRN PRN Sodium Chloride 0 ml 10/11/23 06:00 Normal Saline 10 Ml Vial IJ 11/09/23 23:59 DIRECTED PRN Sterile Water 0 ml 10/11/23 06:00 Water,Injection,Sterile 10 Ml Vial IJ 11/09/23 23:59 DIRECTED PRN PFSH Active Problems Active Problems: Problem Status Onset Code Edema R60.9 Colon polyps K63.5 Obesity 05/27/13 E66.9 Low back pain M54.5 Essential hypertension 08/04/13 I10 Medical History Medical History Gout POLST (Physician Orders for Life-Sustaining Treatment) DNI (do not intubate) DNR (do not resuscitate) Palliative care patient Ulcer of other part of foot (10/03/95) Renal failure syndrome (05/27/13) History of tobacco use quit in 1995 History of alcoholism quit 1989 Surgical History Surgical History History of excision of mass History of colonoscopy PROCEDURES EXCIS SPINAL CORD LESION, 1981 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 Tobacco Smoking/Tobacco Use Status: Former Tobacco Use Passive smoking exposure: Yes Second hand exposure: No Alcohol Alcohol Intake: former Substance Use Substance use: Never Substance use type: does not use Details: Pt states sober since 1995 Vital Signs and Lab Results Vital Signs Most Recent Vital Signs in EMR: Most Recent Vital Signs Temp Pulse Resp BP Pulse Ox 36.5 C 72 20 140/43 L 93 10/11/23 08:04 10/11/23 08:04 10/11/23 08:04 10/11/23 08:04 10/11/23 08:04 Lab Results Blood Type / Crossmatch: No Data to Display Complete Blood Count: No Data to Display Complete Metabolic Panel: No Data to Display Liver Function Panel: No Data to Display Coagulation Panel: No Data to Display Cardiac Panel: No Data to Display Arterial Blood Gas: No Data to Display Venous Blood Gas: No Data to Display Pancreas Panel: No Data to Display Thyroid Panel: No Data to Display Infectious Disease: No Data to Display Blood Cultures: No Data to Display Toxicology Panel: No Data to Display Imaging and Studies Imaging and Studies Study information below may be from another EMR and interpreted by another provider. Please see original notes in EMR for more complete details. EKG Summary: Conclusion Sinus rhythm...normal P axis, V-rate 60- 99 Atrial premature complexes...SV complexes w/ short R-R intvls Borderline prolonged CT interval...CT >207, V-rate 91-120 ST elevation secondary to IVCD...Multiple VCG criteria ST elevation, consider inferior injury...ST >0.08mV, II III aVF sinus rhythm at 99, frequent PVCs, and of intraventricular conduction delay, no STEMI, nondiagnostic EKG 12/18/21 Echocardiogram Summary: Conclusion Normal left ventricular wall thickness and chamber size. Estimated ejection fraction is approximately 60%. Wall motion appears normal Normal right ventricular size and systolic function Both atria are normal in size Aortic valve sclerosis without stenosis or regurgitation Mild mitral annular calcification. Mild mitral regurgitation Normal tricuspid valve with trace to mild regurgitation. Estimated right ventricular systolic pressure is 27 mmHg 12/19/21 Anesthesia Assessment and Plan Anesthesia History Personal History: No History of Anesthesia Complications Family History: No Family History of Anesthesia Complications Exercise Tolerance Exercise Tolerance: Metabolic Equivalents<4 Pertinent Negatives Pertinent Negatives: No Major Cardiovascular Symptoms or Complaints and No Major Pulmonary Symptoms or Complaints Cardiac & Pulmonary Exam Cardiac Exam: Normal S1/S2 Heart Sounds Pulmonary Exam: Clear Bilateral Breath Sounds Implantable Cardiac Device Does patient have a Pacemaker or an ICD?: No Airway Exam Known Difficult Airway: No Mallampati Class: 2 Mouth Opening: Normal (> 3cm) Thyromental Distance: Greater than 3 cm Neck Range of Motion: Full ROM Neck Circumference: Thick Teeth Condition: Generalized Poor Dentition (none loose per patient, nine teeth left) ASA Classification ASA Score: ASA 3 Emergency Case?: No NPO Status NPO Status: NPO Clears >2 hours, Solids >8 hours Anesthesia Plan Resuscitation Status: Full Code Anesthesia Technique: General Anesthesia Airway Planned: Natural Airway Monitors Used: Standard Monitors Preoperative Comments:: Ordered EKG to clarify rhythm, irregular. Rate 70's EKG today unchanged from 12/2021, First degree AVB, LBBB with freq PACs
[2023-10-11] MEDS: Lactated Ringers 1,000 ML 80 ML IV (09:25)
--- NOTE | 2023-10-11 09:57 | BOWEL_PTH ---
PATIENT: Ezio Paulson I LOC: [facility] U#:[id number] AGE/SX: 73/M ROOM: RE10/11/[address]: Kathie Maynard : 1950 BED: DIS: 10/11/2023 SPEC #: [id number] RECD: 10/11/23 12:05 STATUS: ALINA RE #: [id number] GUSTAVO: 10/11/23 09:[address]: Kathie Maynard DEPT: Surgical Specimen RECD BY: Josie Crook ENTERED: 10/11/23 12:07 SP TYPE: Bowel OTHR DR: Rachel Alavrez, RN [facility] Tissues: 1 - BIOPSY BOWEL 2 - BIOPSY BOWEL 3 - BIOPSY BOWEL Procedures: GROSS AND MICRO LEVEL 4 Comments: [id number]
--- NOTE | 2023-10-11 11:26 | W.ANESPOSTOP ---
Postoperative Evaluation Date, Time and Location Date Performed: 10/11/23 Time Performed: 11:05 Patient Location: Day Surgery Unit Vital Signs Most Recent Imported Vital Signs: Most Recent Vital Signs Temp Pulse Resp BP Pulse Ox 36.4 C L 61 18 113/56 L 98 10/11/23 11:00 10/11/23 11:00 10/11/23 11:00 10/11/23 11:00 10/11/23 11:00 Pain Score Most Recent Pain Score: Most Recent Pain Score Pain Level 0 10/11/23 11:00 Assessment Mental Status: Awake (Alert & Oriented to Patient Baseline) Airway and Respiratory Function: Patent airway with normal (patient baseline) respiratory exam Cardiovascular Function: Hemodynamically Stable Hydration Status: Adequately Hydrated Nausea & Vomiting: No Nausea or Vomiting Pain: Pt. Denies Any Pain Peripheral Nerve Block: Patient did not receive a nerve block
== END 2023-10-11 11:37 | disposition home or self-care (01) ==
PROVIDERS: PCP Nurse Practitioner Family; Visit Provider Surgery
PROC: 0DJD8ZZ Inspection of Lower Intestinal Tract, Via Natural or Artificial Opening Endoscopic (ICD-10-PCS; CPT 45378; principal; 2023-10-11 09:00)
DX: Z12.11 Encounter for screening for malignant neoplasm of colon (principal); K63.5 Polyp of colon; K57.30 Diverticulosis of large intestine without perforation or abscess without bleeding; E66.9 Obesity, unspecified; I10 Essential (primary) hypertension; Z87.891 Personal history of nicotine dependence
CPT/HCPCS: 45380; 88305; 93005; 93010; J2001

== ENCOUNTER 2024-01-14 04:28 | Outpatient (CLI) | payer MEDICARE, SELFPAY ==
[2024-01-14 12:47] LABS: HCT 49.8 % (40.0-50.0); HGB 15.5 g/dL (13.5-17.5); MCH 27.5 pg (27.0-33.0); MCHC 31.1 % (32.0-36.0); MCV 89 fL (80-95); MPV 10.3 fL (8.0-11.0); Platelet Count 243 10^3/uL (130-400); RBC 5.63 10^6/uL (4.36-5.78); RDW 15.2 % (11.8-14.1); RDW-SD 49.2 fL; WBC 8.12 10^3/uL (4.4-10.8)
[2024-01-14 13:01] LABS: ALT 24 U/L (16-63); AST 22 U/L (15-37); Albumin 3.6 g/dL (3.4-5.0); Alkaline Phosphatase 111 U/L (46-116); Anion Gap 6.6 mmol/L (3-11); BUN 24 mg/dL (7-18); Bilirubin, Total 0.4 mg/dL (0.2-1.0); CO2 31.4 mmol/L (21.0-32.0); CREATININE 1.4 mg/dL (0.70-1.30); Calcium 9.5 mg/dL (8.5-10.1); Calculated LDL 121 mg/dL (<100); Chloride 105 mmol/L (98-107); Cholesterol 176 mg/dL (<200); Estimated GFR 52.74 (mL/min/1.73m2); Glucose 105 mg/dL (74-106); HDL Cholesterol 39 mg/dL (40-60); Potassium 4.4 mmol/L (3.5-5.1); Sodium 143 mmol/L (136-145); Triglyceride 80 mg/dL (<150)
== END 2024-01-14 04:29 | disposition home or self-care (01) ==
LOC: LOS 04:29
PROVIDERS: PCP Nurse Practitioner Family; Visit Provider Nurse Practitioner Family
DX: I10 Essential (primary) hypertension (principal); R60.0 Localized edema; R79.89 Other specified abnormal findings of blood chemistry; E66.9 Obesity, unspecified
CPT/HCPCS: 36415; 80053; 80061; 85027

== ENCOUNTER 2024-12-09 15:55 | Emergency (ER) | payer MEDICARE, SELFPAY ==
[2024-12-09] VITALS (216 sets, daily range): BP systolic 69–217; BP diastolic 35–186; PULSE 59–118; RESP 16; TEMP 33.7–36.1; O2SAT 87–98
[2024-12-09 16:17] LABS: Abs Immature Grans 0.25 10^3/uL (0.0-0.06); Absolute Basophil Count 0.09 10^3/uL (0.0-0.2); Absolute Eosinophil Count 0.14 10^3/uL (0.0-0.7); Absolute Lymphocyte Count 0.76 10^3/uL (1.2-3.4); Absolute Monocyte Count 0.72 10^3/uL (0.1-0.8); Basophils % 0.7 %; Eosinophils % 1.1 %; HCT 48.9 % (40.0-50.0); HGB 14.9 g/dL (13.5-17.5); Immature Grans % 1.9 %; Lymphocytes % 5.8 %; MCH 27.4 pg (27.0-33.0); MCHC 30.5 % (32.0-36.0); MCV 90 fL (80-95); MPV 9.8 fL (8.0-11.0); Monocytes % 5.5 %; Platelet Count 391 10^3/uL (130-400); RBC 5.43 10^6/uL (4.36-5.78); RDW 17.2 % (11.8-14.1); RDW-SD 56.2 fL; WBC 13.17 10^3/uL (4.4-10.8)
[2024-12-09 16:18] LABS: Absolute Neutrophil Count 11.19 10^3/uL (1.2-6.7)
[2024-12-09 16:25] LABS: Lactate 2.3 mmol/L (<or=2.0)
[2024-12-09 16:44] LABS: ALT 63 U/L (16-63); AST 117 U/L (15-37); Albumin 2.8 g/dL (3.4-5.0); Alkaline Phosphatase 126 U/L (46-116); Bilirubin, Total 1.09 mg/dL (0.2-1.0); Calcium 8.9 mg/dL (8.5-10.1); Chloride 112 mmol/L (98-107); Estimated GFR 13.26 (mL/min/1.73m2); Glucose 108 mg/dL (74-106); Magnesium 3.7 mg/dL (1.8-2.4); NT-proBNP 364 pg/mL (<300); Potassium 5.1 mmol/L (3.5-5.1); Sodium 150 mmol/L (136-145); Total Protein 8.5 g/dL (6.4-8.2); Troponin I 22 ng/L (<or=76)
[2024-12-09 16:47] LABS: Creatine Kinase 1240 U/L (39-308)
[2024-12-09 16:48] LABS: BUN 143 mg/dL (7-18); CREATININE 4.4 mg/dL (0.70-1.30)
[2024-12-09] MEDS: Lactated Ringers 1,000 ML 1000 ML IV ×3 (16:48→20:22)
[2024-12-09 17:29] LABS: Troponin I 21 ng/L (<or=76)
[2024-12-09 17:46] LABS: Bilirubin Small (Negative); Blood Trace-intact (Negative); Clarity Clear (Clear); Glucose Negative (Negative); Ketones Negative (Negative); Leukocyte Esterase Small (Negative); Nitrite Negative (Negative); Urobilinogen 0.2 mg/dL (Up to 0.2); pH 5.5 (5-8)
--- NOTE | 2024-12-09 17:53 | NUR.NOTE ---
Pt presented to the ED after being on the floor for three days. pt was grossly soiled, alert and oriented and cool to the touch, core temp on arrival was 34.3 Iv access was obtained labs drawn and initial liter of LR was hung. Koko hugger was applied and temp sensing indwelling catheter inserted and UA sent to the lab. Arterial line was placed by Dr. Mejia. square wave test perfromed and adequate wave form acknowledged by both Dr. Guzman and this ghost writer.
[2024-12-09 17:55] LABS: Bacteria Few HPF (Negative); C & S Indicated? Yes; Crystals Negative HPF (Negative); Epithelial Cells Negative HPF (Negative); Mucus Negative (Negative); WBC 20-50 HPF (0-5)
[2024-12-09] MEDS: Norepinephrine in D5W 8 MG/250 ML BAG 9.375 MG IV (18:41)
--- NOTE | 2024-12-09 18:45 | RT.EKG_ITS ---
APPROVED REPORT Exam: Resting ECG Reason for Exam: Shock Patient Location: E HR:88 bpm ECG Measurements Heart Rate 88 AXIS VA [id number] P [id number] QRSd 126 QRS -69 QT 423 T 106 QTc 512 Conclusion Atrial fibrillation, rate 88, new from priors LBBB No STEMI Prolonged QTc at 512ms
--- NOTE | 2024-12-09 18:56 | W.ED.GENAD ---
Discharge Plan Disposition Patient Disposition: Transfer-Acute Inpatient Care Specific Acute Inpt Facility: [facility] Condition: Fair Discharge Details Chief Complaint: Fall/Non TraumaCriteria Clinical Impression: Hypovolemic shock, GORGE (acute kidney injury), Essential hypertension Primary Care Provider: Rachel Alvarez ED Provider: Kelsie Mejia Home Meds and New Rx's Prescriptions: No Action lisinopril 20 mg tablet 20 mg PO DAILY Qty: 90 3RF ferrous sulfate 325 mg (65 mg iron) tablet 325 mg PO BID Qty: 120 3RF furosemide 40 mg tablet 40 mg PO DAILY Qty: 90 4RF allopurinol 100 mg tablet 100 mg PO DAILY Qty: 90 3RF calcium carbonate-vitamin D3 [Calcium 600 + D(3)] 600 mg-10 mcg (400 unit) tablet 1 tab PO DAILY vitamin E (dl, acetate) 180 mg (400 unit) capsule 180 mg PO DAILY HPI General Mode of arrival: EMS. Date/Time Provider Initiated Documentation: 12/09/24 15:56. Limitations to Documentation: no limitations. Information obtained by: patient, EMS and old records reviewed. HPI Narrative: HPI: This is a 74-year-old male patient with a past medical history significant for obesity and hypertension who is presenting for evaluation after a prolonged downtime. The patient slid out of his bed at home and has been on the floor for the last 3 days. Today EMS was summoned, and were able to get him up off the floor. He is complaining of some slurring of speech and feels very dehydrated. EMS reports that he had a normal blood pressure and blood sugar during transport, provided him with a 500 cc bag of fluids, and he arrived at our facility stating that he does not have any specific complaints or pain, just feels very dehydrated. He did have a slightly low temperature by tympanic reading, he is not on the house but the floor was quite cool. According to EMS report, the patient's friend who found him today provided him with a dose of his Lasix as well as his allopurinol as he is missed them for the last few days. Exam: Gen: Awake and alert, in no apparent distress HEENT: Non-icteric sclera, PERRL Neck: Supple Lungs: No apparent respiratory distress, normal respiratory effort. Lung sounds present and equal bilaterally CV: Appears well perfused, heart with regular rate and rhythm Abdomen: Non-distended, soft, nontender MSK: Moves 4 extremities without apparent limitation in ROM Skin: Visualized skin with notable skin tear and redness to the sacrum and lower back Neuro: No obvious focal deficits or facial asymmetry. Speaks with some slurring of speech, no word finding difficulties Psych: Appropriate for situation. MDM: This is a 74-year-old male patient presenting via EMS after a prolonged downtime. Differential includes but is not limited to dehydration, kidney injury, rhabdomyolysis, metabolic and electrolyte derangement, pressure injury, considered hypothermia. The patient slurring of speech does concern me for a potential stroke, intracranial hemorrhage, though there was no traumatic injuries reported by the patient. We will obtain laboratory studies to include CBC, CMP, magnesium, troponin, BNP, urinalysis. ED Course: The patient was noted to be hypotensive at our first vitals recheck, for which a liter of IV fluids was ordered. I reviewed the patient's laboratory studies, which noted a leukocytosis to 13, no anemia or thrombocytopenia. Lactate is slightly elevated to 2.3. Chemistry panel is most notable for an acute kidney injury, with a BUN of 143 and a creatinine of 4.4. He does have some elevation in his sodium to 150, concerning for prerenal azotemia and dehydration. Magnesium elevated to 3.7, no significant elevation in liver enzymes. CK elevated to 1240, initial troponin negative. BNP is low, and the urinalysis demonstrates some pyuria after temp sensing Steinberg placement, for which I provided the patient with a dose of ceftriaxone. A second liter of IV fluids was provided for persistent hypotension, and an art line was placed confirming low blood pressures. After failure to improve with fluid resuscitation I did start the patient on a low-dose of norepinephrine to good effect. I reviewed the patient's EKG, which shows atrial fibrillation with a left bundle branch block but no evidence for acute ischemia. I did discuss this patient's case with the [facility] ICU team, who graciously accepted this patient for admission to their service given our inability to provide renal replacement therapy if needed. They recommended a bedside echo for fluid management, which I did perform. The patient remains with a collapsible IVC and no evidence of B-lines, and so I did provide him with a third L of IV fluid to allow us to continue to down titrate the norepinephrine. He was transferred to [facility] on a dose of 5 mcg/min. Remained hemodynamically improved otherwise throughout his time under my care. Kelsie Mejia MD Related Data Home Medications ?Medication ?Instructions ?Recorded ?Confirmed calcium 600 mg (as 1 tab PO DAILY 10/11/23 12/09/24 carbonate)-vitamin D3 10 mcg (400 unit) tablet (Calcium 600 + D(3)) vitamin E (dl, acetate) 180 mg 180 mg PO DAILY 10/11/23 12/09/24 (400 unit) capsule ferrous sulfate 325 mg (65 mg 325 mg PO BID #120 tabs 12/11/23 12/09/24 iron) tablet furosemide 40 mg tablet 40 mg PO DAILY #90 tabs 12/11/23 12/09/24 lisinopril 20 mg tablet 20 mg PO DAILY #90 tabs 12/30/23 12/09/24 allopurinol 100 mg tablet 100 mg PO DAILY #90 tabs 11/24/24 12/09/24 Previous Rx's ?Medication ?Instructions ?Recorded ferrous sulfate 325 mg (65 mg 325 mg PO BID #120 tabs 12/11/23 iron) tablet furosemide 40 mg tablet 40 mg PO DAILY #90 tabs 12/11/23 lisinopril 20 mg tablet 20 mg PO DAILY #90 tabs 12/30/23 allopurinol 100 mg tablet 100 mg PO DAILY #90 tabs 11/24/24 Allergies Allergy/AdvReac Type Severity Reaction Status Date / Time amoxicillin Allergy Intermediate SKIN RASH Verified 12/09/24 16:10 cephalexin monohydrate (From Allergy Intermediate Skin Rash Verified 12/09/24 16:10 Keflex) clavulanic acid Allergy Intermediate SKIN RASH Verified 12/09/24 16:10 clindamycin Allergy Intermediate HIVES, Verified 12/09/24 16:10 ITCHING General Stated Complaint: Fall/Non TraumaCriteria ALMA: 3 Course Vital Signs Vital signs: Vital Signs Temperature 34.7 C L 12/09/24 16:04 Pulse 72 12/09/24 16:04 Respiratory Rate 16 12/09/24 16:04 Blood Pressure 217/186 H 12/09/24 16:04 Pulse Oximetry 98 12/09/24 16:04 Temperature 34.7 C L 12/09/24 18:40 Temperature Source Rectal 12/09/24 16:04 Pulse 68 12/09/24 18:40 Pulse 80 12/09/24 18:40 Respiratory Rate 16 12/09/24 16:04 Blood Pressure 73/55 L 12/09/24 17:18 Blood Pressure Mean 59 12/09/24 17:18 Pulse Oximetry 93 12/09/24 18:40 Oxygen Delivery Method Room Air 12/09/24 16:04 Oxygen Flow Rate 0 12/09/24 16:04 Pain Level 9 12/09/24 16:04 Arterial Systolic 73 12/09/24 18:40 Arterial Diastolic 37 12/09/24 18:40 Arterial Mean 49 12/09/24 18:40 Lab/Test Results Lab/Test Results: 12/09/24 17:35 Urine - Reflex from Ua Urine Culture - Pending Laboratory Tests Range/Units 12/09/24 12/09/24 12/09/24 16:08 17:07 17:35 WBC (4.4-10.8) 10^3/uL 13.17 H RBC (4.36-5.78) 10^6/uL 5.43 Hgb (13.5-17.5) g/dL 14.9 Hct (40.0-50.0) % 48.9 MCV (80-95) fL 90 MCH (27.0-33.0) pg 27.4 MCHC (32.0-36.0) % 30.5 L RDW (11.8-14.1) % 17.2 H Plt Count (130-400) 10^3/uL 391 MPV (8.0-11.0) fL 9.8 Immature Gran % % 1.9 Neutrophils % % 85.0 Lymphocytes % % 5.8 Monocytes % % 5.5 Eosinophils % % 1.1 Basophils % % 0.7 Nucleated RBC % (0.0-0.3) % 0.0 Absolute Neutrophils (1.2-6.7) 10^3/uL 11.19 H Absolute Lymphocytes (1.2-3.4) 10^3/uL 0.76 L Absolute Monocytes (0.1-0.8) 10^3/uL 0.72 Absolute Eosinophils (0.0-0.7) 10^3/uL 0.14 Absolute Basophils (0.0-0.2) 10^3/uL 0.09 VBG Lactate (<or=2.0) mmol/L 2.3 H* Sodium (136-145) mmol/L 150 H Potassium (3.5-5.1) mmol/L 5.1 Chloride (98-107) mmol/L 112 H Carbon Dioxide (21.0-32.0) mmol/L 26.0 Anion Gap (3-11) mmol/L 12.0 H BUN (7-18) mg/dL 143 H* Creatinine (0.70-1.30) mg/dL 4.4 H* Est GFR (CKD-EPI 2020) (mL/min/1.73m2) 13.26 Glucose (74-106) mg/dL 108 H Calcium (8.5-10.1) mg/dL 8.9 Magnesium (1.8-2.4) mg/dL 3.7 H Total Bilirubin (0.2-1.0) mg/dL 1.09 H AST (15-37) U/L 117 H ALT (16-63) U/L 63 Alkaline Phosphatase (46-116) U/L 126 H Creatine Kinase (39-308) U/L 1240 H Troponin I (<or=76) ng/L 22 21 NT-Pro-B Natriuret Pep (<300) pg/mL 364 H Total Protein (6.4-8.2) g/dL 8.5 H Albumin (3.4-5.0) g/dL 2.8 L Urine Color (Yellow) Dark Yellow Urine Clarity (Clear) Clear Urine pH (5-8) 5.5 Ur Specific [place] (1.005-1.025) 1.020 Urine Protein (Neg-Trace) mg/dL 100 H Urine Ketones (Negative) mg/dL Negative Urine Blood (Negative) Trace-intact H Urine Nitrite (Negative) Negative Urine Bilirubin (Negative) Small H Urine Urobilinogen (Up to 0.2) mg/dL 0.2 Ur Leukocyte Esterase (Negative) Small H Urine RBC (0-2) HPF 3-5 H Urine WBC (0-5) HPF 20-50 H Ur Epithelial Cells (Negative) HPF Negative Urine Crystals (Negative) HPF Negative Urine Bacteria (Negative) HPF Few Urine Mucus (Negative) Negative Ur Culture Indicated? Yes Urine Glucose (Negative) mg/dL Negative Procedure Arterial Line Date of Procedure: 12/09/24 Time of Procedure: 17:00 Indication: BP Monitoring and Hypotension Patient Consented: Emergent Case Sterility: Sterile Local Anesthetic: Lidocaine 1% Amount of anesthetic used(mL): 1 Laterality: Right Insertion Site: Radial Arterial Line Catheter: 20G Arrow Arterial Line Procedure: 1% Lidocaine to skin and subcutaneous tissue with 25g needle, Vessel accessed with needle, Vessel accessed with catheter over needle, Guidewire placed with ease, Catheter placed without resistance and Guidewire removed Ultrasound: Used/Image Saved (Image not saved) Number of Attempts( see previous attempts in note section): 2 Dressing: Tegaderm Applied and Sutured in Place Procedure Tolerated: No Complications and Patient tolerated well Procedure Outcome: Successful Medical Decision Making Quality:SDOH Health Related Social Needs: No Data to Display Critical Care Time Critical Care Time Critical Care Time: Yes Total Critical Care Time: 60 Attestation: Upon my evaluation, this patient had a high probability of imminent or life-threatening deterioration due to prerenal azotemia, hypovolemic shock, which required my direct attention, intervention, and personal management. I have personally provided 60 minutes of critical care time exclusive of time spent on separately billable procedures. Time includes review of laboratory data, radiology results, discussion with consultants, and monitoring for potential decompensation. Interventions were performed as documented above. Kelsie Mejia MD [facility] All Active Problems (Updated 12/09/24 @ 21:57 by Kelsie Mejia MD) GORGE (acute kidney injury) (Acute) Hypovolemic shock (Acute) Hyperplastic colon polyp (Acute ~10/2023) Premature atrial contractions (Acute) Diverticula of colon (Acute) Marroquin diverticula Edema (Chronic) Colon polyps (Acute) Villous adenoma. 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) Essential hypertension (Chronic 08/04/13) Medical History (Updated 12/09/24 @ 21:57 by Kelsie Mejia MD) Gout POLST (Physician Orders for Life-Sustaining Treatment) DNI (do not intubate) DNR (do not resuscitate) Palliative care patient Ulcer of other part of foot (10/03/95) Renal failure syndrome (05/27/13) History of tobacco use quit in 1995 History of alcoholism quit 1989 Surgical History (Updated 10/11/23 @ 13:35 by Obdulia Robb) History of excision of mass History of colonoscopy (~10/2023) path sent PROCEDURES EXCIS SPINAL CORD LESION, 1982 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 Sister No problems noted. Sister No problems noted. Sister No problems noted. Social History (Updated 01/06/24 @ 11:14 by Alana Fernandez) Smoking/Tobacco Use Status: Former Tobacco Use tobacco type: cigarettes Quit Date: 11/04/95 Tobacco: How many years used: 25 Second Hand Exposure: No Smoking risk assessment performed?: Yes Alcohol Intake: former Drug use: Never Substance use type: does not use Details: Pt states sober since 1995 Adopted: No Caregiver/Support person: No Household members: none Housing: house Communication Needs: None Education Level: high school Do you need help understanding health information?: Never current occupation: retired Pets and animals: No Sexually active: No Do you think of yourself as: straight/heterosexual Current gender identity: male What is your relationship status?: How often do you talk on the phone with friends or family?: twice per week How often do you get together with friends or relatives?: twice per week How often do you attend quaker or zoroastrian services?: 1-3 times per year Do you belong to any clubs or organized social groups?: no Panel score (0-1 are the most socially isolated patients): 1 What type of physical activity do you participate in: swimming Duration: 30-45 minutes/day Frequency: 3-4 times per week Dasha/Alevism: No preference Special dasha needs: No Seatbelt use: always Helmet use: No Drive intox or ride w/intox sweeper driver: No Firearms in home: No Do you feel safe at home: Yes Victim of physical abuse: No Victim of emotional abuse: No Victim of sexual abuse: No Would you like helpful sources: No Additional Social history: Live alone POCUS Exam (ED) Limited Cardiac Exam DATE OF EXAM: 12/09/24 TIME OF EXAM: 20:00 PROVIDER THAT PERFORMED THE STUDY: Kelsie Mejia IS THIS A REPEAT EXAM DURING THIS ENCOUNTER: no REASON FOR EXAM: Hypovolemic shock VISUALIZED STRUCTURES: Four Chambers, IVC and Other structure: b/l lungs VIEW OBTAINED: Subxiphoid and Other (b/l anterior lungs, IVC) PERTINENT FINDINGS/IMPRESSION: IVC inspiratory collapsability and Other No B lines ; No pericardial effusion Exam complete
[2024-12-09] MEDS: cefTRIAXone 1 GM/50 ML BAG IVPB (18:57)
[2024-12-09 19:28] LABS: COVID-19 PCR Negative (Negative); Influenza A PCR Negative (Negative); Influenza B PCR Negative (Negative); RSV PCR Negative (Negative)
[2024-12-09 19:29] LABS: Source Nasopharynx
--- NOTE | 2024-12-09 20:20 | NUR.NOTE ---
bedside POCUS study performed by Dr. Enriquez. Third liter of LR hung as ordered. Norepinephrine running at 2.5 mcg/min
--- NOTE | 2024-12-10 08:01 | NUR.NOTE ---
Ashlee Koroma who was here yesterday with patient called asking how the patient was doing. He was told that he was transferred to [facility]. Nursing Note:
== END 2024-12-09 21:53 | disposition short-term general hospital (02) ==
PROVIDERS: Emergency Provider Emergency Medicine; PCP Nurse Practitioner Family
DX: R57.1 Hypovolemic shock (principal); N17.9 Acute kidney failure, unspecified; I48.91 Unspecified atrial fibrillation; I44.7 Left bundle-branch block, unspecified; I10 Essential (primary) hypertension; Z66 Do not resuscitate; Z87.891 Personal history of nicotine dependence
CPT/HCPCS: 36415; 36620; 76937; 80053; 82550; 87077; 87637; 93005; 93308; 96361; 96365; 96366; 96368; 99291; 81003; 81015; 83605; 83735; 83880; 84484; 85025; 87086; 87186; 93010; J0696